=== PATIENT | female | born 1935 | race African-American/Black ===

== ENCOUNTER → 2016-03-31 | Outpatient (CLI) | payer MEDICARE, MEDICAID ==
[2016-03-31 11:46] LABS: HEMATOCRIT 36.6 % (36.0-47.0); HEMOGLOBIN 11.8 g/dL (12.0-15.5); HGB HCT DIFFERENCE -1.2; MEAN CORPUSCULAR HEMOGLOBIN 25.6 pg (27.0-33.4); MEAN CORPUSCULAR HGB CONC 32.3 g/dL (32.0-36.0); MEAN CORPUSCULAR VOLUME 79 fl (80-97); RED BLOOD COUNT 4.61 10^6/uL (3.72-5.28); RED CELL DISTRIBUTION WIDTH 16.3 % (11.5-14.0); WHITE BLOOD COUNT 8.1 10^3/uL (4.0-10.5)
[2016-03-31 12:15] LABS: ALANINE AMINOTRANSFERASE 59 U/L (9-52); ALBUMIN 3.2 g/dL (3.5-5.0); ALKALINE PHOSPHATASE 120 U/L (38-126); ANION GAP 11 (5-19); ASPARTATE AMINO TRANSFERASE 65 U/L (14-36); BILIRUBIN,TOTAL 0.5 mg/dL (0.2-1.3); BLOOD UREA NITROGEN 30 mg/dL (7-20); CALCIUM 9.7 mg/dL (8.4-10.2); CARBON DIOXIDE 23 mmol/L (22-30); CHLORIDE 112 mmol/L (98-107); CREATINE KINASE 47 U/L (30-135); CREATININE RESULT 1.46 mg/dL (0.52-1.25); GLUCOSE 108 mg/dL (75-110); POTASSIUM 4.9 mmol/L (3.6-5.0); SODIUM 145.9 mmol/L (137-145); TOTAL PROTEIN 7.9 g/dL (6.3-8.2)
== END ==
LOC: OD 10:50
PROVIDERS: ATTEND Obstetrics & Gynecology
DX: E11.9 Type 2 diabetes mellitus without complications (principal); I10 Essential (primary) hypertension; N28.9 Disorder of kidney and ureter, unspecified; Z51.81 Encounter for therapeutic drug level monitoring; I73.9 Peripheral vascular disease, unspecified
CPT/HCPCS: 36415; 80053; 82550; 85027

== ENCOUNTER → 2016-08-08 | Outpatient (CLI) | payer MEDICARE, MEDICAID ==
[2016-08-08 13:50] LABS: HEMATOCRIT 38.7 % (36.0-47.0); HEMOGLOBIN 12.5 g/dL (12.0-15.5); HGB HCT DIFFERENCE -1.2; MEAN CORPUSCULAR HGB CONC 32.4 g/dL (32.0-36.0); MEAN CORPUSCULAR VOLUME 80 fl (80-97); RED BLOOD COUNT 4.82 10^6/uL (3.72-5.28); RED CELL DISTRIBUTION WIDTH 15.4 % (11.5-14.0); WHITE BLOOD COUNT 6.6 10^3/uL (4.0-10.5)
[2016-08-08 14:14] LABS: ALANINE AMINOTRANSFERASE 81 U/L (9-52); ALBUMIN 3.5 g/dL (3.5-5.0); ALKALINE PHOSPHATASE 110 U/L (38-126); ANION GAP 10 (5-19); ASPARTATE AMINO TRANSFERASE 75 U/L (14-36); BILIRUBIN,DIRECT 0.3 mg/dL (0.0-0.4); BILIRUBIN,TOTAL 0.5 mg/dL (0.2-1.3); BLOOD UREA NITROGEN 34 mg/dL (7-20); CALCIUM 9.7 mg/dL (8.4-10.2); CARBON DIOXIDE 24 mmol/L (22-30); CHLORIDE 114 mmol/L (98-107); CREATINE KINASE 69 U/L (30-135); CREATININE RESULT 1.53 mg/dL (0.52-1.25); GLUCOSE 103 mg/dL (75-110); POTASSIUM 5.2 mmol/L (3.6-5.0); SODIUM 147.6 mmol/L (137-145); TOTAL PROTEIN 8.2 g/dL (6.3-8.2)
== END ==
LOC: OD 12:38
PROVIDERS: ATTEND Obstetrics & Gynecology
DX: E11.9 Type 2 diabetes mellitus without complications (principal); E78.5 Hyperlipidemia, unspecified; I10 Essential (primary) hypertension; Z79.899 Other long term (current) drug therapy
CPT/HCPCS: 36415; 80053; 82550; 83036; 85027

== ENCOUNTER → 2016-11-03 | Outpatient (CLI) | payer MEDICARE, MEDICAID ==
[2016-11-03 10:57] LABS: HEMATOCRIT 37.2 % (36.0-47.0); HEMOGLOBIN 12.2 g/dL (12.0-15.5); HGB HCT DIFFERENCE -0.6; MEAN CORPUSCULAR HEMOGLOBIN 26.7 pg (27.0-33.4); MEAN CORPUSCULAR HGB CONC 32.8 g/dL (32.0-36.0); MEAN CORPUSCULAR VOLUME 81 fl (80-97); RED BLOOD COUNT 4.57 10^6/uL (3.72-5.28); RED CELL DISTRIBUTION WIDTH 15.4 % (11.5-14.0); WHITE BLOOD COUNT 5.9 10^3/uL (4.0-10.5)
[2016-11-03 11:19] LABS: ALANINE AMINOTRANSFERASE 72 U/L (9-52); ALBUMIN 3.5 g/dL (3.5-5.0); ALKALINE PHOSPHATASE 107 U/L (38-126); ANION GAP 10 (5-19); ASPARTATE AMINO TRANSFERASE 67 U/L (14-36); BILIRUBIN,DIRECT 0.4 mg/dL (0.0-0.4); BILIRUBIN,TOTAL 0.7 mg/dL (0.2-1.3); BLOOD UREA NITROGEN 40 mg/dL (7-20); CALCIUM 9.8 mg/dL (8.4-10.2); CARBON DIOXIDE 22 mmol/L (22-30); CHLORIDE 113 mmol/L (98-107); CHOLESTEROL 183.67 mg/dL (0-200); CREATINE KINASE 81 U/L (30-135); CREATININE RESULT 1.82 mg/dL (0.52-1.25); Direct HDL 44 mg/dL (>40); GLUCOSE 98 mg/dL (75-110); SODIUM 144.5 mmol/L (137-145); TOTAL PROTEIN 8.4 g/dL (6.3-8.2); TRIGLYCERIDES 111 mg/dL (<150)
[2016-11-03 11:30] LABS: DIRECT LDL 89 mg/dL (<100)
== END ==
LOC: OD 09:49
PROVIDERS: ATTEND Obstetrics & Gynecology
DX: E11.22 Type 2 diabetes mellitus with diabetic chronic kidney disease (principal); I13.0 Hypertensive heart and chronic kidney disease with heart failure and stage 1 through stage 4 chronic kidney disease, or unspecified chronic kidney disease; N18.3 Chronic kidney disease, stage 3 (moderate); I50.9 Heart failure, unspecified; Z79.4 Long term (current) use of insulin; Z79.899 Other long term (current) drug therapy; E78.5 Hyperlipidemia, unspecified; I73.9 Peripheral vascular disease, unspecified; Z89.512 Acquired absence of left leg below knee
CPT/HCPCS: 36415; 80053; 80061; 82550; 83036; 85027

== ENCOUNTER 2017-05-23 18:08 | Emergency (ER) | payer MEDICARE, MEDICAID ==
[2017-05-23 18:31] VITALS: BP 160/68
--- NOTE | 2017-05-23 18:53 | ER Document Report ---
ED General - General Chief Complaint: Cough Stated Complaint: COUGH Time Seen by Provider: 05/23/17 18:36 Notes: 82-year-old female sent here by her PCP for left lower lobe pneumonia that was seen on an x-ray performed outpatient earlier today. Patient states that she has had some dry cough body aches headaches and fevers for the past 1 week. She has some minimal shortness of breath with exertion but does not have any at rest. No chest pain. She has not recently taken any antibiotics. She has not recently been admitted to the hospital. She does not wear oxygen at home. She has baseline leg swelling but no more than usual. She is unsure why she was sent here. TRAVEL OUTSIDE OF THE [place] IN LAST 30 DAYS: No - Related Data Allergies/Adverse Reactions: Penicillins Allergy (Verified 05/23/17 18:50) Past Medical History - Social History Smoking Status: Never Smoker Family History: Reviewed & Not Pertinent Patient has suicidal ideation: No Patient has homicidal ideation: No Renal/ Medical History: Denies: Hx Peritoneal Dialysis Review of Systems - Review of Systems Notes: See history of present illness for pertinent positive review of systems; otherwise all review of systems have been reviewed and are negative Physical Exam - Vital signs Vitals: Temp Pulse Resp BP Pulse Ox 99.7 F 80 18 160/68 H 95 05/23/17 18:29 05/23/17 18:29 05/23/17 18:29 05/23/17 18:29 05/23/17 18:29 - Notes Notes: PHYSICAL EXAMINATION: GENERAL: Well-appearing and in no acute distress. HEAD: Atraumatic, normocephalic. EYES: Pupils equal round and reactive to light, extraocular movements intact, sclera anicteric, conjunctiva are normal. ENT: nares patent, oropharynx clear without exudates. Moist mucous membranes. NECK: Normal range of motion, supple without lymphadenopathy LUNGS: CTAB and equal. No wheezes rales or rhonchi. HEART: Regular rate and rhythm without murmurs ABDOMEN: Soft, no tenderness. No guarding, no rebound EXTREMITIES: Normal range of motion, minimal 1+ pitting edema BLEs to the level of ankles. No cyanosis. NEUROLOGICAL: Cranial nerves grossly intact. Normal sensory/motor exams. PSYCH: Normal mood, normal affect. SKIN: Warm, Dry, normal turgor, no rashes or lesions noted Course - Re-evaluation Re-evalutation: 05/23/17 18:54 MEDICAL DECISION MAKING: Concern for pneumonia versus CHF Unlikely CHF given no change in her leg swelling and no shortness of breath at rest Her vital signs do not show any hypoxia hypotension tachycardia or fever Have discussed at length outpatient treatment with antibiotics and they are agreeable Will prescribe doxycycline as it should not interfere with her current medications Patient understands and agrees to the plan of care - Vital Signs Vital signs: Temp Pulse Resp BP Pulse Ox 99.7 F 80 18 160/68 H 95 05/23/17 18:29 05/23/17 18:29 05/23/17 18:29 05/23/17 18:29 05/23/17 18:29 Discharge - Discharge Clinical Impression: Left lower lobe pneumonia Qualifiers: Pneumonia type: due to unspecified organism Qualified Code(s): J18.1 - Lobar pneumonia, unspecified organism Condition: Good Disposition: HOME, SELF-CARE Additional Instructions: Finish the antibiotics. Do not skip any doses. You were seen in the emergency department at [facility]. If you were given any sedating medications, be sure not to operate heavy machinery (example - driving) and be sure you are not too sedated to walk appropriately. Please followup with your primary physician in the next few days for further management/evaluation. Please return to the emergency department for worsening of symptoms or any symptom that you deem to be concerning or life-threatening. Thank you for allowing us to be part of your care. Prescriptions: Doxycycline Hyclate 100 mg PO BID #20 capsule
== END 2017-05-23 18:50 | disposition home or self-care (01) ==
LOC: ER 18:08
DX: J18.1 Lobar pneumonia, unspecified organism (principal); Z88.0 Allergy status to penicillin
CPT/HCPCS: 99283

== ENCOUNTER → 2017-05-23 | Outpatient (CLI) | payer MEDICARE, MEDICAID ==
--- NOTE | 2017-05-23 11:31 | RADIOLOGY REPORT (SQ) ---
EXAM DESCRIPTION: CHEST PA/LATERAL COMPLETED DATE/TIME: 05/23/2017 11:11 am REASON FOR STUDY: ACUTE BRONCHITIS, UNSPECIFIED COMPARISON: None. EXAM PARAMETERS: NUMBER OF VIEWS: two views TECHNIQUE: Digital Frontal and Lateral radiographic views of the chest acquired. RADIATION DOSE: NA LIMITATIONS: none FINDINGS: LUNGS AND PLEURA: Diffuse interstitial pattern. Small left pleural effusion. MEDIASTINUM AND HILAR STRUCTURES: No masses or contour abnormalities. HEART AND VASCULAR STRUCTURES: Cardiomegaly. Vascular congestion. BONES: No acute findings. HARDWARE: Bilateral axillary clips. CABG. OTHER: No other significant finding. IMPRESSION: CHF exacerbation versus chronic CHF with superimposed left lower lobe pneumonia. Clinic al correlation is needed. TECHNICAL DOCUMENTATION: JOB ID: [id number] [employer]- All Rights Reserved Reading location - IP/workstation name: [email or web address]
[2017-05-23 13:03] LABS: ABSOLUTE BASOPHILS # (AUTO) 0.1 10^3/uL (0.0-0.2); ABSOLUTE EOSINOPHILS # (AUTO) 0.5 10^3/uL (0.0-0.6); ABSOLUTE MONOCYTES (AUTO) 0.9 10^3/uL (0.1-1.4); ABSOLUTE NEUT (AUTO) 7.2 10^3/uL (1.7-8.2); BASOPHILS % (AUTO) 0.6 % (0-2); EOSINOPHILS % (AUTO) 4.5 % (0-6); HEMATOCRIT 37.8 % (36.0-47.0); HEMOGLOBIN 12.3 g/dL (12.0-15.5); LYMPHOCYTES % (AUTO) 18.6 % (13-45); MEAN CORPUSCULAR HEMOGLOBIN 25.5 pg (27.0-33.4); MEAN CORPUSCULAR HGB CONC 32.5 g/dL (32.0-36.0); MEAN CORPUSCULAR VOLUME 79 fl (80-97); MONOCYTES % (AUTO) 8.7 % (3-13); SEGMENTED NEUTROPHILS % (AUTO) 67.6 % (42-78); TOTAL CELLS COUNTED % (AUTO) 100 %; WHITE BLOOD COUNT 10.6 10^3/uL (4.0-10.5)
[2017-05-23 13:11] LABS: ALANINE AMINOTRANSFERASE 71 U/L (9-52); ALBUMIN 3.6 g/dL (3.5-5.0); ALKALINE PHOSPHATASE 107 U/L (38-126); ANION GAP 9 (5-19); ASPARTATE AMINO TRANSFERASE 70 U/L (14-36); BILIRUBIN,DIRECT 0.5 mg/dL (0.0-0.4); BILIRUBIN,TOTAL 0.7 mg/dL (0.2-1.3); BLOOD UREA NITROGEN 34 mg/dL (7-20); CALCIUM 9.5 mg/dL (8.4-10.2); CARBON DIOXIDE 23 mmol/L (22-30); CHLORIDE 115 mmol/L (98-107); CHOLESTEROL 141.22 mg/dL (0-200); CREATINE KINASE 109 U/L (30-135); GLUCOSE 120 mg/dL (75-110); POTASSIUM 5.2 mmol/L (3.6-5.0); SODIUM 146.8 mmol/L (137-145); TOTAL PROTEIN 8.1 g/dL (6.3-8.2); TRIGLYCERIDES 89 mg/dL (<150)
[2017-05-23 13:22] LABS: DIRECT LDL 65 mg/dL (<100)
[2017-05-23 14:00] LABS: PLATELET COUNT 170 10^3/uL (150-450)
== END ==
LOC: OD 10:48
PROVIDERS: ATTEND Obstetrics & Gynecology
DX: J18.9 Pneumonia, unspecified organism (principal); E11.9 Type 2 diabetes mellitus without complications; Z79.4 Long term (current) use of insulin; E78.5 Hyperlipidemia, unspecified; I10 Essential (primary) hypertension; Z89.512 Acquired absence of left leg below knee
CPT/HCPCS: 36415; 71046; 80053; 80061; 82550; 84443; 85025

== ENCOUNTER → 2017-07-24 | Outpatient (CLI) | payer MEDICARE, MEDICAID ==
[2017-07-24 14:47] LABS: HEMOGLOBIN 12.1 g/dL (12.0-15.5); MEAN CORPUSCULAR HGB CONC 32.8 g/dL (32.0-36.0); MEAN CORPUSCULAR VOLUME 79 fl (80-97); PLATELET COUNT 154 10^3/uL (150-450); RED BLOOD COUNT 4.67 10^6/uL (3.72-5.28); RED CELL DISTRIBUTION WIDTH 15.7 % (11.5-14.0); WHITE BLOOD COUNT 7.7 10^3/uL (4.0-10.5)
[2017-07-24 15:12] LABS: ALBUMIN 3.3 g/dL (3.5-5.0); ASPARTATE AMINO TRANSFERASE 38 U/L (14-36); BILIRUBIN,DIRECT 0.4 mg/dL (0.0-0.4); BILIRUBIN,TOTAL 0.4 mg/dL (0.2-1.3); BLOOD UREA NITROGEN 42 mg/dL (7-20); CALCIUM 9.3 mg/dL (8.4-10.2); CARBON DIOXIDE 21 mmol/L (22-30); CHLORIDE 116 mmol/L (98-107); GLUCOSE 81 mg/dL (75-110); POTASSIUM 4.8 mmol/L (3.6-5.0); TOTAL PROTEIN 7.6 g/dL (6.3-8.2)
[2017-07-24 15:14] LABS: ALANINE AMINOTRANSFERASE 43 U/L (9-52); ALKALINE PHOSPHATASE 96 U/L (38-126); ANION GAP 12 (5-19); SODIUM 148.9 mmol/L (137-145)
== END ==
LOC: OD 14:00
PROVIDERS: ATTEND Obstetrics & Gynecology
DX: E11.9 Type 2 diabetes mellitus without complications (principal); I73.9 Peripheral vascular disease, unspecified; Z89.519 Acquired absence of unspecified leg below knee
CPT/HCPCS: 36415; 80053; 85027

== ENCOUNTER → 2017-08-03 | Outpatient (CLI) | payer MEDICARE, MEDICAID ==
[2017-08-03 11:00] LABS: ALANINE AMINOTRANSFERASE 45 U/L (9-52); ALBUMIN 3.4 g/dL (3.5-5.0); ALKALINE PHOSPHATASE 97 U/L (38-126); ANION GAP 10 (5-19); ASPARTATE AMINO TRANSFERASE 40 U/L (14-36); BILIRUBIN,DIRECT 0.3 mg/dL (0.0-0.4); BILIRUBIN,TOTAL 0.4 mg/dL (0.2-1.3); BLOOD UREA NITROGEN 42 mg/dL (7-20); CALCIUM 9.7 mg/dL (8.4-10.2); CARBON DIOXIDE 23 mmol/L (22-30); CHLORIDE 115 mmol/L (98-107); GLUCOSE 133 mg/dL (75-110); POTASSIUM 4.8 mmol/L (3.6-5.0); SODIUM 148.1 mmol/L (137-145); TOTAL PROTEIN 7.6 g/dL (6.3-8.2)
== END ==
LOC: OD 09:20
PROVIDERS: ATTEND Obstetrics & Gynecology
DX: I12.9 Hypertensive chronic kidney disease with stage 1 through stage 4 chronic kidney disease, or unspecified chronic kidney disease (principal); N18.3 Chronic kidney disease, stage 3 (moderate); E11.9 Type 2 diabetes mellitus without complications; Z79.4 Long term (current) use of insulin; R60.9 Edema, unspecified; Z89.512 Acquired absence of left leg below knee
CPT/HCPCS: 36415; 80053

== ENCOUNTER → 2018-01-02 | Outpatient (CLI) | payer MEDICARE, MEDICAID ==
[2018-01-02 13:27] LABS: ABSOLUTE EOSINOPHILS # (AUTO) 0.2 10^3/uL (0.0-0.6); ABSOLUTE LYMPHOCYTES (AUTO) 1.8 10^3/uL (0.5-4.7); ABSOLUTE MONOCYTES (AUTO) 0.5 10^3/uL (0.1-1.4); BASOPHILS % (AUTO) 0.4 % (0-2); EOSINOPHILS % (AUTO) 3.4 % (0-6); HEMATOCRIT 35.4 % (36.0-47.0); HEMOGLOBIN 11.7 g/dL (12.0-15.5); LYMPHOCYTES % (AUTO) 27.1 % (13-45); MEAN CORPUSCULAR HEMOGLOBIN 26.2 pg (27.0-33.4); MEAN CORPUSCULAR VOLUME 79 fl (80-97); MONOCYTES % (AUTO) 7.8 % (3-13); PLATELET COUNT 153 10^3/uL (150-450); RED BLOOD COUNT 4.46 10^6/uL (3.72-5.28); RED CELL DISTRIBUTION WIDTH 15.5 % (11.5-14.0); SEGMENTED NEUTROPHILS % (AUTO) 61.3 % (42-78); TOTAL CELLS COUNTED % (AUTO) 100 %; WHITE BLOOD COUNT 6.5 10^3/uL (4.0-10.5)
[2018-01-02 13:46] LABS: ALANINE AMINOTRANSFERASE 53 U/L (9-52); ALBUMIN 3.4 g/dL (3.5-5.0); ALKALINE PHOSPHATASE 86 U/L (38-126); ASPARTATE AMINO TRANSFERASE 44 U/L (14-36); BILIRUBIN,DIRECT 0.2 mg/dL (0.0-0.4); BILIRUBIN,TOTAL 0.5 mg/dL (0.2-1.3); BLOOD UREA NITROGEN 49 mg/dL (7-20); CALCIUM 9.6 mg/dL (8.4-10.2); CHOLESTEROL 142.27 mg/dL (0-200); CREATINE KINASE 72 U/L (30-135); GLUCOSE 116 mg/dL (75-110); POTASSIUM 5.7 mmol/L (3.6-5.0); TOTAL PROTEIN 7.7 g/dL (6.3-8.2); TRIGLYCERIDES 93 mg/dL (<150)
[2018-01-02 13:52] LABS: ANION GAP 6 (5-19); CARBON DIOXIDE 23 mmol/L (22-30); CHLORIDE 116 mmol/L (98-107); SODIUM 145.1 mmol/L (137-145)
[2018-01-02 13:59] LABS: DIRECT LDL 67 mg/dL (<100)
== END ==
LOC: OD 12:30
PROVIDERS: ATTEND Obstetrics & Gynecology
DX: E78.5 Hyperlipidemia, unspecified (principal); E11.22 Type 2 diabetes mellitus with diabetic chronic kidney disease; Z79.4 Long term (current) use of insulin; N18.3 Chronic kidney disease, stage 3 (moderate)
CPT/HCPCS: 36415; 80053; 80061; 82550; 84443; 85025

== ENCOUNTER → 2018-04-18 | Outpatient (CLI) | payer MEDICARE, MEDICAID ==
[2018-04-18 10:25] LABS: ABSOLUTE EOSINOPHILS # (AUTO) 0.2 10^3/uL (0.0-0.6); ABSOLUTE LYMPHOCYTES (AUTO) 1.7 10^3/uL (0.5-4.7); ABSOLUTE MONOCYTES (AUTO) 0.6 10^3/uL (0.1-1.4); ABSOLUTE NEUT (AUTO) 5.5 10^3/uL (1.7-8.2); BASOPHILS % (AUTO) 0.3 % (0-2); HEMATOCRIT 33.4 % (36.0-47.0); HEMOGLOBIN 10.9 g/dL (12.0-15.5); LYMPHOCYTES % (AUTO) 20.8 % (13-45); MEAN CORPUSCULAR HEMOGLOBIN 25.8 pg (27.0-33.4); MEAN CORPUSCULAR HGB CONC 32.5 g/dL (32.0-36.0); MEAN CORPUSCULAR VOLUME 79 fl (80-97); MONOCYTES % (AUTO) 7.4 % (3-13); PLATELET COUNT 169 10^3/uL (150-450); RED BLOOD COUNT 4.22 10^6/uL (3.72-5.28); RED CELL DISTRIBUTION WIDTH 15.6 % (11.5-14.0); SEGMENTED NEUTROPHILS % (AUTO) 68.5 % (42-78); TOTAL CELLS COUNTED % (AUTO) 100 %
[2018-04-18 10:51] LABS: ALBUMIN 3.7 g/dL (3.5-5.0); ANION GAP 7 (5-19); BLOOD UREA NITROGEN 53 mg/dL (7-20); CALCIUM 9.3 mg/dL (8.4-10.2); CARBON DIOXIDE 20 mmol/L (22-30); CHLORIDE 119 mmol/L (98-107); GLUCOSE 130 mg/dL (75-110); PHOSPHORUS 4.5 mg/dL (2.5-4.5); POTASSIUM 5.1 mmol/L (3.6-5.0); SODIUM 146.3 mmol/L (137-145)
[2018-04-18 14:00] LABS: APPEARANCE,URINE SLIGHTLY-CLOUDY; BILIRUBIN,URINE NEGATIVE (NEGATIVE); COLOR,URINE YELLOW; GLUCOSE, URINE NEGATIVE (NEGATIVE); KETONES,URINE NEGATIVE (NEGATIVE); LEUKOCYTE ESTERASE,URINE MODERATE (NEGATIVE); NITRITE,URINE NEGATIVE (NEGATIVE); PROTEIN,URINE 100 mg/dL (NEGATIVE); URINE SPECIFIC GRAVITY 1.011; UROBILINOGEN,URINE NEGATIVE mg/dL (<2.0)
[2018-04-19 12:38] LABS: CREATININE URINE 53.8 mg/dL (Not Estab.)
[2018-04-19 14:30] LABS: MICROALBUMIN URINE 692.5 ug/mL (Not Estab.)
== END ==
LOC: OD 09:21
PROVIDERS: ATTEND Internal Medicine Nephrology
DX: I12.9 Hypertensive chronic kidney disease with stage 1 through stage 4 chronic kidney disease, or unspecified chronic kidney disease (principal); N18.4 Chronic kidney disease, stage 4 (severe); E11.22 Type 2 diabetes mellitus with diabetic chronic kidney disease
CPT/HCPCS: 36415; 80069; 81001; 82043; 82306; 82570; 83970; 85025

== ENCOUNTER → 2018-10-11 | Outpatient (CLI) | payer MEDICARE, MEDICAID ==
[2018-10-11 09:49] LABS: ABSOLUTE EOSINOPHILS # (AUTO) 0.3 10^3/uL (0.0-0.6); ABSOLUTE LYMPHOCYTES (AUTO) 1.7 10^3/uL (0.5-4.7); ABSOLUTE MONOCYTES (AUTO) 0.6 10^3/uL (0.1-1.4); ABSOLUTE NEUT (AUTO) 4.5 10^3/uL (1.7-8.2); BASOPHILS % (AUTO) 0.6 % (0-2); EOSINOPHILS % (AUTO) 3.7 % (0-6); HEMATOCRIT 35.5 % (36.0-47.0); HEMOGLOBIN 11.4 g/dL (12.0-15.5); LYMPHOCYTES % (AUTO) 23.9 % (13-45); MEAN CORPUSCULAR HEMOGLOBIN 25.2 pg (27.0-33.4); MEAN CORPUSCULAR HGB CONC 32.2 g/dL (32.0-36.0); MEAN CORPUSCULAR VOLUME 78 fl (80-97); MONOCYTES % (AUTO) 8.4 % (3-13); PLATELET COUNT 169 10^3/uL (150-450); RED BLOOD COUNT 4.54 10^6/uL (3.72-5.28); RED CELL DISTRIBUTION WIDTH 16.6 % (11.5-14.0); SEGMENTED NEUTROPHILS % (AUTO) 63.4 % (42-78); TOTAL CELLS COUNTED % (AUTO) 100 %
[2018-10-11 10:07] LABS: ALBUMIN 3.4 g/dL (3.5-5.0); ANION GAP 6 (5-19); BLOOD UREA NITROGEN 51 mg/dL (7-20); CALCIUM 9.7 mg/dL (8.4-10.2); CARBON DIOXIDE 27 mmol/L (22-30); CHLORIDE 109 mmol/L (98-107); GLUCOSE 107 mg/dL (75-110); IRON(TIBC) 73.4 ug/dL (37-170); POTASSIUM 4.9 mmol/L (3.6-5.0)
== END ==
LOC: OD 09:08
PROVIDERS: ATTEND Internal Medicine Nephrology
DX: E11.22 Type 2 diabetes mellitus with diabetic chronic kidney disease (principal); I12.9 Hypertensive chronic kidney disease with stage 1 through stage 4 chronic kidney disease, or unspecified chronic kidney disease; N18.4 Chronic kidney disease, stage 4 (severe); R80.9 Proteinuria, unspecified; E87.2 Acidosis; E55.9 Vitamin D deficiency, unspecified; D50.9 Iron deficiency anemia, unspecified
CPT/HCPCS: 36415; 80069; 82306; 82728; 83540; 83550; 83970; 85025

== ENCOUNTER → 2019-01-07 | Outpatient (CLI) | payer MEDICARE, MEDICAID ==
[2019-01-07 09:41] LABS: ABSOLUTE EOSINOPHILS # (AUTO) 0.3 10^3/uL (0.0-0.6); ABSOLUTE LYMPHOCYTES (AUTO) 1.9 10^3/uL (0.5-4.7); ABSOLUTE MONOCYTES (AUTO) 0.6 10^3/uL (0.1-1.4); ABSOLUTE NEUT (AUTO) 4.7 10^3/uL (1.7-8.2); BASOPHILS % (AUTO) 0.6 % (0-2); EOSINOPHILS % (AUTO) 3.9 % (0-6); HEMATOCRIT 34.8 % (36.0-47.0); HEMOGLOBIN 11.3 g/dL (12.0-15.5); LYMPHOCYTES % (AUTO) 25.4 % (13-45); MEAN CORPUSCULAR HEMOGLOBIN 25.6 pg (27.0-33.4); MEAN CORPUSCULAR HGB CONC 32.3 g/dL (32.0-36.0); MEAN CORPUSCULAR VOLUME 79 fl (80-97); MONOCYTES % (AUTO) 7.6 % (3-13); PLATELET COUNT 168 10^3/uL (150-450); RED BLOOD COUNT 4.41 10^6/uL (3.72-5.28); RED CELL DISTRIBUTION WIDTH 15.3 % (11.5-14.0); SEGMENTED NEUTROPHILS % (AUTO) 62.5 % (42-78); TOTAL CELLS COUNTED % (AUTO) 100 %; WHITE BLOOD COUNT 7.5 10^3/uL (4.0-10.5)
[2019-01-07 09:55] LABS: APPEARANCE,URINE CLOUDY; BILIRUBIN,URINE NEGATIVE (NEGATIVE); COLOR,URINE YELLOW; GLUCOSE, URINE NEGATIVE (NEGATIVE); KETONES,URINE NEGATIVE (NEGATIVE); LEUKOCYTE ESTERASE,URINE LARGE (NEGATIVE); NITRITE,URINE NEGATIVE (NEGATIVE); PROTEIN,URINE 30 mg/dL (NEGATIVE); UROBILINOGEN,URINE NEGATIVE mg/dL (<2.0)
[2019-01-07 10:06] LABS: ALBUMIN 3.6 g/dL (3.5-5.0); ANION GAP 9 (5-19); BLOOD UREA NITROGEN 68 mg/dL (7-20); CARBON DIOXIDE 28 mmol/L (22-30); CHLORIDE 105 mmol/L (98-107); GLUCOSE 94 mg/dL (75-110); IRON(TIBC) 73.3 ug/dL (37-170); PHOSPHORUS 4.7 mg/dL (2.5-4.5); POTASSIUM 4.5 mmol/L (3.6-5.0)
[2019-01-08 11:37] LABS: CREATININE URINE 55.6 mg/dL (Not Estab.); MICROALBUMIN URINE 152.8 ug/mL (Not Estab.)
== END ==
LOC: OD 09:11
PROVIDERS: ATTEND Internal Medicine Nephrology
DX: E11.22 Type 2 diabetes mellitus with diabetic chronic kidney disease (principal); I12.9 Hypertensive chronic kidney disease with stage 1 through stage 4 chronic kidney disease, or unspecified chronic kidney disease; N18.4 Chronic kidney disease, stage 4 (severe); D63.1 Anemia in chronic kidney disease; R80.9 Proteinuria, unspecified; N25.81 Secondary hyperparathyroidism of renal origin
CPT/HCPCS: 36415; 80069; 81001; 82043; 82306; 82570; 82728; 83540; 83550; 83970; 85025

== ENCOUNTER → 2019-01-15 | Outpatient (CLI) | payer MEDICARE, MEDICAID | LOC: OD 11:17 | PROVIDERS: ATTEND Internal Medicine Nephrology | DX: N17.9 Acute kidney failure, unspecified (principal); N18.4 Chronic kidney disease, stage 4 (severe); N39.0 Urinary tract infection, site not specified | CPT/HCPCS: 87086; 87088 ==

== ENCOUNTER → 2019-01-29 | Outpatient (CLI) | payer MEDICARE, MEDICAID ==
[2019-01-29 10:24] LABS: ANION GAP 10 (5-19); BLOOD UREA NITROGEN 55 mg/dL (7-20); CALCIUM 9.9 mg/dL (8.4-10.2); CARBON DIOXIDE 25 mmol/L (22-30); CHLORIDE 106 mmol/L (98-107); GLUCOSE 124 mg/dL (75-110); POTASSIUM 5.5 mmol/L (3.6-5.0)
== END ==
LOC: OD 09:34
PROVIDERS: ATTEND Internal Medicine Nephrology
DX: N17.9 Acute kidney failure, unspecified (principal); I12.9 Hypertensive chronic kidney disease with stage 1 through stage 4 chronic kidney disease, or unspecified chronic kidney disease; N18.4 Chronic kidney disease, stage 4 (severe); E11.22 Type 2 diabetes mellitus with diabetic chronic kidney disease; D63.1 Anemia in chronic kidney disease; N39.0 Urinary tract infection, site not specified; E87.5 Hyperkalemia
CPT/HCPCS: 36415; 80048; 84132

== ENCOUNTER → 2019-04-09 | Outpatient (CLI) | payer MEDICARE, MEDICAID ==
[2019-04-09 10:50] LABS: ABSOLUTE BASOPHILS # (AUTO) 0.1 10^3/uL (0.0-0.2); ABSOLUTE EOSINOPHILS # (AUTO) 0.3 10^3/uL (0.0-0.6); ABSOLUTE MONOCYTES (AUTO) 0.6 10^3/uL (0.1-1.4); ABSOLUTE NEUT (AUTO) 5.5 10^3/uL (1.7-8.2); BASOPHILS % (AUTO) 0.9 % (0-2); EOSINOPHILS % (AUTO) 3.3 % (0-6); HEMATOCRIT 34.8 % (36.0-47.0); HEMOGLOBIN 11.5 g/dL (12.0-15.5); LYMPHOCYTES % (AUTO) 23.5 % (13-45); MEAN CORPUSCULAR HEMOGLOBIN 25.9 pg (27.0-33.4); MEAN CORPUSCULAR VOLUME 78 fl (80-97); MONOCYTES % (AUTO) 6.9 % (3-13); RED BLOOD COUNT 4.44 10^6/uL (3.72-5.28); RED CELL DISTRIBUTION WIDTH 16.3 % (11.5-14.0); SEGMENTED NEUTROPHILS % (AUTO) 65.4 % (42-78); TOTAL CELLS COUNTED % (AUTO) 100 %; WHITE BLOOD COUNT 8.4 10^3/uL (4.0-10.5)
[2019-04-09 11:58] LABS: PLATELET COUNT 173 10^3/uL (150-450)
[2019-04-10 10:19] LABS: APPEARANCE,URINE SLIGHTLY-CLOUDY; BILIRUBIN,URINE NEGATIVE (NEGATIVE); COLOR,URINE YELLOW; GLUCOSE, URINE NEGATIVE (NEGATIVE); KETONES,URINE NEGATIVE (NEGATIVE); PROTEIN,URINE NEGATIVE (NEGATIVE); URINE SPECIFIC GRAVITY 1.009; UROBILINOGEN,URINE NEGATIVE mg/dL (<2.0)
[2019-04-10 10:37] LABS: ALBUMIN 3.6 g/dL (3.5-5.0); ANION GAP 10 (5-19); BLOOD UREA NITROGEN 52 mg/dL (7-20); CALCIUM 10.2 mg/dL (8.4-10.2); CARBON DIOXIDE 25 mmol/L (22-30); CHLORIDE 110 mmol/L (98-107); GLUCOSE 99 mg/dL (75-110); PHOSPHORUS 4.7 mg/dL (2.5-4.5); POTASSIUM 4.2 mmol/L (3.6-5.0)
[2019-04-11 13:37] LABS: CREATININE URINE 46.6 mg/dL (Not Estab.)
== END ==
LOC: OD 09:33
PROVIDERS: ATTEND Internal Medicine Nephrology
DX: N17.9 Acute kidney failure, unspecified (principal); I12.9 Hypertensive chronic kidney disease with stage 1 through stage 4 chronic kidney disease, or unspecified chronic kidney disease; N18.4 Chronic kidney disease, stage 4 (severe); E11.22 Type 2 diabetes mellitus with diabetic chronic kidney disease; D63.1 Anemia in chronic kidney disease; N39.0 Urinary tract infection, site not specified
CPT/HCPCS: 36415; 80069; 81001; 82043; 82570; 85025; 87086; 87088; 87186

== ENCOUNTER 2020-02-28 09:25 | Inpatient (IN) | payer MEDICARE, MEDICAID ==
[2020-02-28 09:53] LABS: ABSOLUTE BASOPHILS # (AUTO) 0.1 10^3/uL (0.0-0.2); ABSOLUTE EOSINOPHILS # (AUTO) 0.3 10^3/uL (0.0-0.6); ABSOLUTE LYMPHOCYTES (AUTO) 2.2 10^3/uL (0.5-4.7); ABSOLUTE MONOCYTES (AUTO) 0.7 10^3/uL (0.1-1.4); ABSOLUTE NEUT (AUTO) 9.2 10^3/uL (1.7-8.2); BASOPHILS % (AUTO) 0.5 % (0-2); EOSINOPHILS % (AUTO) 2.8 % (0-6); HEMATOCRIT 31.4 % (36.0-47.0); HEMOGLOBIN 9.9 g/dL (12.0-15.5); LYMPHOCYTES % (AUTO) 17.7 % (13-45); MEAN CORPUSCULAR HEMOGLOBIN 24.8 pg (27.0-33.4); MEAN CORPUSCULAR HGB CONC 31.7 g/dL (32.0-36.0); MEAN CORPUSCULAR VOLUME 78 fl (80-97); MONOCYTES % (AUTO) 5.4 % (3-13); PLATELET COUNT 235 10^3/uL (150-450); RED CELL DISTRIBUTION WIDTH 17.5 % (11.5-14.0); SEGMENTED NEUTROPHILS % (AUTO) 73.6 % (42-78); TOTAL CELLS COUNTED % (AUTO) 100 %; WHITE BLOOD COUNT 12.5 10^3/uL (4.0-10.5)
[2020-02-28 10:01] LABS: ARTERIAL BLOOD BASE EXCESS -4.9 mmol/L; ARTERIAL BLOOD FIO2 60%; ARTERIAL BLOOD H2CO3 1.23 mmol/L (1.05-1.35); ARTERIAL BLOOD HCO3 20.8 mmol/L (20-24); ARTERIAL BLOOD O2 SATURATION 96.1 % (94-98); ARTERIAL BLOOD PCO2 40.8 mmHg (35-45); ARTERIAL BLOOD PH 7.33 (7.35-7.45); ARTERIAL BLOOD PO2 88.2 mmHg (80-100)
--- NOTE | 2020-02-28 10:09 | ER Document Report ---
ED Respiratory Problem - General Chief Complaint: Difficulty Swallowing Stated Complaint: DIFFICULTY BREATHING Time Seen by Provider: 02/28/20 09:53 Mode of Arrival: Medic Information source: Patient, [facility] Records Notes: This 84-year-old female patient comes emergency room for difficulty breathing. She states her breathing started getting bad last night. She was brought in by EMS on CPAP and immediately changed to BiPAP. She is currently on BiPAP 60% FiO2 with a pulse oximetry reading of 99 to 100%. She states that her breathing is much better after being placed on the BiPAP. She states she has never had this kind of problem breathing before, no prior history congestive heart failure. She is a type II diabetic on insulin, hypertension, hyperlipidemia, she does take Lasix 40 mg once daily. There is no fever, nausea, vomiting, or diarrhea. She has not been coughing much. TRAVEL OUTSIDE OF THE [place] IN LAST 30 DAYS: No - Related Data Allergies/Adverse Reactions: Penicillins Allergy (Verified 02/28/20 09:49) Past Medical History - General Information source: Patient, Emergency Med Personnel, [facility] Records - Social History Smoking Status: Never Smoker Cigarette use (# per day): No Chew tobacco use (# tins/day): No Smoking Education Provided: No Frequency of alcohol use: None Drug Abuse: None Lives with: Family Family History: Reviewed & Not Pertinent Patient has homicidal ideation: No - Past Medical History Cardiac Medical History: Reports: Hx Hypercholesterolemia, Hx Hypertension Endocrine Medical History: Reports: Hx Diabetes Mellitus Type 2 Renal/ Medical History: Reports: Hx Renal Insufficiency Past Surgical History: Reports: Hx Cardiac Surgery - CABG X4 in 1999, Hx Orthop edic Surgery - 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 Review of Systems - Review of Systems Constitutional: No symptoms reported EENT: No symptoms reported Cardiovascular: No symptoms reported Respiratory: See HPI. denies: Cough Gastrointestinal: No symptoms reported Genitourinary: No symptoms reported Female Genitourinary: Post menopausal Musculoskeletal: No symptoms reported Skin: No symptoms reported Hematologic/Lymphatic: No symptoms reported Neurological/Psychological: No symptoms reported Physical Exam - Vital signs Vitals: Resp Pulse Ox 15 97 02/28/20 09:41 02/28/20 09:41 - HEENT Head: Normocephalic, Atraumatic Eyes: Normal Pupils: PERRL - Respiratory Respiratory status: Labored, Tachypnea Breath sounds: Rales - Cardiovascular Rhythm: Regular Heart sounds: Normal auscultation Murmur: No - Abdominal Inspection: Morbidly Obese Bowel sounds: Normal Tenderness: Nontender - Back Back: Other - Fairly severe kyphosis of the cervical and thoracic spine - Extremities General upper extremity: Normal inspection General lower extremity: Edema - Trace edema in the right lower extremity. Left BKA. - Neurological Neuro grossly intact: Yes - Psychological Associated symptoms: Normal affect, Normal mood - Skin Skin Temperature: Warm Skin Moisture: Dry Skin Color: Normal Course - Re-evaluation Re-evalutation: 02/28/20 11:16 The patient was evaluated during the global COVID-19 pandemic and that diagnosis was suspected/considered upon their initial presentation. Their evaluation, treatment and testing was consistent with current guidelines for patients who present with complaints or symptoms that may be related to COVID-19. Patient's lab work shows a elevated D-dimer at 3.85, ABG shows pH 7.33, PCO2 4 0.8, PO2 of 88. 02/28/20 13:39 - Vital Signs Vital signs: Temp Pulse Resp BP Pulse Ox 97.3 F 67 19 116/44 L 99 02/29/20 15:50 02/29/20 20:01 02/29/20 20:01 02/29/20 15:50 02/29/20 20:01 - Laboratory Results Result Diagrams: 02/29/20 07:01 02/29/20 08:39 Laboratory Results Interpreted: 02/28/20 02/28/20 02/28/20 09:42 09:42 09:42 WBC 12.5 H Hgb 9.9 L Hct 31.4 L MCV 78 L MCH 24.8 L MCHC 31.7 L RDW 17.5 H Absolute Neuts (auto) 9.2 H D-Dimer ABG pH 7.33 L Chloride 112 H Carbon Dioxide 19 L BUN 51 H Creatinine 2.10 H Est GFR ( Amer) 27 L Est GFR (MDRD) Non-Af 22 L Glucose 234 H Lactic Acid Ferritin AST 44 H NT-Pro-B Natriuret Pep 02/28/20 02/28/20 02/28/20 09:42 09:42 09:42 WBC Hgb Hct MCV MCH MCHC RDW Absolute Neuts (auto) D-Dimer 3.85 H ABG pH Chloride Carbon Dioxide BUN Creatinine Est GFR ( Amer) Est GFR (MDRD) Non-Af Glucose Lactic Acid 3.1 H Ferritin 524.00 H AST NT-Pro-B Natriuret Pep 02/28/20 09:42 WBC Hgb Hct MCV MCH MCHC RDW Absolute Neuts (auto) D-Dimer ABG pH Chloride Carbon Dioxide BUN Creatinine Est GFR ( Amer) Est GFR (MDRD) Non-Af Glucose Lactic Acid Ferritin AST NT-Pro-B Natriuret Pep 3980 H Critical Laboratory Results Reviewed: Yes Attending or Supervising Physician who Reviewed Labs: MARIANA SHAHID - hypoxia - Radiology Results Radiology Results Interpreted: 02/28/20 11:17 Portable chest x-ray shows cardiomegaly with bilateral basilar predominant pleural and parenchymal opacities Critical Radiology Results Reviewed: Yes Attending or Supervising Physician who Reviewed Radiology: MARIANA SHAHID - CHF - EKG Interpretation by [place] EKG shows normal: [place], Intervals, QRS Complexes, ST-T Waves Rate: Normal - 92 Rhythm: A.Flutter [place]/QRS: LBBB When compared to previous EKG there are: Previous EKG unavailable Critical Care Note - Critical Care Note Total time excluding time spent on procedures (mins): 35 Comments: At least 35 minutes spent evaluating patient, collecting prior to arrival history from EMS, frequent reevaluations to see how well she was doing with BiPAP. Time spent evaluating lab work, chest x-ray, EKG. Time spent speaking with the hospitalist service to get the patient admitted. Discharge - Discharge Clinical Impression: Hypoxemia, Elevated d-dimer Bilateral pneumonia Qualifiers: Pneumonia type: due to unspecified organism Lung location: lower lobe of lung Qualified Code(s): J18.9 - Pneumonia, unspecified organism Atrial flutter Qualifiers: Atrial flutter type: unspecified Qualified Code(s): I48.92 - Unspecified atrial flutter Chronic renal insufficiency, stage III (moderate) Qualifiers: Chronic kidney disease stage 3 subtype: stage 3b (GFR 30-44) Qualified Code(s): N18.32 - Chronic kidney disease, stage 3b Condition: Fair Disposition: ADMITTED INPATIENT Admitting Provider: Jamari (Hospitalist) Unit Admitted: [facility]
[2020-02-28 10:21] LABS: ALBUMIN 3.6 g/dL (3.5-5.0); ALKALINE PHOSPHATASE 118 U/L (38-126); ANION GAP 11 (5-19); ASPARTATE AMINO TRANSFERASE 44 U/L (14-36); BILIRUBIN,DIRECT 0.3 mg/dL (0.0-0.4); BILIRUBIN,TOTAL 0.8 mg/dL (0.2-1.3); BLOOD UREA NITROGEN 51 mg/dL (7-20); CALCIUM 9.6 mg/dL (8.4-10.2); CARBON DIOXIDE 19 mmol/L (22-30); CHLORIDE 112 mmol/L (98-107); GLUCOSE 234 mg/dL (75-110); POTASSIUM 4.8 mmol/L (3.6-5.0); TOTAL PROTEIN 8.2 g/dL (6.3-8.2)
[2020-02-28 10:26] LABS: CREATINE KINASE 57 U/L (30-135)
--- NOTE | 2020-02-28 10:31 | RADIOLOGY REPORT (SQ) ---
EXAM DESCRIPTION: CHEST SINGLE VIEW IMAGES COMPLETED DATE/TIME: 02/28/2020 10:14 am REASON FOR STUDY: sob COMPARISON: AP and lateral views of the chest from 05/23/2017. EXAM PARAMETERS: NUMBER OF VIEWS: One view. TECHNIQUE: An AP view of the chest was obtained. RADIATION DOSE: NA LIMITATIONS: None. FINDINGS: LUNGS AND PLEURA: Bilateral basilar predominant pleural and parenchymal opacities that obs cure the contours of the hemidiaphragms and blunt the costophrenic sulci. There is no pneumothorax. MEDIASTINUM AND HILAR STRUCTURES: No mediastinal or hilar contour abnormality. HEART AND VASCULAR STRUCTURES: The cardiac silhouette is enlarged. BONES: No acute findings. HARDWARE: Sternotomy wires and surgical clips that project within the axillae. OTHER: No other finding. IMPRESSION: Cardiomegaly and bilateral basilar predominant pleural and parenchymal opacities. Clini vicenta correlation for signs and symptoms of CHF is recommended. TECHNICAL DOCUMENTATION: JOB ID: [id number] 2010 [employer]- All Rights Reserved Reading location - IP/workstation name: [email or web address]
[2020-02-28 11:11] LABS: C-REACTIVE PROTEIN < 5.0 mg/L (<10.0)
[2020-02-28 11:23] LABS: TROPONIN I 0.07 ng/mL
--- NOTE | 2020-02-28 13:30 | EKG REPORT ---
SEVERITY:- ABNORMAL ECG - A FIB LEFT BUNDLE BRANCH BLOCK : Confirmed by: Brigido Stratton 28-Feb-2020 13:29:41
[2020-02-28] MEDS ORDERED: ACETAMINOPHEN 325 MG TABLET PO PRN (14:03)
[2020-02-28] MEDS ORDERED: ONDANSETRON HCL INJ/PF 4 MG/2 ML SDV IV PRN (14:03)
[2020-02-28] MEDS ORDERED: DEXTROSE 50%-WATER 25 GM/50 ML DISP.SYRIN IV PRN ×2 (14:15)
[2020-02-28] MEDS ORDERED: GLUCAGON,HUMAN RECOMB 1 MG INJ IM PRN (14:15)
[2020-02-28] MEDS ORDERED: DEXTROSE 40% GEL 15 GM TUBE PO PRN ×2 (14:15)
[2020-02-28] MEDS ORDERED: ZINC SULFATE 220 MG CAPSULE PO ONE (15:00)
[2020-02-28] MEDS ORDERED: FUROSEMIDE INJ/PF 40 MG/4 ML SDV IV ONE (15:00)
[2020-02-28] MEDS ORDERED: AZITHROMYCIN INJ 500 MG VIAL IV SCH (16:00)
[2020-02-28] MEDS: INSULIN LISPRO 100 UNIT/ML 3 ML VIAL SUBCUT SCH ×3 (16:11→22:11)
[2020-02-28] MEDS: CEFTRIAXONE 2 GM/D5W RTU 2 GM/50 ML RTUPB IV SCH (16:12)
[2020-02-28] MEDS: NIFEDIPINE 30 MG TAB.ER.24 PO SCH (17:54)
[2020-02-28] MEDS ORDERED: INSULIN LISPRO 100 UNIT/ML SQ SCH (18:00)
[2020-02-28] MEDS ORDERED: ASCORBIC ACID 500 MG TABLET PO SCH (18:00)
[2020-02-28] MEDS ORDERED: INSULN SQ SCH (18:00)
[2020-02-28] MEDS ORDERED: SODIUM BICARBONATE 650 MG TABLET PO SCH (18:00)
[2020-02-28] MEDS ORDERED: (PENDING PHARMACY ID) (Carvedilol [Carvedilol] 25 MG Tablet) PO SCH (18:00)
[2020-02-28] MEDS ORDERED: ASPIRIN 81 MG TABLET, CHEWABLE PO ONE (18:45)
--- NOTE | 2020-02-28 19:20 | RADIOLOGY REPORT (SQ) ---
EXAM DESCRIPTION: VENOUS UNILATERAL LOWER IMAGES COMPLETED DATE/TIME: 02/28/2020 7:12 pm REASON FOR STUDY: lower leg swelling COMPARISON: None. TECHNIQUE: Dynamic and static farmer scale and color images acquired of the right leg venous system. S elected spectral images acquired with additional compression and augmentation maneuvers. The contrala teral common femoral vein and saphenofemoral junction were also imaged. Images stored on PACS. LIMITATIONS: Peroneal veins not seen because of body habitus and swelling. FINDINGS: COMMON FEMORAL: Normal phasicity, compression and augmentation. No visualized echogenic ma terial on farmer scale. No defects on color images. FEMORAL: Normal compression and augmentation. No visualized echogenic material on farmer scale. No defe cts on color images. POPLITEAL: Normal compression, augmentation. No visualized echogenic material on farmer scale. No defec ts on color images. CALF VESSELS: Normal compression, augmentation. No visualized echogenic material on farmer scale. No de fects on color images. GSV and SSV: Normal compression, augmentation. No visualized echogenic material on farmer scale. No def ects on color images. ANY DEEP VENOUS INSUFFICIENCY: Not evaluated. ANY EVIDENCE OF POPLITEAL CYST: No. OTHER: No other significant finding. CONTRALATERAL COMMON FEMORAL VEIN AND SAPHENOFEMORAL JUNCTION: Normal phasicity, compression and augmentation. No visualized echogenic material on farmer scale. No de fects on color images. IMPRESSION: NO EVIDENCE DVT OR SVT IN THE RIGHT LEG. TECHNICAL DOCUMENTATION: JOB ID: [id number] 2010 [employer]- All Rights Reserved Reading location - IP/workstation name: [email or web address]
--- NOTE | 2020-02-28 19:33 | PDOC H&P ---
History of Present Illness Admission Date/PCP: 02/28/20 14:39 MIQUEL DESOUZA MD Patient complains of: shortness of breath History of Present Illness: CELSO KENNEDY is a 84 year old female, PMH of Type 2 DM, HTN, HLD, Quadruple bypass who came in the ED due to shortness of breath. The patient was apparently feeling well yesterday morning then last night she noted SOB, which persisted until this morning. She denied any fever, cough, or chest pain, no palpitations. EMS was called and it was noted that her O2 sat was 60% , she was started on CPAP by EMS. In the ED her sats were noted to be low 80s on CPAP hence she was put on BIpap 100% FIO2 and her marily improved to 99%. BP in the ED was 145/59, HR 108, RR 25. CBC showed WBC 12.5, Hgb 9.9, plt 235. CMP showed normal sodium and potassium. crea 2.1 which is close to her baseline. CXR showed cardiomegaly and bibasilar opacities. BNP 3980. Rapid COVID negative. Hospitalist service called for further management. 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 Social History Lives with: Family Smoking Status: Never Smoker - Advance Directive Resuscitation Status: Full Code Surrogate healthcare decision maker:: CODE status discussed with patient and she wants to be full code. She named her daughter Tania as her HCPOA. Family History Family History: Reviewed & Not Pertinent Parental Family History Reviewed: Yes Children Family History Reviewed: Yes Sibling(s) Family History Reviewed.: Yes Medication/Allergy Home Medications: Atorvastatin Calcium [Lipitor 40 mg Tablet] 40 mg PO QHS 02/28/20 Carvedilol 25 mg PO BID 02/28/20 Clonidine HCl [Catapres 0.2 mg Tablet] 0.2 mg PO Q8 02/28/20 Clopidogrel Bisulfate [Plavix 75 mg Tablet] 75 mg PO DAILY 02/28/20 Insulin Glargine,Hum.rec.anlog [Lantus Insulin 100 Unit/mL Insulin Pen] 44 units SQ DAILY 02/28/20 Insulin Lispro [Humalog Kwikpen] 15 unit SQ BID 02/28/20 Lisinopril [Zestril] 40 mg PO DAILY 02/28/20 Nifedipine [Nifedipine ER] 30 mg PO BID 02/28/20 Paricalcitol [Zemplar 1 Mcg Capsule] 1 mcg PO DAILY 02/28/20 Sodium Bicarbonate [Sodium Bicarbonate 650 mg Tablet] 650 mg PO BID 02/28/20 Allergies/Adverse Reactions: Penicillins Allergy (Verified 02/28/20 09:49) Review of Systems Constitutional: PRESENT: as per HPI. ABSENT: chills, fatigue, fever(s), weakness Eyes: PRESENT: visual disturbances Ears: PRESENT: hearing changes Cardiovascular: PRESENT: dyspnea on exertion. ABSENT: chest pain, palpitations Genitourinary: PRESENT: as per HPI Neurological: ABSENT: focal weakness Physical Exam Vital Signs: Temp Pulse Resp BP Pulse Ox 98.4 F 108 H 25 H 167/75 H 100 02/28/20 16:01 02/28/20 09:49 02/28/20 16:01 02/28/20 16:01 02/28/20 16:01 Intake & Output 02/27/20 02/28/20 02/29/20 06:59 06:59 06:59 Intake Total 50 Balance 50 Weight 138 kg General appearance: PRESENT: mild distress, obese Eye exam: PRESENT: EOMI, PERRLA Mouth exam: PRESENT: moist Neck exam: PRESENT: full ROM Respiratory exam: PRESENT: clear to auscultation klaudia, symmetrical Cardiovascular exam: PRESENT: RRR, +S1, +S2 Pulses: PRESENT: +2 pedal pulses bilateral GI/Abdominal exam: PRESENT: normal bowel sounds, soft. ABSENT: rebound, tenderness Extremities exam: PRESENT: full ROM Musculoskeletal exam: PRESENT: other - surgically absent left lower extremity Neurological exam: PRESENT: alert, awake, oriented to person, oriented to place, oriented to time, oriented to situation Psychiatric exam: PRESENT: normal mood Skin exam: PRESENT: normal color Results Laboratory Results: 02/28/20 09:42 02/28/20 09:42 02/28/20 02/28/20 02/28/20 09:42 09:42 09:42 WBC 12.5 H RBC 4.00 Hgb 9.9 L Hct 31.4 L MCV 78 L MCH 24.8 L MCHC 31.7 L RDW 17.5 H Plt Count 235 Seg Neutrophils % 73.6 Carbonic Acid 1.23 HCO3/H2CO3 Ratio 16:1 ABG pH 7.33 L ABG pCO2 40.8 ABG pO2 88.2 ABG HCO3 20.8 ABG O2 Saturation 96.1 ABG Base Excess -4.9 FiO2 60% Sodium 142.2 Potassium 4.8 Chloride 112 H Carbon Dioxide 19 L Anion Gap 11 BUN 51 H Creatinine 2.10 H Est GFR ( Amer) 27 L Glucose 234 H Lactic Acid Calcium 9.6 Ferritin Total Bilirubin 0.8 AST 44 H Alkaline Phosphatase 118 C-Reactive Protein Total Protein 8.2 Albumin 3.6 02/28/20 12 09:42 09:42 WBC RBC Hgb Hct MCV MCH MCHC RDW Plt Count Seg Neutrophils % Carbonic Acid HCO3/H2CO3 Ratio ABG pH ABG pCO2 ABG pO2 ABG HCO3 ABG O2 Saturation ABG Base Excess FiO2 Sodium Potassium Chloride Carbon Dioxide Anion Gap BUN Creatinine Est GFR ( Amer) Glucose Lactic Acid 3.1 H Calcium Ferritin 524.00 H Total Bilirubin AST Alkaline Phosphatase C-Reactive Protein < 5.0 Total Protein Albumin 02/28/20 02/28/20 09:42 09:42 Creatine Kinase 57 Troponin I 0.070 NT-Pro-B Natriuret Pep 3980 H Impressions: Chest X-Ray 02/28/20 09:46 IMPRESSION: Cardiomegaly and bilateral basilar predominant pleural and parenchymal opacities. Clinical correlation for signs and symptoms of CHF is recommended. Assessment and Plan - Diagnosis (1) Acute hypoxemic respiratory failure Is this a current diagnosis for this admission?: Yes Plan: - came in due to SOB and desaturation at home 60% per EMS report - improved with BIPAP, she is currently on bipap - hx of CABG quadruple - CXR cardiomegaly and bilateral basilar predominant pleural and parenchymal opacities. -BNP elevated to 3980 -Covid negative -This is likely secondary to pulmonary congestion from CHF -We will start her on Lasix 40 IV twice daily -Continue O2 support with BiPAP (2) NSTEMI (non-ST elevated myocardial infarction) Is this a current diagnosis for this admission?: Yes Plan: - hx of CAD with CABG quadruple 10 years ago - came in due to SOB - EKG new onset LBBB, atrial flutter - troponin 0.07 - Given aspirin 325 - continue lisinopril, carvedilol, statin - echo tomorrow morning - cardio following (3) New onset of congestive heart failure Is this a current diagnosis for this admission?: Yes Plan: - no prior hx of CHF but she has lasix on her med list - Hx of CABG quadruple, HTN, HLD - CXR showed cardiomegaly and bilateral basilar predominant pleural and parenchymal opacities. -BNP 3190 -Troponin 0.07 - EKG a.fib/flutter, LBBB - will trend troponin - started on lasix 40 IV BID - continue lisinopril, carvedilol, statin - echo in the morning - fluid restriction 1.5L - daily weights - strict IO (4) Atrial flutter Qualifiers: Atrial flutter type: unspecified Qualified Code(s): I48.92 - Unspecified atrial flutter Is this a current diagnosis for this admission?: Yes Plan: - new onset - No previous echo to compare - not in RVR HR 88 - Chadsvasc score 6 points - started on lovenox therapeutic - maybe due to CHF exacerbation - TSH ordered - echo pending - cardio following (5) Elevated d-dimer Is this a current diagnosis for this admission?: Yes Plan: - D dimer 3.8 in the setting of SOB - No DVT on doppler - Crea 2.1 precludes CTA and CXR is showing changes consistent with pulm congestion - patient is on therapeutic lovenox (6) Coronary artery disease Qualifiers: Coronary Disease-Associated Artery/Lesion type: kashia artery Is this a current diagnosis for this admission?: Yes Plan: - no chest pain - continue plavix, lisinopril, statin (7) HTN (hypertension) Qualifiers: Hypertension type: essential hypertension Qualified Code(s): I10 - Essential (primary) hypertension Is this a current diagnosis for this admission?: Yes Plan: - continue clonidine and lisinopril (8) HLD (hyperlipidemia) Qualifiers: Hyperlipidemia type: unspecified Qualified Code(s): E78.5 - Hyperlipidemia, unspecified Is this a current diagnosis for this admission?: Yes Plan: - continue lipitor (9) New onset left bundle branch block (LBBB) Is this a current diagnosis for this admission?: Yes Plan: - will trend troponin - continue plavix, lisinopril, carvedilol (10) Type 2 diabetes mellitus 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: 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: with chcf use Diabetes khadrasin keisharonen complication status: with kidney complications Diabetes mellitus comp lication detail: with chronic kidney disease Chronic kidney disease stage: stage 3 (moderate) Is this a current diagnosis for this admission?: Yes Plan: - On lantus 44 u sq daily and lispro 15 u BID - willl check A1C - resumed home dose of insulin - Accucheck ACHS, SSI, hypoglycemia protocol (11) Suspected COVID-19 virus infection Is this a current diagnosis for this admission?: Yes Plan: - COVID negative (12) Chronic renal insufficiency, stage III (moderate) Qualifiers: Chronic kidney disease stage 3 subtype: stage 3b (GFR 30-44) Qualified Code(s): N18.32 - Chronic kidney disease, stage 3b Is this a current diagnosis for this admission?: Yes Plan: - Crea 2.1 which is at baseline will CTM (13) S/P CABG x 4 Is this a current diagnosis for this admission?: Yes Plan: 10 years ago - Time Time Spent with patient: 25-34 minutes Medications reviewed and adjusted accordingly: Yes Anticipated Discharge Disposition: Home with Home Health Anticipated Discharge Timeframe: TBD
[2020-02-28] MEDS: IPRATROPIUM/ALBUTEROL 0.5-2.5 MG/3 ML AMPUL NEB SCH (20:30)
[2020-02-28] MEDS: CARVEDILOL 12.5 MG TABLET PO SCH (22:10)
[2020-02-28] MEDS: CLONIDINE HCL 0.2 MG TABLET PO SCH (22:10)
[2020-02-28] MEDS: ENOXAPARIN SODIUM INJ 150 MG/1 ML DISP.SYRIN SUBCUT SCH (22:10)
[2020-02-28] MEDS: FUROSEMIDE INJ/PF 40 MG/4 ML SDV IV SCH (22:10)
[2020-02-28] MEDS: INSULIN GLARGINE,HUM.REC.ANLOG 1,000 UNIT/10 ML VIAL SUBCUT SCH (22:11)
[2020-02-28] MEDS: ATORVASTATIN CALCIUM 40 MG TABLET PO SCH (22:11)
[2020-02-28] MEDS: AZITHROMYCIN 500 MG in DEXTROSE 5%-WATER 250 ML IV SCH (22:12)
--- NOTE | 2020-02-28 22:36 | XCELERA REPORT ---
[address] [address] Transthoracic Echocardiogram Report Name: CELSO KENNEDY Age: 84 yrs Gender: Female : 1935 Patient Status: Inpatient Patient Location: [address] [place], [place] [address] Study Date: 02/28/2020 08:09 PM Height: 64 in Weight: 304 lb BSA: 2.3 m2 Reason For Study: elevated BNP Ordering Physician: ALEX THOMSON Performed By: Tamika Khan Interpretation Summary IMPRESSION: 1 Moderate to severely depressed with estimated LVEF at approximately 30% 2. Mild LVH noted. 3. Grade II Diastolic Dysfunction noted. 4. Mild mitral, trace aortic regurgitation noted. Aortic valve is calcified with probable mild aortic stenosis/sclerosis. 5. LA is severely dilated. LV mildly dilated. 6. Echocardiogram was technically difficult therefore clinical correlation is requested. FINDINGS: technically difficult. LEFT VENTRICLE: LV Systolic function: LVEF is felt to be moderate to severely depressed estimated at approximately 35% LV Diastolic Function: Grade II diastolic dysfunction noted. Wall motion: not all wall segment were well visualised. Regional wall motion cannot be accurately commented upon However into ventricular septum appears to be mildly dyskinetic, may be related to bundle branch block. Left ventricular chamber size: LV mildly dilated . Left ventricular wall thickness: is increased indicative of Mild LVH. RIGHT VENTRICLE: RV systolic function: is felt to be within normal limit. Right Ventricle Size: is within normal limits. LEFT ATRIUM size: LA is severely dilated. RIGHT ATRIUM size: is within normal limit. INTER ATRIAL SEPTUM: No definite atrial septal defect noted however a small PFO could be missed. AORTIC ROOT: seems to be within normal limits. ASCENDING AORTA: is not well visualized. INFERIOR VENA CAVA: was not well visualized. VALVES: MITRAL VALVE: Leaflets are mildly thickened with mild leaflet and annular calcifications. Mobility seems to be within normal limits. Mitral Regurgitation mild mitral regurgitation is noted. Mitral Stenosis: No mitral stenosis noted. Mitral valve prolapse: none noted. AORTIC VALVE: all leaflets not well visualised but with mild thickening an mildly reduced excursion. Mild calcification noted. Aortic stenosis: No aortic stenosis noted. Aortic regurgitation trace aortic incompetence noted. TRICUSPID VALVE: mobility and structures within normal limit. Tricuspid stenosis: no tricuspid stenosis noted. Tricuspid regurgitation: Trace tricuspid regurgitation noted. Estimated RVS : cannot be accurately commented upon but possibly at upper limit of normal. PULMONARY VALVE: was not well visualized but no significant abnormalities suspected. Pulmonary stenosis: no pulmonary stenosis noted. Pulmonary regurgitation: no significant pulmonary regurgitation noted. MASSES AND THROMBUS: No definite intracardiac thrombus or masses are noted. PERICARDIUM: No pericardial effusion was noted. MMode/2D Measurements & Calculations RVDd: 3.9 cm LVIDd: 6.1 cm FS: 7.3 % Ao root diam: 3.0 cm IVSd: 1.4 cm LVIDs: 5.7 cm EDV(Teich): 188.2 ml LVPWd: 1.4 cm ESV(Teich): 158.1 ml Ao root area: 7.1 cm2 LA dimension: 6.0 cm EF(Teich): 16.0 % Doppler Measurements & Calculations MV E max silvia: MV P1/2t max silvia: Ao V2 max: LV V1 max P.2 cm/sec 69.5 cm/sec 166.8 cm/sec 3.9 mmHg MV A max silvia: MV P1/2t: 47.2 msec Ao max PG: LV V1 max: 105.2 cm/sec MVA(P1/2t): 4.7 cm2 11.1 mmHg 99.3 cm/sec MV E/A: 0.82 MV dec slope: 431.4 cm/sec2 MV dec time: 0.31 sec PA V2 max: PI end-d silvia: MV P1/2t-pr_phl: 165.4 cm/sec 172.4 cm/sec 47.2 msec PA max P.9 mmHg : ALEX THOMSON Shyamal
[2020-02-29] MEDS: CLONIDINE HCL 0.2 MG TABLET PO SCH ×4 (06:50→21:39)
[2020-02-29] MEDS: NIFEDIPINE 30 MG TAB.ER.24 PO SCH (06:50)
[2020-02-29 07:22] LABS: ABSOLUTE LYMPHOCYTES (AUTO) 1.5 10^3/uL (0.5-4.7); ABSOLUTE MONOCYTES (AUTO) 0.9 10^3/uL (0.1-1.4); ABSOLUTE NEUT (AUTO) 8.2 10^3/uL (1.7-8.2); BASOPHILS % (AUTO) 0.2 % (0-2); HEMATOCRIT 33.5 % (36.0-47.0); HEMOGLOBIN 10.8 g/dL (12.0-15.5); LYMPHOCYTES % (AUTO) 13.8 % (13-45); MEAN CORPUSCULAR HEMOGLOBIN 25.4 pg (27.0-33.4); MEAN CORPUSCULAR HGB CONC 32.1 g/dL (32.0-36.0); MEAN CORPUSCULAR VOLUME 79 fl (80-97); MONOCYTES % (AUTO) 8.6 % (3-13); PLATELET COUNT 173 10^3/uL (150-450); RED BLOOD COUNT 4.24 10^6/uL (3.72-5.28); RED CELL DISTRIBUTION WIDTH 17.7 % (11.5-14.0); SEGMENTED NEUTROPHILS % (AUTO) 77.4 % (42-78); TOTAL CELLS COUNTED % (AUTO) 100 %; WHITE BLOOD COUNT 10.5 10^3/uL (4.0-10.5)
--- NOTE | 2020-02-29 08:11 | PDOC CONSULTATION ---
Consultation Consult Date: 02/29/20 Attending physician:: ALEX THOMSON Provider Consulted: MICHELLE OCHOA Consult reason:: CHF History of Present Illness Admission Date/PCP: 02/28/20 14:39 MIQUEL DESOUZA MD History of Present Illness: CELSO KENNEDY is a 84 year old female with history of chronic renal insufficiency, coronary artery disease status post four-vessel CABG in 2004 with JACOBO to the LAD, sequential SVG to the ramus and OM 2 and SVG to the PDA, ca rdiomyopathy, peripheral vascular disease status post left lower leg amputation, carotid artery disease, malignant hypertension and heart failure who is consulted to our service for evaluation of heart failure. The patient was apparently in her usual state of health until 02/27/2020 when she began with shortness of breath. Her symptoms progressed to the point EMS was called. The patient was found to be lethargic with a pulse oximetry of 52% at which point CPAP was initiated with oxygen saturation responded to 90% and eventually was changed to BiPAP in our emergency room with significant improvement in her symptoms, it was noted that she was in atrial fibrillation. She had an uneventful night. She feels slightly better and denies ischemic symptoms. Her telemetry shows atrial fibrillation with a controlled ventricular rate. Physical exam on 02/29/2020: GENERAL: Sitting up in bed, on BiPAP. Pleasant and conversational. Oriented x3 with normal mood. Not in acute distress. Disheveled. Obese. HEENT: Normocephalic, atraumatic. Pupils equal. Sclerae anicteric. Oropharynx moist. NECK: Difficult to evaluate for JVD given her body habitus. LUNGS: Coarse breath sounds bilaterally. On BiPAP. CARDIOVASCULAR: Irregularly irregular rate and rhythm, no murmurs, rubs, or gallops. PMI not displaced. ABDOMEN: No masses or tenderness to palpation. No bruit. No splenomegaly or hepatomegaly. No abdominal aorta bruit noted. EXTREMITIES: Trace pitting edema on the right, left lower extremity is amputated. SKIN: No lesions or rashes. MUSCULOSKELETAL: No chest tenderness to palpation. NEUROLOGIC: Nonfocal. No gross sensory or motor deficits bilateral upper or lower extremities. Cardiac studies: Echocardiogram on 02/28/2020 at [facility]: -Severely depressed LV systolic function. -EF 35%. -Grade 2 diastolic dysfunction. -Cannot evaluate regional wall motion normalities. -Mild LV dilatation. -Mild concentric LVH. -Mild MR, trace AI, trace TR. Echocardiogram on 07/29/2014 at [facility]: -EF 50 to 55%. -Grade 1 diastolic dysfunction. -Mild concentric LVH. -Septal motion consistent with conduction abnormality. -Unable to assess for regional wall motion abnormalities. -Mild LAE. -Trace MR, trace TR, trace AI, trace PI. -Mild pulmonary hypertension. 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 Social History Lives with: Family Smoking Status: Never Smoker - Advance Directive Resuscitation Status: Full Code Family History Family History: Reviewed & Not Pertinent Parental Family History Reviewed: Yes Children Family History Reviewed: Yes Sibling(s) Family History Reviewed.: Yes Medication/Allergy Home Medications: Atorvastatin Calcium [Lipitor 40 mg Tablet] 40 mg PO QHS 02/28/20 Carvedilol 25 mg PO BID 02/28/20 Clonidine HCl [Catapres 0.2 mg Tablet] 0.2 mg PO Q8 02/28/20 Clopidogrel Bisulfate [Plavix 75 mg Tablet] 75 mg PO DAILY 02/28/20 Insulin Glargine,Hum.rec.anlog [Lantus Insulin 100 Unit/mL Insulin Pen] 44 units SQ DAILY 02/28/20 Insulin Lispro [Humalog Kwikpen] 15 unit SQ BID 02/28/20 Lisinopril [Zestril] 40 mg PO DAILY 02/28/20 Nifedipine [Nifedipine ER] 30 mg PO BID 02/28/20 Paricalcitol [Zemplar 1 Mcg Capsule] 1 mcg PO DAILY 02/28/20 Sodium Bicarbonate [Sodium Bicarbonate 650 mg Tablet] 650 mg PO BID 02/28/20 Allergies/Adverse Reactions: Penicillins Allergy (Verified 02/28/20 09:49) Physical Exam Vital Signs: Temp Pulse Resp BP Pulse Ox 98.4 F 69 14 134/51 H 100 02/29/20 03:32 02/29/20 03:32 02/29/20 04:39 02/29/20 03:32 02/29/20 04:39 Intake & Output 02/27/20 02/28/20 02/29/20 06:59 06:59 06:59 Intake Total 550 Balance 550 Weight 138 kg Results Laboratory Results: 02/28/20 09:42 02/28/20 09:42 02/28/20 02/28/20 02/28/20 09:42 09:42 09:42 WBC 12.5 H RBC 4.00 Hgb 9.9 L Hct 31.4 L MCV 78 L MCH 24.8 L MCHC 31.7 L RDW 17.5 H Plt Count 235 Seg Neutrophils % 73.6 Carbonic Acid 1.23 HCO3/H2CO3 Ratio 16:1 ABG pH 7.33 L ABG pCO2 40.8 ABG pO2 88.2 ABG HCO3 20.8 ABG O2 Saturation 96.1 ABG Base Excess -4.9 FiO2 60% Sodium 142.2 Potassium 4.8 Chloride 112 H Carbon Dioxide 19 L Anion Gap 11 BUN 51 H Creatinine 2.10 H Est GFR ( Amer) 27 L Glucose 234 H Lactic Acid Calcium 9.6 Ferritin Total Bilirubin 0.8 AST 44 H Alkaline Phosphatase 118 C-Reactive Protein Total Protein 8.2 Albumin 3.6 TSH 02/28/20 02/28/20 02/28/20 09:42 09:42 18:24 WBC RBC Hgb Hct MCV MCH MCHC RDW Plt Count Seg Neutrophils % Carbonic Acid HCO3/H2CO3 Ratio ABG pH ABG pCO2 ABG pO2 ABG HCO3 ABG O2 Saturation ABG Base Excess FiO2 Sodium Potassium Chloride Carbon Dioxide Anion Gap BUN Creatinine Est GFR ( Amer) Glucose Lactic Acid 3.1 H Calcium Ferritin 524.00 H Total Bilirubin AST Alkaline Phosphatase C-Reactive Protein < 5.0 Total Protein Albumin TSH 0.41 L 02/28/20 02/28/20 02/28/20 09:42 09:42 18:24 Creatine Kinase 57 Troponin I 0.070 1.860 NT-Pro-B Natriuret Pep 3980 H 02/29/20 00:50 Creatine Kinase Troponin I 2.100 NT-Pro-B Natriuret Pep Impressions: Venous Doppler Study 02/28/20 00:00 IMPRESSION: NO EVIDENCE DVT OR SVT IN THE RIGHT LEG. Chest X-Ray 02/28/20 09:46 IMPRESSION: Cardiomegaly and bilateral basilar predominant pleural and parenchymal opacities. Clinical correlation for signs and symptoms of CHF is recommended. 02/28/20 09:42 02/28/20 09:42 MCV 78 fl (80-97) L 12 09:42 MCH 24.8 pg (27.0-33.4) L 02/28/20 09:42 MCHC 31.7 g/dL (32.0-36.0) L 02/28/20 09:42 RDW 17.5 % (11.5-14.0) H 02/28/20 09:42 Seg Neutrophils % 73.6 % (42-78) 02/28/20 09:42 Carbonic Acid 1.23 mmol/L (1.05-1.35) 12 09:42 HCO3/H2CO3 Ratio 16:1 02/28/20 09:42 ABG pH 7.33 (7.35-7.45) L 02/28/20 09:42 ABG pCO2 40.8 mmHg (35-45) 02/28/20 09:42 ABG pO2 88.2 mmHg (80-100) 02/28/20 09:42 ABG HCO3 20.8 mmol/L (20-24) 02/28/20 09:42 ABG O2 Saturation 96.1 % (94-98) 12 09:42 ABG Base Excess -4.9 mmol/L 02/28/20 09:42 FiO2 60% 02/28/20 09:42 Chloride 112 mmol/L (98-107) H 02/28/20 09:42 Carbon Dioxide 19 mmol/L (22-30) L 02/28/20 09:42 Anion Gap 11 (5-19) 02/28/20 09:42 Est GFR ( Amer) 27 (>60) L 02/28/20 09:42 Glucose 234 mg/dL (75-110) H 02/28/20 09:42 Lactic Acid 3.1 mmol/L (0.7-2.1) H 02/28/20 09:42 Calcium 9.6 mg/dL (8.4-10.2) 02/28/20 09:42 Ferritin 524.00 ng/mL (11.1-264.0) H 02/28/20 09:42 Total Bilirubin 0.8 mg/dL (0.2-1.3) 02/28/20 09:42 AST 44 U/L (14-36) H 02/28/20 09:42 Alkaline Phosphatase 118 U/L (38-126) 02/28/20 09:42 C-Reactive Protein < 5.0 mg/L (<10.0) 02/28/20 09:42 Total Protein 8.2 g/dL (6.3-8.2) 02/28/20 09:42 Albumin 3.6 g/dL (3.5-5.0) 02/28/20 09:42 TSH 0.41 uIU/mL (0.47-4.68) L 02/28/20 18:24 02/28/20 02/28/20 02/28/20 09:42 09:42 18:24 Creatine Kinase 57 Troponin I 0.070 1.860 NT-Pro-B Natriuret Pep 3980 H 02/29/20 00:50 Creatine Kinase Troponin I 2.100 NT-Pro-B Natriuret Pep Current Medication List Generic Name Dose Route Start Last Admin Trade Name Freq PRN Reason Stop Dose Admin Acetaminophen 650 mg 02/28/20 14:03 Acetaminophen 325 Mg Tablet PO 03/29/20 14:02 Q4HP PRN FEVER >101 Albuterol/Ipratropium 3 ml 02/28/20 20:00 02/28/20 20:30 Ipratropium/Albuterol 0.5-2.5 Mg/3 Ml Ampul NEB 03/29/20 19:59 3 ml [id number] MARILY Administration Atorvastatin Calcium 40 mg 02/28/20 22:00 02/28/20 22:11 Atorvastatin Calcium 40 Mg Tablet PO 03/29/20 21:59 40 mg QHS MARILY Administration Carvedilol 25 mg 02/28/20 22:00 02/28/20 22:10 Carvedilol 12.5 Mg Tablet PO 03/29/20 21:59 25 mg Q12 MARILY Administration Clonidine 0.2 mg 02/28/20 22:00 02/28/20 22:10 Clonidine Hcl 0.2 Mg Tablet PO 03/29/20 21:59 0.2 mg Q8 MARILY Administration Clopidogrel Bisulfate 75 mg 02/29/20 10:00 Clopidogrel Bisulfate 75 Mg Tablet PO 03/30/20 09:59 DAILY MARILY Dextrose 12.5 gm 02/28/20 14:15 Dextrose 50%-Water 25 Gm/50 Ml Disp.Syrin IV 03/29/20 14:14 PRN PRN FOR BG 50-69 IN ALERT PATIENT Protocol Dextrose 25 gm 02/28/20 14:15 Dextrose 50%-Water 25 Gm/50 Ml Disp.Syrin IV 03/29/20 14:14 PRN PRN PER PROTOCOL Protocol Enoxaparin Sodium 140 mg 02/28/20 22:00 02/28/20 22:10 Enoxaparin Sodium Inj 150 Mg/1 Ml Disp.Syrin SUBCUT 03/29/20 21:59 140 mg Q12 MARILY Administration Furosemide 40 mg 02/28/20 22:00 02/28/20 22:10 Furosemide Inj/Pf 40 Mg/4 Ml Sdv IV 03/29/20 21:59 40 mg Q12 MARILY Administration Glucagon 1 mg 02/28/20 14:15 Glucagon,Human Recomb 1 Mg Inj IM 03/29/20 14:14 PRN PRN Evaluate for BG < 70 Protocol Glucose 15 gm 02/28/20 14:15 Dextrose 40% Gel 15 Gm Tube PO 03/29/20 14:14 PRN PRN FOR BG 50-69 IN ALERT PATIENT Protocol Glucose 30 gm 02/28/20 14:15 Dextrose 40% Gel 15 Gm Tube PO 03/29/20 14:14 PRN PRN FOR BG < 50 IN ALERT PATIENT Protocol Ceftriaxone Sodium/Dextrose 2 gm in 50 mls @ 100 mls/hr 02/28/20 16:30 02/28/20 16:42 Rocephin Rtu 2 Gm/D5w 50 Ml Premix Bag IV 03/06/20 16:29 Infused QPM MARILY Infusion Azithromycin 500 mg/ Dextrose 250 mls @ 250 mls/hr 02/28/20 22:00 02/28/20 23:12 IV 03/06/20 21:59 Infused QHS MARILY Infusion Insulin Glargine 44 unit 02/28/20 22:00 02/28/20 22:11 Insulin Glargine,Hum.Rec.Anlog 1,000 Unit/10 Ml Vial SUBCUT 03/29/20 21:59 44 unit QHS MARILY Administration Insulin Human Lispro 0 - 12 unit 02/28/20 16:00 02/28/20 22:11 Insulin Lispro 100 Unit/Ml 3 Ml Vial SUBCUT 03/29/20 15:59 4 unit ACHS MARILY Administration Protocol Insulin Human Lispro 15 unit 02/28/20 17:00 02/28/20 17:54 Insulin Lispro 100 Unit/Ml 3 Ml Vial SUBCUT 03/29/20 16:59 15 unit BIDACBS MARILY Administration Lisinopril 40 mg 02/29/20 10:00 Lisinopril 10 Mg Tablet PO 03/30/20 09:59 DAILY MARILY Nifedipine 30 mg 02/28/20 18:00 02/28/20 17:54 Nifedipine 30 Mg Tab.Er.24 PO 03/29/20 17:59 30 mg Q12A MARILY Administration Ondansetron HCl 4 mg 02/28/20 14:03 Ondansetron Hcl Inj/Pf 4 Mg/2 Ml Sdv IV 03/29/20 14:02 Q6HP PRN FOR NAUSEA/VOMITING Patient Own Medication 1 mcg 02/29/20 10:00 Paricalcitol [Zemplar 1 Mcg Capsule] PO 03/30/20 09:59 .DAILY MARILY Sodium Bicarbonate 650 mg 02/28/20 18:00 02/28/20 17:54 Sodium Bicarbonate 650 Mg Tablet PO 03/29/20 17:59 650 mg BID MARILY Administration Discontinued Medications Generic Name Dose Route Start Last Admin Trade Name Freq PRN Reason Stop Dose Admin Ascorbic Acid 500 mg 02/28/20 18:00 02/28/20 17:54 Ascorbic Acid 500 Mg Tablet PO 03/29/20 17:59 500 mg BID MARILY Administration Aspirin 324 mg 02/28/20 18:45 02/28/20 19:24 Aspirin 81 Mg Tablet, Chewable PO 02/28/20 18:46 324 mg NOW ONE Administration Azithromycin 500 mg 02/28/20 16:00 Azithromycin Inj 500 Mg Vial IV 03/06/20 15:59 DAILY [facility] Dexamethasone Sodium Phosphate 6 mg 02/29/20 10:00 Dexamethasone Sod Phos Inj 10 Mg/1 Ml Vial IV 03/30/20 09:59 DAILY [facility] Enoxaparin Sodium 30 mg 02/29/20 10:00 Enoxaparin Sodium Inj 30 Mg/0.3 Ml Disp.Syrin SUBCUT 03/30/20 09:59 DAILY MARILY Furosemide 40 mg 02/28/20 15:00 02/28/20 15:21 Furosemide Inj/Pf 40 Mg/4 Ml Sdv IV 02/28/20 15:01 40 mg NOW ONE Administration Zinc Sulfate 220 mg 02/28/20 15:00 02/28/20 15:23 Zinc Sulfate 220 Mg Capsule PO 02/28/20 15:01 220 mg NOW ONE Administration Assessment & Plan - Diagnosis (1) NSTEMI (non-ST elevated myocardial infarction) Is this a current diagnosis for this admission?: Yes Plan: The patient presented to our emergency room in heart failure and atrial fibrillation with a troponin that continues to rise and is currently at around 2. Unfortunately her echocardiogram yesterday was technically difficult therefore no regional wall motion assessment could be made however her ejection fraction is depressed at 35%. She is currently free of ischemic symptoms and is essentially on GDMT except for a baby aspirin. I discussed with her this mor gallo invasive assessment with left heart catheterization versus medical management, the patient opted for medical management at this point. The case was discussed with Dr. Thomson, hospitalist, this morning. Recommendations: -Add baby aspirin. -Continue with full anticoagulation with Lovenox. -Medical management as chosen by the patient. -Continue to trend troponins. -We will continue to follow with you. (2) Heart failure with reduced ejection fraction Is this a current diagnosis for this admission?: Yes Plan: The patient is currently mildly fluid overloaded. She is already on GDMT. Unfortunately her urinary output has not been recorded. Recommendations: -Continue diuresis with Lasix 40 mg IV twice daily. -Start baby aspirin. -Discontinue sodium bicarbonate given the sodium load of the medication and the patient's heart failure. -Restrict fluid intake to 1500 cc daily. -Low sodium diet, less than 1500 mg daily. -Strict intake and output. -Daily weights. -Daily BMP/magnesium and replace electrolytes as needed. (3) HTN (hypertension) Qualifiers: Hypertension type: essential hypertension Qualified Code(s): I10 - Essential (primary) hypertension Is this a current diagnosis for this admission?: Yes Plan: The patient has a history of malignant hypertension. She is on a very complic ated regimen including Procardia twice daily, clonidine every 8 hours, Coreg and lisinopril. I believe her sodium bicarbonate tablets which she takes twice a day may also be contributing to her hypertension given the sodium load of the tablet. Her blood pressure this morning is very close to her goal. My plan is to simplify her antihypertensive regimen and, given her systolic dysfunction and acute heart failure, Procardia will be discontinued first. Recommendations: -Discontinue Procardia. -Discontinue sodium bicarbonate tablets. -Low-sodium diet. -Fluid restriction as above. (4) Coronary artery disease Qualifiers: Coronary Disease-Associated Artery/Lesion type: bypass graft Is this a current diagnosis for this admission?: Yes Plan: Please see #1 above for recommendations. (5) Atrial fibrillation Qualifiers: Atrial fibrillation type: unspecified Qualified Code(s): I48.91 - Unspecified atrial fibrillation Plan: This is apparently her first episode of her atrial fibrillation. She is fully anticoagulated at this point. Her heart rate is well controlled. Recommendations: -Continue with current management.
[2020-02-29] MEDS: IPRATROPIUM/ALBUTEROL 0.5-2.5 MG/3 ML AMPUL NEB SCH ×3 (08:13→20:01)
[2020-02-29 09:06] LABS: ALBUMIN 3.2 g/dL (3.5-5.0); ALKALINE PHOSPHATASE 80 U/L (38-126); ANION GAP 10 (5-19); ASPARTATE AMINO TRANSFERASE 36 U/L (14-36); BILIRUBIN,DIRECT 0.2 mg/dL (0.0-0.4); BILIRUBIN,TOTAL 0.7 mg/dL (0.2-1.3); BLOOD UREA NITROGEN 63 mg/dL (7-20); CALCIUM 9.7 mg/dL (8.4-10.2); CARBON DIOXIDE 21 mmol/L (22-30); CHLORIDE 110 mmol/L (98-107); CHOLESTEROL 126.76 mg/dL (0-200); GLUCOSE 222 mg/dL (75-110); TOTAL PROTEIN 7.6 g/dL (6.3-8.2); TRIGLYCERIDES 109 mg/dL (<150)
[2020-02-29 09:17] LABS: DIRECT LDL 49 mg/dL (<100)
[2020-02-29] MEDS: LISINOPRIL 10 MG TABLET PO SCH (09:28)
[2020-02-29] MEDS: CLOPIDOGREL BISULFATE 75 MG TABLET PO SCH (09:28)
[2020-02-29] MEDS: CARVEDILOL 12.5 MG TABLET PO SCH ×2 (09:29→21:37)
[2020-02-29] MEDS: FUROSEMIDE INJ/PF 40 MG/4 ML SDV IV SCH (09:29)
[2020-02-29] MEDS: INSULIN LISPRO 100 UNIT/ML 3 ML VIAL SUBCUT SCH ×6 (09:29→21:37)
[2020-02-29] MEDS: ENOXAPARIN SODIUM INJ 150 MG/1 ML DISP.SYRIN SUBCUT SCH ×2 (09:35→21:50)
[2020-02-29] MEDS ORDERED: FUROSEMIDE INJ/PF 40 MG/4 ML SDV IV SCH (10:00)
[2020-02-29] MEDS ORDERED: ENOXAPARIN SODIUM INJ 40 MG/0.4 ML DISP.SYRIN SUBCUT SCH (10:00)
[2020-02-29] MEDS ORDERED: (PENDING PHARMACY ID) (Lisinopril [Zestril] 40 MG Tablet) PO SCH (10:00)
[2020-02-29] MEDS ORDERED: ENOXAPARIN SODIUM INJ 30 MG/0.3 ML DISP.SYRIN SUBCUT SCH (10:00)
[2020-02-29] MEDS ORDERED: PARICALCITOL 1 MCG PO SCH (10:00)
[2020-02-29] MEDS ORDERED: DEXAMETHASONE SOD PHOS INJ 10 MG/1 ML VIAL IV SCH (10:00)
[2020-02-29] MEDS ORDERED: FUROSEMIDE INJ/PF 40 MG/4 ML SDV IV ONE (10:00)
--- NOTE | 2020-02-29 12:42 | PDOC PROGRESS REPORT ---
Subjective Date:: 02/29/20 Subjective:: CELSO KENNEDY is a 84 year old female, PMH of Type 2 DM, HTN, HLD, Quadruple b ypass who came in the ED due to shortness of breath. The patient was apparently feeling well yesterday morning then last night she noted SOB, which persisted until this morning. She denied any fever, cough, or chest pain, no palpitations. EMS was called and it was noted that her O2 sat was 60% , she was started on CPAP by EMS. In the ED her sats were noted to be low 80s on CPAP hence she was put on BIpap 100% FIO2 and her marily improved to 99%. BP in the ED was 145/59, HR 108, RR 25. CBC showed WBC 12.5, Hgb 9.9, plt 235. CMP showed normal sodium and potassium. crea 2.1 which is close to her baseline. CXR showed cardiomegaly and bibasilar opacities. BNP 3980. Rapid COVID negative. Hospitalist service called for further management. D2 Hospital stay. Patient was seen and examined at bedside. She was taken off bipap this morning but she was struggling to breath so she was put back on bipap. Troponin peaked at 2.1 and eventually trended down to 1.4. She did not complain of any chest pain. I was able to speak to Dr. rAcos who recommended to stop Sodium bicarb for now because of the high solute load from sodium and also to discontinue nifedipine due to acute HF. Her echo showed an EF of 30%, still in a.fib. She will likely need a cath in the near future and she would ahve to be transferred for this but for now the patient wants to do medical management. Her daughter Cydney was in the room during this discussion and all their questions were answered to the best of my abilities. Reason For Visit: BILATERIAL PNEUMONIA, HYPOXEMIA, ATRIAL FLUTTER, Physical Exam Vital Signs: Temp Pulse Resp BP Pulse Ox 98.2 F 73 27 H 139/51 H 90 L 02/29/20 11:35 02/29/20 11:35 02/29/20 12:01 02/29/20 11:35 02/29/20 12:01 Intake & Output 02/28/20 02/29/20 03/01/20 06:59 06:59 06:59 Intake Total 850 Output Total 175 Balance 675 Weight 137.9 kg General appearance: PRESENT: cooperative, mild distress, obese Head exam: PRESENT: atraumatic, normocephalic Eye exam: PRESENT: EOMI, PERRLA Mouth exam: PRESENT: moist Neck exam: PRESENT: full ROM Respiratory exam: PRESENT: crackles, rales, symmetrical, tachypnea Cardiovascular exam: PRESENT: RRR, +S1, +S2 Pulses: PRESENT: +2 pedal pulses bilateral Vascular exam: PRESENT: normal capillary refill GI/Abdominal exam: PRESENT: normal bowel sounds, soft. ABSENT: rebound, tenderness Extremities exam: PRESENT: full ROM Musculoskeletal exam: PRESENT: full ROM Neurological exam: PRESENT: alert, awake, oriented to person, oriented to place, oriented to time, oriented to situation Psychiatric exam: PRESENT: normal mood Skin exam: PRESENT: normal color Results Laboratory Results: 02/29/20 07:01 02/29/20 08:39 02/28/20 02/29/20 02/29/20 18:24 07:01 07:01 WBC 10.5 RBC 4.24 Hgb 10.8 L Hct 33.5 L MCV 79 L MCH 25.4 L MCHC 32.1 RDW 17.7 H Plt Count 173 Seg Neutrophils % 77.4 Sodium Cancelled Potassium Cancelled Chloride Cancelled Carbon Dioxide Cancelled Anion Gap Cancelled BUN Cancelled Creatinine Cancelled Est GFR ( Amer) Cancelled Est GFR (Non-Af Amer) Cancelled Glucose Cancelled Calcium Cancelled Total Bilirubin Cancelled AST Cancelled Alkaline Phosphatase Cancelled Total Protein Cancelled Albumin Cancelled Triglycerides Cancelled Cholesterol Cancelled LDL Cholesterol Direct Cancelled VLDL Cholesterol Cancelled HDL Cholesterol Cancelled TSH 0.41 L 02/29/20 08:39 WBC RBC Hgb Hct MCV MCH MCHC RDW Plt Count Seg Neutrophils % Sodium 140.9 Potassium 5.0 Chloride 110 H Carbon Dioxide 21 L Anion Gap 10 BUN 63 H Creatinine 2.36 H Est GFR ( Amer) 24 L Est GFR (Non-Af Amer) Glucose 222 H Calcium 9.7 Total Bilirubin 0.7 AST 36 Alkaline Phosphatase 80 Total Protein 7.6 Albumin 3.2 L Triglycerides 109 Cholesterol 126.76 LDL Cholesterol Direct 49 VLDL Cholesterol 22.0 HDL Cholesterol 42 TSH 02/28/20 09:42 Blood Blood Culture (PCR) - Final Staphylococcus Species 02/28/20 10:49 Blood Blood Culture (PCR) - Final Staphylococcus Species 02/28/20 02/28/20 02/28/20 09:42 09:42 18:24 Creatine Kinase 57 Troponin I 0.070 1.860 NT-Pro-B Natriuret Pep 3980 H 02/29/20 02/29/20 02/29/20 00:50 07:01 08:39 Creatine Kinase Troponin I 2.100 Cancelled 1.470 NT-Pro-B Natriuret Pep Impressions: Venous Doppler Study 02/28/20 00:00 IMPRESSION: NO EVIDENCE DVT OR SVT IN THE RIGHT LEG. Chest X-Ray 02/28/20 09:46 IMPRESSION: Cardiomegaly and bilateral basilar predominant pleural and parenchymal opacities. Clinical correlation for signs and symptoms of CHF is recommended. Assessment and Plan - Diagnosis (1) Acute hypoxemic respiratory failure Is this a current diagnosis for this admission?: Yes Plan: - came in due to SOB and desaturation at home 60% per EMS report - improved with BIPAP, she is currently on bipap - hx of CABG quadruple - CXR cardiomegaly and bilateral basilar predominant pleural and parenchymal opacities. -BNP elevated to 3980 -Covid negative -This is likely secondary to pulmonary congestion from CHF -lasix increased to 80 BID -Continue O2 support with BiPAP (2) NSTEMI (non-ST elevated myocardial infarction) Is this a current diagnosis for this admission?: Yes Plan: - hx of CAD with CABG quadruple 10 years ago - came in due to SOB - EKG new onset LBBB, atrial flutter - troponin 0.07>1.8>2.1>1.47 - Given aspirin 325 - continue lisinopril, carvedilol, statin - echo showed moderate to severely depressed systolic function with LVEF approximately 30%. Grade 2 diastolic dysfunction. LA is severely dilated. - will most likely need ischemic work up in the near future. For now the patient wants medical management - cardio following. recommended to stop Sodium bicarb due to high sodium content, discontinue nifedipine due to acute HF. Meds discontinued (3) New onset of congestive heart failure Is this a current diagnosis for this admission?: Yes Plan: - no prior hx of CHF but she has lasix on her med list - Hx of CABG quadruple, HTN, HLD - CXR showed cardiomegaly and bilateral basilar predominant pleural and parenchymal opacities. -BNP 3190 -Troponin 0.07>1.8>2.1>1.47 - EKG a.fib/flutter, LBBB - increased lasix 80 IV BID - continue lisinopril, carvedilol, statin - echo showed EF 50%, moderate to severely depressed systolic function Grade 2 diastolic dysfunction. LA is severely dilated. - per cardio recs recommend to stop Sodium bicarb and Nifedipine - will discuss with cardio possible life vest needs with depressed EF. - fluid restriction 1.5L - daily weights - strict IO (4) Atrial flutter Qualifiers: Atrial flutter type: unspecified Qualified Code(s): I48.92 - Unspecified atrial flutter Is this a current diagnosis for this admission?: Yes Plan: - new onset - No previous EKG to compare - not in RVR HR 88 - Chadsvasc score 6 points - started on lovenox therapeutic - maybe due to CHF exacerbation - TSH 0.4 midlly decREASED. Will order FT4 and T3 - echo as described above - cardio following (5) Elevated d-dimer Is this a current diagnosis for this admission?: Yes Plan: - D dimer 3.8 in the setting of SOB - No DVT on doppler - Crea 2.1 precludes CTA and CXR is showing changes consistent with pulm congestion - patient is on therapeutic lovenox (6) Coronary artery disease Qualifiers: Coronary Disease-Associated Artery/Lesion type: bypass graft Is this a current diagnosis for this admission?: Yes Plan: - no chest pain - continue plavix, lisinopril, statin (7) HTN (hypertension) Qualifiers: Hypertension type: essential hypertension Qualified Code(s): I10 - Essential (primary) hypertension Is this a current diagnosis for this admission?: Yes Plan: - continue clonidine and lisinopril - nifedipine stopped (8) HLD (hyperlipidemia) Qualifiers: Hyperlipidemia type: unspecified Qualified Code(s): E78.5 - Hyperlipidemia, unspecified Is this a current diagnosis for this admission?: Yes Plan: - continue lipitor (9) New onset left bundle branch block (LBBB) Is this a current diagnosis for this admission?: Yes Plan: - continue plavix, lisinopril, carvedilol (10) Type 2 diabetes mellitus Qualifiers: Diabetes mellitus 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 Diabetes mellitus complication status: with kidney complications Diabetes mellitus complication detail: with chronic kidney disease Chronic kidney disease stage: stage 3 (moderate) Is this a current diagnosis for this admission?: Yes Plan: - On lantus 44 u sq daily and lispro 15 u BID - willl check A1C - resumed home dose of insulin - Accucheck ACHS, SSI, hypoglycemia protocol (11) Suspected COVID-19 virus infection Is this a current diagnosis for this admission?: Yes Plan: - COVID negative (12) Chronic renal insufficiency, stage III (moderate) Qualifiers: Chronic kidney disease stage 3 subtype: stage 3b (GFR 30-44) Qualified Code(s): N18.32 - Chronic kidney disease, stage 3b Is this a current diagnosis for this admission?: Yes Plan: - Crea 2.1>2.36 which is at baseline will continue to monitor as we are diuresing her - Sodium bicarb stopped due to high solute load from sodium which may aggravate HF (13) S/P CABG x 4 Is this a current diagnosis for this admission?: Yes Plan: 10 years ago - Time Time Spent with patient: 25-34 minutes Medications reviewed and adjusted accordingly: Yes Anticipated Discharge Disposition: Home with Home Health Anticipated Discharge Timeframe: tbd
[2020-02-29 13:52] LABS: FREE T3 2.16 pg/mL (2.77-5.27); FREE T4 (FREE THYROXINE) 1.35 ng/dL (0.78-2.19)
--- NOTE | 2020-02-29 15:00 | EKG REPORT ---
SEVERITY:- ABNORMAL ECG - SINUS RHYTHM FIRST DEGREE AV BLOCK LEFT BUNDLE BRANCH BLOCK : Confirmed by: Brigido Stratton 29-Feb-2020 14:58:58
[2020-02-29] MEDS: CEFTRIAXONE 2 GM/D5W RTU 2 GM/50 ML RTUPB IV SCH (17:27)
[2020-02-29] MEDS: ATORVASTATIN CALCIUM 40 MG TABLET PO SCH (21:36)
[2020-02-29] MEDS: MELATONIN 5 MG TABLET PO SCH (21:36)
[2020-02-29] MEDS: INSULIN GLARGINE,HUM.REC.ANLOG 1,000 UNIT/10 ML VIAL SUBCUT SCH (21:38)
[2020-02-29] MEDS: AZITHROMYCIN 500 MG in DEXTROSE 5%-WATER 250 ML IV SCH (21:41)
[2020-02-29] MEDS ORDERED: FUROSEMIDE INJ/PF 100 MG/10 ML SDV IV SCH (22:00)
[2020-03-01 04:59] LABS: APPEARANCE,URINE SLIGHTLY-CLOUDY; BILIRUBIN,URINE NEGATIVE (NEGATIVE); COLOR,URINE YELLOW; GLUCOSE, URINE NEGATIVE (NEGATIVE); KETONES,URINE NEGATIVE (NEGATIVE); LEUKOCYTE ESTERASE,URINE LARGE (NEGATIVE); NITRITE,URINE NEGATIVE (NEGATIVE); PROTEIN,URINE NEGATIVE (NEGATIVE); URINE SPECIFIC GRAVITY 1.013; UROBILINOGEN,URINE NEGATIVE mg/dL (<2.0)
[2020-03-01] MEDS: CLONIDINE HCL 0.2 MG TABLET PO SCH ×3 (05:16→22:17)
[2020-03-01 05:45] LABS: ABSOLUTE LYMPHOCYTES (AUTO) 1.6 10^3/uL (0.5-4.7); ABSOLUTE MONOCYTES (AUTO) 0.6 10^3/uL (0.1-1.4); ABSOLUTE NEUT (AUTO) 7.9 10^3/uL (1.7-8.2); BASOPHILS % (AUTO) 0.4 % (0-2); EOSINOPHILS % (AUTO) 0.2 % (0-6); HEMATOCRIT 26.5 % (36.0-47.0); LYMPHOCYTES % (AUTO) 15.9 % (13-45); MEAN CORPUSCULAR HEMOGLOBIN 25.4 pg (27.0-33.4); MEAN CORPUSCULAR HGB CONC 32.8 g/dL (32.0-36.0); MEAN CORPUSCULAR VOLUME 77 fl (80-97); MONOCYTES % (AUTO) 6.3 % (3-13); PLATELET COUNT 166 10^3/uL (150-450); RED BLOOD COUNT 3.42 10^6/uL (3.72-5.28); RED CELL DISTRIBUTION WIDTH 17.7 % (11.5-14.0); SEGMENTED NEUTROPHILS % (AUTO) 77.2 % (42-78); TOTAL CELLS COUNTED % (AUTO) 100 %; WHITE BLOOD COUNT 10.3 10^3/uL (4.0-10.5)
[2020-03-01 05:54] LABS: HEMOGLOBIN 8.7 g/dL (12.0-15.5)
[2020-03-01 06:18] LABS: ALBUMIN 2.8 g/dL (3.5-5.0); ALKALINE PHOSPHATASE 59 U/L (38-126); ANION GAP 9 (5-19); ASPARTATE AMINO TRANSFERASE 34 U/L (14-36); BILIRUBIN,DIRECT 0.3 mg/dL (0.0-0.4); BILIRUBIN,TOTAL 0.7 mg/dL (0.2-1.3); BLOOD UREA NITROGEN 70 mg/dL (7-20); CALCIUM 9.3 mg/dL (8.4-10.2); CARBON DIOXIDE 21 mmol/L (22-30); CHLORIDE 111 mmol/L (98-107); GLUCOSE 108 mg/dL (75-110); POTASSIUM 4.7 mmol/L (3.6-5.0); TOTAL PROTEIN 6.6 g/dL (6.3-8.2)
[2020-03-01] MEDS: IPRATROPIUM/ALBUTEROL 0.5-2.5 MG/3 ML AMPUL NEB SCH ×3 (08:23→20:49)
--- NOTE | 2020-03-01 08:53 | PDOC PROGRESS REPORT ---
Subjective Date:: 03/01/20 Subjective:: CELSO KENNEDY is a 84 year old female with history of chronic renal insufficiency, coronary artery disease status post four-vessel CABG in 2004 with JACOBO to the LAD, sequential SVG to the ramus and OM 2 and SVG to the PDA, cardiomyopathy, peripheral vascular disease status post left lower leg amputation, carotid artery disease, malignant hypertension and heart failure who is consulted to our service for evaluation of heart failure. The patient was apparently in her usual state of health until 02/27/2020 when she began with shortness of breath. Her symptoms progressed to the point EMS was called. The patient was found to be lethargic with a pulse oximetry of 52% at which point CPAP was initiated with oxygen saturation responded to 90% and eventually was changed to BiPAP in our emergency room with significant improvement in her symptoms, it was noted that she was in atrial fibrillation. She had an uneventful night. She feels slightly better and denies ischemic symptoms. Her telemetry shows atrial fibrillation with a controlled ventricular rate. 03/01/20 Overnight the patient did relatively well from a cardiovascular standpoint however when her BiPAP was discontinued and was placed on nasal cannula she experienced an episode of desaturation therefore BiPAP was restarted. Unfortunately her fluid balance continues to be positive although she diuresed better after increasing her Lasix to 80 mg IV twice daily. Unfortunately her renal dysfunction continues to worsen which is concerning for the possibility of cardiorenal syndrome. She actually looks clinically much better this morning, she is fully awake and able to speak in full sentences. She denies cardiac complaints. Her telemetry shows atrial fibrillation with a controlled rate and no VT. Physical exam on 03/01/2020: GENERAL: Sitting up in bed, on BiPAP. Pleasant and conversational. Oriented x3 with normal mood. Not in acute distress. Disheveled. Obese. HEENT: Normocephalic, atraumatic. Pupils equal. Sclerae anicteric. Oropharynx moist. NECK: Difficult to evaluate for JVD given her body habitus. LUNGS: Coarse breath sounds bilaterally although improved from yesterday. On BiPAP. CARDIOVASCULAR: Irregularly irregular rate and rhythm, no murmurs, rubs, or gallops. PMI not displaced. ABDOMEN: No masses or tenderness to palpation. No bruit. No splenomegaly or hepatomegaly. No abdominal aorta bruit noted. EXTREMITIES: No pitting edema on the right, left lower extremity is amputated. SKIN: No lesions or rashes. MUSCULOSKELETAL: No chest tenderness to palpation. NEUROLOGIC: Nonfocal. No gross sensory or motor deficits bilateral upper or lower extremities. Cardiac studies: Echocardiogram on 02/28/2020 at [facility]: -Severely depressed LV systolic function. -EF 35%. -Grade 2 diastolic dysfunction. -Cannot evaluate regional wall motion normalities. -Mild LV dilatation. -Mild concentric LVH. -Mild MR, trace AI, trace TR. Echocardiogram on 07/29/2014 at [facility]: -EF 50 to 55%. -Grade 1 diastolic dysfunction. -Mild concentric LVH. -Septal motion consistent with conduction abnormality. -Unable to assess for regional wall motion abnormalities. -Mild LAE. -Trace MR, trace TR, trace AI, trace PI. -Mild pulmonary hypertension. Reason For Visit: BILATERIAL PNEUMONIA, HYPOXEMIA, ATRIAL FLUTTER, Physical Exam Vital Signs: Temp Pulse Resp BP Pulse Ox 98.0 F 65 17 118/58 L 100 03/01/20 03:23 03/01/20 03:23 03/01/20 04:52 03/01/20 03:23 03/01/20 04:52 Intake & Output 02/28/20 02/29/20 03/01/20 06:59 06:59 06:59 Intake Total 850 1487 Output Total 175 1050 Balance 675 437 Weight 137.9 kg Results Laboratory Results: 03/01/20 05:07 03/01/20 05:07 02/29/20 02/29/20 02/29/20 07:01 07:01 08:39 WBC 10.5 RBC 4.24 Hgb 10.8 L Hct 33.5 L MCV 79 L MCH 25.4 L MCHC 32.1 RDW 17.7 H Plt Count 173 Seg Neutrophils % 77.4 Sodium Cancelled 140.9 Potassium Cancelled 5.0 Chloride Cancelled 110 H Carbon Dioxide Cancelled 21 L Anion Gap Cancelled 10 BUN Cancelled 63 H Creatinine Cancelled 2.36 H Est GFR ( Amer) Cancelled 24 L Est GFR (Non-Af Amer) Cancelled Glucose Cancelled 222 H Calcium Cancelled 9.7 Total Bilirubin Cancelled 0.7 AST Cancelled 36 Alkaline Phosphatase Cancelled 80 Total Protein Cancelled 7.6 Albumin Cancelled 3.2 L Triglycerides Cancelled 109 Cholesterol Cancelled 126.76 LDL Cholesterol Direct Cancelled 49 VLDL Cholesterol Cancelled 22.0 HDL Cholesterol Cancelled 42 Free T4 Free T3 pg/mL Urine Color Urine Appearance Urine pH Ur Specific [place] Urine Protein Urine Glucose (UA) Urine Ketones Urine Blood Urine Nitrite Ur Leukocyte Esterase Urine WBC (Auto) Urine RBC (Auto) 02/29/20 03/01/20 03/01/20 08:39 04:40 05:07 WBC 10.3 RBC 3.42 L Hgb 8.7 L D Hct 26.5 L MCV 77 L MCH 25.4 L MCHC 32.8 RDW 17.7 H Plt Count 166 Seg Neutrophils % 77.2 Sodium Potassium Chloride Carbon Dioxide Anion Gap BUN Creatinine Est GFR ( Amer) Est GFR (Non-Af Amer) Glucose Calcium Total Bilirubin AST Alkaline Phosphatase Total Protein Albumin Triglycerides Cholesterol LDL Cholesterol Direct VLDL Cholesterol HDL Cholesterol Free T4 1.35 Free T3 pg/mL 2.16 L Urine Color YELLOW Urine Appearance SLIGHTLY-CLOUDY Urine pH 5.0 Ur Specific [place] 1.013 Urine Protein NEGATIVE Urine Glucose (UA) NEGATIVE Urine Ketones NEGATIVE Urine Blood NEGATIVE Urine Nitrite NEGATIVE Ur Leukocyte Esterase LARGE H Urine WBC (Auto) 11 Urine RBC (Auto) 5 03/01/20 05:07 WBC RBC Hgb Hct MCV MCH MCHC RDW Plt Count Seg Neutrophils % Sodium 140.9 Potassium 4.7 Chloride 111 H Carbon Dioxide 21 L Anion Gap 9 BUN 70 H Creatinine 2.50 H Est GFR ( Amer) 22 L Est GFR (Non-Af Amer) Glucose 108 Calcium 9.3 Total Bilirubin 0.7 AST 34 Alkaline Phosphatase 59 Total Protein 6.6 Albumin 2.8 L Triglycerides Cholesterol LDL Cholesterol Direct VLDL Cholesterol HDL Cholesterol Free T4 Free T3 pg/mL Urine Color Urine Appearance Urine pH Ur Specific [place] Urine Protein Urine Glucose (UA) Urine Ketones Urine Blood Urine Nitrite Ur Leukocyte Esterase Urine WBC (Auto) Urine RBC (Auto) 02/28/20 10:49 Blood Blood Culture (PCR) - Final Staphylococcus Species 02/28/20 09:42 Blood Blood Culture (PCR) - Final Staphylococcus Species 02/28/20 02/28/20 02/28/20 09:42 09:42 18:24 Creatine Kinase 57 Troponin I 0.070 1.860 NT-Pro-B Natriuret Pep 3980 H 02/29/20 02/29/20 02/29/20 00:50 07:01 08:39 Creatine Kinase Troponin I 2.100 Cancelled 1.470 NT-Pro-B Natriuret Pep Impressions: Venous Doppler Study 02/28/20 00:00 IMPRESSION: NO EVIDENCE DVT OR SVT IN THE RIGHT LEG. Chest X-Ray 02/28/20 09:46 IMPRESSION: Cardiomegaly and bilateral basilar predominant pleural and paren chymal opacities. Clinical correlation for signs and symptoms of CHF is recommended. 03/01/20 05:07 03/01/20 05:07 MCV 77 fl (80-97) L 03/01/20 05:07 MCH 25.4 pg (27.0-33.4) L 03/01/20 05:07 MCHC 32.8 g/dL (32.0-36.0) 03/01/20 05:07 RDW 17.7 % (11.5-14.0) H 03/01/20 05:07 Seg Neutrophils % 77.2 % (42-78) 03/01/20 05:07 Carbonic Acid 1.23 mmol/L (1.05-1.35) 02/28/20 09:42 HCO3/H2CO3 Ratio 16:1 02/28/20 09:42 ABG pH 7.33 (7.35-7.45) L 02/28/20 09:42 ABG pCO2 40.8 mmHg (35-45) 02/28/20 09:42 ABG pO2 88.2 mmHg (80-100) 02/28/20 09:42 ABG HCO3 20.8 mmol/L (20-24) 02/28/20 09:42 ABG O2 Saturation 96.1 % (94-98) 02/28/20 09:42 ABG Base Excess -4.9 mmol/L 02/28/20 09:42 FiO2 60% 02/28/20 09:42 Chloride 111 mmol/L (98-107) H 03/01/20 05:07 Carbon Dioxide 21 mmol/L (22-30) L 03/01/20 05:07 Anion Gap 9 (5-19) 03/01/20 05:07 Est GFR ( Amer) 22 (>60) L 03/01/20 05:07 Est GFR (Non-Af Amer) Cancelled 02/29/20 07:01 Glucose 108 mg/dL (75-110) 03/01/20 05:07 Lactic Acid 3.1 mmol/L (0.7-2.1) H 02/28/20 09:42 Calcium 9.3 mg/dL (8.4-10.2) 03/01/20 05:07 Ferritin 524.00 ng/mL (11.1-264.0) H 02/28/20 09:42 Total Bilirubin 0.7 mg/dL (0.2-1.3) 03/01/20 05:07 AST 34 U/L (14-36) 03/01/20 05:07 Alkaline Phosphatase 59 U/L (38-126) 03/01/20 05:07 C-Reactive Protein < 5.0 mg/L (<10.0) 02/28/20 09:42 Total Protein 6.6 g/dL (6.3-8.2) 03/01/20 05:07 Albumin 2.8 g/dL (3.5-5.0) L 03/01/20 05:07 Triglycerides 109 mg/dL (<150) 02/29/20 08:39 Cholesterol 126.76 mg/dL (0-200) 02/29/20 08:39 LDL Cholesterol Direct 49 mg/dL (<100) 02/29/20 08:39 VLDL Cholesterol 22.0 mg/dL (10-31) 02/29/20 08:39 HDL Cholesterol 42 mg/dL (>40) 02/29/20 08:39 TSH 0.41 uIU/mL (0.47-4.68) L 02/28/20 18:24 Free T4 1.35 ng/dL (0.78-2.19) 02/29/20 08:39 Free T3 pg/mL 2.16 pg/mL (2.77-5.27) L 02/29/20 08:39 Urine Color YELLOW 03/01/20 04:40 Urine Appearance SLIGHTLY-CLOUDY 03/01/20 04:40 Urine pH 5.0 (5.0-9.0) 03/01/20 04:40 Ur Specific [place] 1.013 03/01/20 04:40 Urine Protein NEGATIVE mg/dL (NEGATIVE) 03/01/20 04:40 Urine Glucose (UA) NEGATIVE mg/dL (NEGATIVE) 03/01/20 04:40 Urine Ketones NEGATIVE mg/dL (NEGATIVE) 03/01/20 04:40 Urine Blood NEGATIVE (NEGATIVE) 03/01/20 04:40 Urine Nitrite NEGATIVE (NEGATIVE) 03/01/20 04:40 Ur Leukocyte Esterase LARGE (NEGATIVE) H 03/01/20 04:40 Urine WBC (Auto) 11 /HPF 03/01/20 04:40 Urine RBC (Auto) 5 /HPF 03/01/20 04:40 02/28/20 10:49 Blood Blood Culture (PCR) - Final Staphylococcus Species 02/28/20 09:42 Blood Blood Culture (PCR) - Final Staphylococcus Species 02/28/20 02/28/20 02/28/20 09:42 09:42 18:24 Creatine Kinase 57 Troponin I 0.070 1.860 NT-Pro-B Natriuret Pep 3980 H 02/29/20 02/29/20 02/29/20 00:50 07:01 08:39 Creatine Kinase Troponin I 2.100 Cancelled 1.470 NT-Pro-B Natriuret Pep Current Medication List Generic Name Dose Route Start Last Admin Trade Name Freq PRN Reason Stop Dose Admin Acetaminophen 650 mg 02/28/20 14:03 Acetaminophen 325 Mg Tablet PO 03/29/20 14:02 Q4HP PRN FEVER >101 Albuterol/Ipratropium 3 ml 02/28/20 20:00 03/01/20 08:23 Ipratropium/Albuterol 0.5-2.5 Mg/3 Ml Ampul NEB 03/29/20 19:59 3 ml [id number] MARILY Administration Atorvastatin Calcium 40 mg 02/28/20 22:00 02/29/20 21:36 Atorvastatin Calcium 40 Mg Tablet PO 03/29/20 21:59 40 mg QHS MARILY Administration Carvedilol 25 mg 02/28/20 22:00 02/29/20 21:37 Carvedilol 12.5 Mg Tablet PO 03/29/20 21:59 25 mg Q12 MARILY Administration Clonidine 0.1 mg 03/01/20 10:00 Clonidine Hcl 0.2 Mg Tablet PO 03/31/20 09:59 Q12 MARILY Clopidogrel Bisulfate 75 mg 02/29/20 10:00 02/29/20 09:28 Clopidogrel Bisulfate 75 Mg Tablet PO 03/30/20 09:59 75 mg DAILY MARILY Administration Dextrose 12.5 gm 02/28/20 14:15 Dextrose 50%-Water 25 Gm/50 Ml Disp.Syrin IV 03/29/20 14:14 PRN PRN FOR BG 50-69 IN ALERT PATIENT Protocol Dextrose 25 gm 02/28/20 14:15 Dextrose 50%-Water 25 Gm/50 Ml Disp.Syrin IV 03/29/20 14:14 PRN PRN PER PROTOCOL Protocol Enoxaparin Sodium 140 mg 02/28/20 22:00 02/29/20 21:50 Enoxaparin Sodium Inj 150 Mg/1 Ml Disp.Syrin SUBCUT 03/29/20 21:59 140 mg Q12 MARILY Administration Furosemide 80 mg 03/01/20 22:00 Furosemide Inj/Pf 100 Mg/10 Ml Sdv IV 03/31/20 21:59 Q12 MARILY Glucagon 1 mg 02/28/20 14:15 Glucagon,Human Recomb 1 Mg Inj IM 03/29/20 14:14 PRN PRN Evaluate for BG < 70 Protocol Glucose 15 gm 02/28/20 14:15 Dextrose 40% Gel 15 Gm Tube PO 03/29/20 14:14 PRN PRN FOR BG 50-69 IN ALERT PATIENT Protocol Glucose 30 gm 02/28/20 14:15 Dextrose 40% Gel 15 Gm Tube PO 03/29/20 14:14 PRN PRN FOR BG < 50 IN ALERT PATIENT Protocol Ceftriaxone Sodium/Dextrose 2 gm in 50 mls @ 100 mls/hr 02/28/20 16:30 02/29/20 18:23 Rocephin Rtu 2 Gm/D5w 50 Ml Premix Bag IV 03/06/20 16:29 Infused QPM MARILY Infusion Azithromycin 500 mg/ Dextrose 250 mls @ 250 mls/hr 02/28/20 22:00 02/29/20 22:41 IV 03/06/20 21:59 Infused QHS MARILY Infusion Insulin Glargine 44 unit 02/28/20 22:00 02/29/20 21:38 Insulin Glargine,Hum.Rec.Anlog 1,000 Unit/10 Ml Vial SUBCUT 03/29/20 21:59 Not Given QHS MARILY Insulin Human Lispro 0 - 12 unit 02/28/20 16:00 02/29/20 21:37 Insulin Lispro 100 Unit/Ml 3 Ml Vial SUBCUT 03/29/20 15:59 Not Given ACHS [facility] Protocol Insulin Human Lispro 15 unit 02/28/20 17:00 02/29/20 17:27 Insulin Lispro 100 Unit/Ml 3 Ml Vial SUBCUT 03/29/20 16:59 15 unit BIDACBS MARILY Administration Lisinopril 40 mg 02/29/20 10:00 02/29/20 09:28 Lisinopril 10 Mg Tablet PO 03/30/20 09:59 40 mg DAILY MARILY Administration Melatonin 10 mg 02/29/20 22:00 02/29/20 21:36 Melatonin 5 Mg Tablet PO 03/30/20 21:59 10 mg QHS MARILY Administration Ondansetron HCl 4 mg 02/28/20 14:03 Ondansetron Hcl Inj/Pf 4 Mg/2 Ml Sdv IV 03/29/20 14:02 Q6HP PRN FOR NAUSEA/VOMITING Patient Own Medication 1 mcg 02/29/20 10:00 Paricalcitol [Zemplar 1 Mcg Capsule] PO 03/30/20 09:59 .DAILY MARILY Discontinued Medications Generic Name Dose Route Start Last Admin Trade Name Freq PRN Reason Stop Dose Admin Ascorbic Acid 500 mg 02/28/20 18:00 02/28/20 17:54 Ascorbic Acid 500 Mg Tablet PO 03/29/20 17:59 500 mg BID MARILY Administration Aspirin 324 mg 02/28/20 18:45 02/28/20 19:24 Aspirin 81 Mg Tablet, Chewable PO 02/28/20 18:46 324 mg NOW ONE Administration Azithromycin 500 mg 02/28/20 16:00 Azithromycin Inj 500 Mg Vial IV 03/06/20 15:59 DAILY [facility] Clonidine 0.2 mg 02/28/20 22:00 03/01/20 05:16 Clonidine Hcl 0.2 Mg Tablet PO 03/29/20 21:59 Not Given Q8 [facility] Dexamethasone Sodium Phosphate 6 mg 02/29/20 10:00 Dexamethasone Sod Phos Inj 10 Mg/1 Ml Vial IV 03/30/20 09:59 DAILY [facility] Enoxaparin Sodium 30 mg 02/29/20 10:00 Enoxaparin Sodium Inj 30 Mg/0.3 Ml Disp.Syrin SUBCUT 03/30/20 09:59 DAILY [facility] Furosemide 40 mg 02/28/20 15:00 02/28/20 15:21 Furosemide Inj/Pf 40 Mg/4 Ml Sdv IV 02/28/20 15:01 40 mg NOW ONE Administration Furosemide 40 mg 02/28/20 22:00 02/29/20 09:29 Furosemide Inj/Pf 40 Mg/4 Ml Sdv IV 03/29/20 21:59 40 mg Q12 MARILY Administration Furosemide 40 mg 02/29/20 10:00 02/29/20 12:21 Furosemide Inj/Pf 40 Mg/4 Ml Sdv IV 02/29/20 10:01 40 mg NOW ONE Administration Furosemide 80 mg 02/29/20 22:00 Furosemide Inj/Pf 100 Mg/10 Ml Sdv IV 03/30/20 21:59 Q12 MARILY Nifedipine 30 mg 02/28/20 18:00 02/29/20 06:50 Nifedipine 30 Mg Tab.Er.24 PO 03/29/20 17:59 30 mg Q12A MARILY Administration Sodium Bicarbonate 650 mg 02/28/20 18:00 02/28/20 17:54 Sodium Bicarbonate 650 Mg Tablet PO 03/29/20 17:59 650 mg BID MARILY Administration Zinc Sulfate 220 mg 02/28/20 15:00 02/28/20 15:23 Zinc Sulfate 220 Mg Capsule PO 02/28/20 15:01 220 mg NOW ONE Administration Assessment & Plan - Diagnosis (1) NSTEMI (non-ST elevated myocardial infarction) Is this a current diagnosis for this admission?: Yes Plan: The patient continues to be hemodynamically and electrically stable and free of ischemic symptoms since admission. Her troponin peaked at 2.1. Unfortunately her echocardiogram demonstrated an ejection fraction of 35%. She is currently free of ischemic symptoms and is on GDMT except for a baby aspirin. I discussed with her this morning, 1 more time, invasive assessment with left heart c atheterization versus medical management, the patient opted for medical management again. Recommendations: -Add baby aspirin. -Continue with full anticoagulation with Lovenox, renally adjusted. -Medical management as chosen by the patient. -We will continue to follow with you. (2) Heart failure with reduced ejection fraction Is this a current diagnosis for this admission?: Yes Plan: It is difficult to assess the patient's fluid status because of her body habitus and because her urinary output just started to be recorded yesterday. Her lungs, however, sound better than yesterday and her lower extremity edema is improved. The need for BiPAP may be multifactorial to include her heart disease as well as possible hypoventilation syndrome from her body habitus. Given the above and worsening of her renal dysfunction I believe we can try switching her from IV Lasix to p.o. Lasix with close attention to her clinical and fluid status. Once again, I am very concerned about the possibility of cardiorenal syndrome. Of note, she is now anemic. I will defer further management of her anemia to her primary team. Recommendations: -Change IV Lasix to p.o. Lasix. -Continue to restrict fluid intake to 1500 cc daily. -Low sodium diet, less than 1500 mg daily. -Strict intake and output. -Daily weights. -Daily BMP/magnesium and replace electrolytes as needed. (3) HTN (hypertension) Qualifiers: Hypertension type: essential hypertension Qualified Code(s): I10 - Essential (primary) hypertension Is this a current diagnosis for this admission?: Yes Plan: Her blood pressure is currently at goal. Recommendations: -Continue current medical management. (4) Coronary artery disease Qualifiers: Coronary Disease-Associated Artery/Lesion type: bypass graft Is this a current diagnosis for this admission?: Yes Plan: Please see #1 above for recommendations. (5) Atrial fibrillation Qualifiers: Atrial fibrillation type: unspecified Qualified Code(s): I48.91 - Unspecified atrial fibrillation Is this a current diagnosis for this admission?: Yes Plan: This is apparently her first episode of her atrial fibrillation. She is fully anticoagulated at this point. Her heart rate is well controlled. Recommendations: -Continue with current management. -Close follow-up of her renal dysfunction and adjust anticoagulation accordingly.
[2020-03-01] MEDS: INSULIN LISPRO 100 UNIT/ML 3 ML VIAL SUBCUT SCH ×6 (09:31→21:25)
[2020-03-01] MEDS: LISINOPRIL 10 MG TABLET PO SCH (09:43)
[2020-03-01] MEDS: CARVEDILOL 12.5 MG TABLET PO SCH ×2 (09:43→22:16)
[2020-03-01] MEDS: CLOPIDOGREL BISULFATE 75 MG TABLET PO SCH (09:43)
[2020-03-01] MEDS: ENOXAPARIN SODIUM INJ 150 MG/1 ML DISP.SYRIN SUBCUT SCH ×2 (09:44→22:17)
--- NOTE | 2020-03-01 12:35 | PDOC PROGRESS REPORT ---
Subjective Date:: 03/01/20 Subjective:: CELSO KENNEDY is a 84 year old female, PMH of Type 2 DM, HTN, HLD, Quadruple b ypass who came in the ED due to shortness of breath. The patient was apparently feeling well yesterday morning then last night she noted SOB, which persisted until this morning. She denied any fever, cough, or chest pain, no palpitations. EMS was called and it was noted that her O2 sat was 60% , she was started on CPAP by EMS. In the ED her sats were noted to be low 80s on CPAP hence she was put on BIpap 100% FIO2 and her marily improved to 99%. BP in the ED was 145/59, HR 108, RR 25. CBC showed WBC 12.5, Hgb 9.9, plt 235. CMP showed normal sodium and potassium. crea 2.1 which is close to her baseline. CXR showed cardiomegaly and bibasilar opacities. BNP 3980. Rapid COVID negative. Hospitalist service called for further management. D2 Hospital stay. Patient was seen and examined at bedside. She was taken off bipap this morning but she was struggling to breath so she was put back on bipap. Troponin peaked at 2.1 and eventually trended down to 1.4. She did not complain of any chest pain. I was able to speak to Dr. Arcos who recommended to stop Sodium bicarb for now because of the high solute load from sodium and also to discontinue nifedipine due to acute HF. Her echo showed an EF of 30%, still in a.fib. She will likely need a cath in the near future and she would have to be transferred for this but for now the patient wants to do medical management. Her daughter Cydney was in the room during this discussion and all their questions were answered to the best of my abilities. d3 hospital stay. Patient was seen and examined at bedside. Again she was trialed off the BiPAP but she started breathing hard and became diaphoretic although she denied any chest pain. She was again put back on BiPAP. Urine output 1.2 L. Her Lasix were increased to 80 mg IV twice daily for diuresis. She had a minor increase in her troponin 2.5. I think this is likely cardiorenal and she will benefit from more diuresis to improve her hemodynamics. We will continue current Lasix dose for now. We will consult nephrology tomorrow. Patient is already on Plavix. Reason For Visit: BILATERIAL PNEUMONIA, HYPOXEMIA, ATRIAL FLUTTER, Physical Exam Vital Signs: Temp Pulse Resp BP Pulse Ox 97.3 F 91 22 H 122/53 L 100 03/01/20 08:28 03/01/20 08:25 03/01/20 11:29 03/01/20 08:22 03/01/20 11:29 Intake & Output 02/29/20 03/01/20 03/02/20 06:59 06:59 06:59 Intake Total 850 1487 Output Total 175 1265 Balance 675 222 Weight 137.9 kg 138.6 kg General appearance: PRESENT: mild distress, morbidly obese Head exam: PRESENT: atraumatic, normocephalic Eye exam: PRESENT: EOMI, PERRLA Mouth exam: PRESENT: moist Neck exam: PRESENT: full ROM Respiratory exam: PRESENT: rales, symmetrical Cardiovascular exam: PRESENT: +S1, +S2, tachycardia Pulses: PRESENT: +2 pedal pulses bilateral GI/Abdominal exam: PRESENT: normal bowel sounds, soft. ABSENT: rebound, tenderness Extremities exam: PRESENT: full ROM Musculoskeletal exam: PRESENT: full ROM Neurological exam: PRESENT: alert, awake, oriented to person, oriented to place, oriented to time, oriented to situation Psychiatric exam: PRESENT: normal mood Skin exam: PRESENT: normal color Results Laboratory Results: 03/01/20 05:07 03/01/20 05:07 02/29/20 03/01/20 03/01/20 08:39 04:40 05:07 WBC 10.3 RBC 3.42 L Hgb 8.7 L D Hct 26.5 L MCV 77 L MCH 25.4 L MCHC 32.8 RDW 17.7 H Plt Count 166 Seg Neutrophils % 77.2 Sodium Potassium Chloride Carbon Dioxide Anion Gap BUN Creatinine Est GFR ( Amer) Glucose Calcium Total Bilirubin AST Alkaline Phosphatase Total Protein Albumin Free T4 1.35 Free T3 pg/mL 2.16 L Urine Color YELLOW Urine Appearance SLIGHTLY-CLOUDY Urine pH 5.0 Ur Specific [place] 1.013 Urine Protein NEGATIVE Urine Glucose (UA) NEGATIVE Urine Ketones NEGATIVE Urine Blood NEGATIVE Urine Nitrite NEGATIVE Ur Leukocyte Esterase LARGE H Urine WBC (Auto) 11 Urine RBC (Auto) 5 03/01/20 05:07 WBC RBC Hgb Hct MCV MCH MCHC RDW Plt Count Seg Neutrophils % Sodium 140.9 Potassium 4.7 Chloride 111 H Carbon Dioxide 21 L Anion Gap 9 BUN 70 H Creatinine 2.50 H Est GFR ( Amer) 22 L Glucose 108 Calcium 9.3 Total Bilirubin 0.7 AST 34 Alkaline Phosphatase 59 Total Protein 6.6 Albumin 2.8 L Free T4 Free T3 pg/mL Urine Color Urine Appearance Urine pH Ur Specific [place] Urine Protein Urine Glucose (UA) Urine Ketones Urine Blood Urine Nitrite Ur Leukocyte Esterase Urine WBC (Auto) Urine RBC (Auto) 02/28/20 09:42 Blood Blood Culture (PCR) - Final Staphylococcus Species 02/28/20 10:49 Blood Blood Culture (PCR) - Final Staphylococcus Species 02/28/20 02/28/20 02/28/20 09:42 09:42 18:24 Creatine Kinase 57 Troponin I 0.070 1.860 NT-Pro-B Natriuret Pep 3980 H 02/29/20 02/29/20 02/29/20 00:50 07:01 08:39 Creatine Kinase Troponin I 2.100 Cancelled 1.470 NT-Pro-B Natriuret Pep Impressions: Venous Doppler Study 02/28/20 00:00 IMPRESSION: NO EVIDENCE DVT OR SVT IN THE RIGHT LEG. Chest X-Ray 02/28/20 09:46 IMPRESSION: Cardiomegaly and bilateral basilar predominant pleural and pare nchymal opacities. Clinical correlation for signs and symptoms of CHF is recommended. Assessment and Plan - Diagnosis (1) Acute hypoxemic respiratory failure Is this a current diagnosis for this admission?: Yes Plan: - came in due to SOB and desaturation at home 60% per EMS report - improved with BIPAP, she is currently on bipap - hx of CABG quadruple - CXR cardiomegaly and bilateral basilar predominant pleural and parenchymal opacities. -BNP elevated to 3980 -Covid negative -This is likely secondary to pulmonary congestion from CHF -lasix increased to 80 BID -Continue O2 support with BiPAP (2) NSTEMI (non-ST elevated myocardial infarction) Is this a current diagnosis for this admission?: Yes Plan: - hx of CAD with CABG quadruple 10 years ago - came in due to SOB - EKG new onset LBBB, atrial flutter - troponin 0.07>1.8>2.1>1.47 - Given aspirin 325 - continue lisinopril, carvedilol, statin - echo showed moderate to severely depressed systolic function with LVEF approximately 30%. Grade 2 diastolic dysfunction. LA is severely dilated. - will most likely need ischemic work up in the near future. For now the patient wants medical management - cardio following. recommended to stop Sodium bicarb due to high sodium content, discontinue nifedipine due to acute HF. Meds discontinued - (3) New onset of congestive heart failure Is this a current diagnosis for this admission?: Yes Plan: - no prior hx of CHF but she has lasix on her med list - Hx of CABG quadruple, HTN, HLD - CXR showed cardiomegaly and bilateral basilar predominant pleural and parenchymal opacities. -BNP 3190 -Troponin 0.07>1.8>2.1>1.47 - EKG a.fib/flutter, LBBB - increased lasix 80 IV BID - continue lisinopril, carvedilol, statin - echo showed EF 50%, moderate to severely depressed systolic function Grade 2 diastolic dysfunction. LA is severely dilated. - per cardio recs recommend to stop Sodium bicarb and Nifedipine - will discuss with cardio possible life vest needs with depressed EF. - Urine output 1.2 L and she had a mild increase in her creatinine. I think she will benefit from more diuresis to improve her hemodynamics. We will continue current Lasix dose and monitor her creatinine. We will consult nephrology if needed. - fluid restriction 1.5L - daily weights - strict IO (4) Atrial flutter Qualifiers: Atrial flutter type: unspecified Qualified Code(s): I48.92 - Unspecified atrial flutter Is this a current diagnosis for this admission?: Yes Plan: - new onset - No previous EKG to compare - not in RVR HR 88 - Chadsvasc score 6 points - started on lovenox therapeutic - maybe due to CHF exacerbation - TSH 0.4 midlly decREASED. FT4 normal. Likely has subclinical hyperthyroidism - echo as described above - cardio following (5) Elevated d-dimer Is this a current diagnosis for this admission?: Yes Plan: - D dimer 3.8 in the setting of SOB - No DVT on doppler - Crea 2.1 precludes CTA and CXR is showing changes consistent with pulm conge stion - patient is on therapeutic lovenox - will switch to oral AC. Eliquis renally adjusted (6) Coronary artery disease Qualifiers: Coronary Disease-Associated Artery/Lesion type: bypass graft Is this a current diagnosis for this admission?: Yes Plan: - no chest pain - continue plavix, lisinopril, statin (7) HTN (hypertension) Qualifiers: Hypertension type: essential hypertension Qualified Code(s): I10 - Essential (primary) hypertension Is this a current diagnosis for this admission?: Yes Plan: - continue clonidine and lisinopril - nifedipine stopped (8) HLD (hyperlipidemia) Qualifiers: Hyperlipidemia type: unspecified Qualified Code(s): E78.5 - Hyperlipidemia, unspecified Is this a current diagnosis for this admission?: Yes Plan: - continue lipitor (9) New onset left bundle branch block (LBBB) Is this a current diagnosis for this admission?: Yes Plan: - continue plavix, lisinopril, carvedilol (10) Chronic renal insufficiency, stage III (moderate) Qualifiers: Chronic kidney disease stage 3 subtype: stage 3b (GFR 30-44) Qualified Code(s): N18.32 - Chronic kidney disease, stage 3b Is this a current diagnosis for this admission?: Yes Plan: - Crea 2.1>2.36>2.5 which is at baseline -Minimal increase in her creatinine. I still think she would benefit from more diuresis to improve her hemodynamics. We will keep her on the current dose of Lasix and will consider nephro consult will continue to monitor as we are diuresing her - Sodium bicarb stopped due to high solute load from sodium which may aggravate HF (11) Type 2 diabetes mellitus Qualifiers: Diabetes mellitus long term care pharmacist insulin use: with long term care pharmacist use Diabetes mellitus complication status: with kidney complications Diabetes mellitus complication detail: with chronic kidney disease Chronic kidney disease stage: stage 3 (moderate) Is this a current diagnosis for this admission?: Yes Plan: - On lantus 44 u sq daily and lispro 15 u BID - willl check A1C - resumed home dose of insulin - Accucheck ACHS, SSI, hypoglycemia protocol (12) Suspected COVID-19 virus infection Is this a current diagnosis for this admission?: Yes Plan: - COVID negative (13) S/P CABG x 4 Is this a current diagnosis for this admission?: Yes Plan: 10 years ago - Time Time Spent with patient: 25-34 minutes Medications reviewed and adjusted accordingly: Yes Anticipated Discharge Disposition: Home with Home Health Anticipated Discharge Timeframe: TBD
[2020-03-01] MEDS: CEFTRIAXONE 2 GM/D5W RTU 2 GM/50 ML RTUPB IV SCH (17:30)
[2020-03-01] MEDS: INSULIN GLARGINE,HUM.REC.ANLOG 1,000 UNIT/10 ML VIAL SUBCUT SCH (21:35)
[2020-03-01] MEDS: AZITHROMYCIN 500 MG in DEXTROSE 5%-WATER 250 ML IV SCH (22:16)
[2020-03-01] MEDS: ATORVASTATIN CALCIUM 40 MG TABLET PO SCH (22:17)
[2020-03-01] MEDS: MELATONIN 5 MG TABLET PO SCH (22:17)
[2020-03-01] MEDS: FUROSEMIDE INJ/PF 100 MG/10 ML SDV IV SCH (22:19)
--- NOTE | 2020-03-02 01:51 | CDI QUERY ---
CDI Query CDI Review: We are seeking further clarification of documentation to reflect the severity of illness of your patient. Per Progress Notes: New onset of congestive heart failure Is this a current diagnosis for this admission?: Yes Plan: - no prior hx of CHF but she has lasix on her med list - Hx of CABG quadruple, HTN, HLD - CXR showed cardiomegaly and bilateral basilar predominant pleural and parenchymal opacities. -BNP 3190 -Troponin 0.07>1.8>2.1>1.47 - EKG a.fib/flutter, LBBB - increased lasix 80 IV BID - continue lisinopril, carvedilol, statin - echo showed EF 50%, moderate to severely depressed systolic function Grade 2 diastolic dysfunction. LA is severely dilated. Based on your medical judgement, can you further clarify in the Progress Notes and carry through to the Discharge Summary: Type of heart failure: Systolic Diastolic Combined systolic/diastolic Other (please specify) None of the above / Not applicable - AND Severity of heart failure Acute, exacerbation, or decompensation Chronic Acute on chronic Other (please specify) None of the above / Not applicable Thank you for your consideration. SIMONE Kenny RN Clinical [employer] Worker Physician Advisor
[2020-03-02 06:52] LABS: ABSOLUTE EOSINOPHILS # (AUTO) 0.1 10^3/uL (0.0-0.6); ABSOLUTE LYMPHOCYTES (AUTO) 1.9 10^3/uL (0.5-4.7); ABSOLUTE MONOCYTES (AUTO) 0.8 10^3/uL (0.1-1.4); ABSOLUTE NEUT (AUTO) 7.6 10^3/uL (1.7-8.2); BASOPHILS % (AUTO) 0.3 % (0-2); EOSINOPHILS % (AUTO) 1.1 % (0-6); HEMATOCRIT 28.8 % (36.0-47.0); HEMOGLOBIN 9.1 g/dL (12.0-15.5); LYMPHOCYTES % (AUTO) 17.8 % (13-45); MEAN CORPUSCULAR HEMOGLOBIN 24.8 pg (27.0-33.4); MEAN CORPUSCULAR HGB CONC 31.7 g/dL (32.0-36.0); MEAN CORPUSCULAR VOLUME 78 fl (80-97); MONOCYTES % (AUTO) 7.9 % (3-13); PLATELET COUNT 161 10^3/uL (150-450); RED BLOOD COUNT 3.69 10^6/uL (3.72-5.28); RED CELL DISTRIBUTION WIDTH 17.6 % (11.5-14.0); SEGMENTED NEUTROPHILS % (AUTO) 72.9 % (42-78); TOTAL CELLS COUNTED % (AUTO) 100 %; WHITE BLOOD COUNT 10.5 10^3/uL (4.0-10.5)
[2020-03-02 07:12] LABS: ALBUMIN 2.9 g/dL (3.5-5.0); ALKALINE PHOSPHATASE 58 U/L (38-126); ANION GAP 7 (5-19); ASPARTATE AMINO TRANSFERASE 54 U/L (14-36); BILIRUBIN,DIRECT 0.3 mg/dL (0.0-0.4); BILIRUBIN,TOTAL 0.7 mg/dL (0.2-1.3); BLOOD UREA NITROGEN 72 mg/dL (7-20); CALCIUM 9.6 mg/dL (8.4-10.2); CARBON DIOXIDE 21 mmol/L (22-30); CHLORIDE 113 mmol/L (98-107); GLUCOSE 105 mg/dL (75-110); POTASSIUM 4.5 mmol/L (3.6-5.0); TOTAL PROTEIN 6.6 g/dL (6.3-8.2)
[2020-03-02] MEDS: IPRATROPIUM/ALBUTEROL 0.5-2.5 MG/3 ML AMPUL NEB SCH ×3 (08:22→20:26)
[2020-03-02] MEDS: INSULIN LISPRO 100 UNIT/ML 3 ML VIAL SUBCUT SCH ×6 (09:26→22:36)
[2020-03-02] MEDS: FUROSEMIDE INJ/PF 100 MG/10 ML SDV IV SCH ×2 (09:36→22:29)
[2020-03-02] MEDS: LISINOPRIL 10 MG TABLET PO SCH (09:36)
[2020-03-02] MEDS: CLOPIDOGREL BISULFATE 75 MG TABLET PO SCH (09:36)
[2020-03-02] MEDS: CLONIDINE HCL 0.2 MG TABLET PO SCH ×2 (09:36→22:27)
[2020-03-02] MEDS: CARVEDILOL 12.5 MG TABLET PO SCH ×2 (09:36→22:28)
--- NOTE | 2020-03-02 09:44 | PDOC PROGRESS REPORT ---
Subjective Date:: 03/02/20 Subjective:: Patient was seen and examined together with the nurse. She continues to endorse some dyspnea. She was placed back on noninvasive respiratory support. She does not endorse any chest pain. Reason For Visit: BILATERIAL PNEUMONIA, HYPOXEMIA, ATRIAL FLUTTER, Physical Exam Vital Signs: Temp Pulse Resp BP Pulse Ox 97.9 F 78 19 142/58 H 95 03/02/20 07:32 03/02/20 07:32 03/02/20 07:32 03/02/20 07:32 03/02/20 07:32 Intake & Output 03/01/20 03/02/20 03/03/20 06:59 06:59 06:59 Intake Total 1487 1110 Output Total 1265 2040 Balance 222 -930 Weight 138.6 kg 137 kg General appearance: PRESENT: cooperative, obese, well-developed, well-nourished Head exam: PRESENT: atraumatic, normocephalic Eye exam: PRESENT: conjunctiva pink, EOMI Mouth exam: PRESENT: moist Respiratory exam: PRESENT: crackles, decreased breath sounds, prolonged expiratory phas, symmetrical Cardiovascular exam: PRESENT: irregular rhythm, +S1, +S2 Pulses: PRESENT: normal radial pulses, other - Well-healed sternotomy incision GI/Abdominal exam: PRESENT: soft Rectal exam: PRESENT: deferred Musculoskeletal exam: PRESENT: deformity Psychiatric exam: PRESENT: appropriate affect Skin exam: PRESENT: dry, intact, normal color Results Laboratory Results: 03/02/20 06:11 03/02/20 06:11 03/02/20 03/02/20 06:11 06:11 WBC 10.5 RBC 3.69 L Hgb 9.1 L Hct 28.8 L MCV 78 L MCH 24.8 L MCHC 31.7 L RDW 17.6 H Plt Count 161 Seg Neutrophils % 72.9 Sodium 141.1 Potassium 4.5 Chloride 113 H Carbon Dioxide 21 L Anion Gap 7 BUN 72 H Creatinine 2.25 H Est GFR ( Amer) 25 L Glucose 105 Calcium 9.6 Total Bilirubin 0.7 AST 54 H Alkaline Phosphatase 58 Total Protein 6.6 Albumin 2.9 L 02/28/20 09:42 Blood Blood Culture (PCR) - Final Staphylococcus Species 02/28/20 10:49 Blood Blood Culture (PCR) - Final Staphylococcus Species 02/28/20 02/28/2020 09:42 09:42 18:24 Creatine Kinase 57 Troponin I 0.070 1.860 NT-Pro-B Natriuret Pep 3980 H 02/29/20 02/29/20 02/29/20 00:50 07:01 08:39 Creatine Kinase Troponin I 2.100 Cancelled 1.470 NT-Pro-B Natriuret Pep EKG Comments: Transthoracic echocardiogram 02/28/2020 Left ventricular ejection fraction 30% Mild mitral regurgitation, trace aortic regurgitation Twelve-lead EKG 02/28/2020. Independently viewed by me. Sinus rhythm, first-degree AV block, left bundle branch block Impressions: Venous Doppler Study 02/28/20 00:00 IMPRESSION: NO EVIDENCE DVT OR SVT IN THE RIGHT LEG. Chest X-Ray 02/28/20 09:46 IMPRESSION: Cardiomegaly and bilateral basilar predominant pleural and parenchymal opacities. Clinical correlation for signs and symptoms of CHF is recommended. Assessment & Plan - Diagnosis (1) Bilateral pneumonia Qualifiers: Pneumonia type: due to unspecified organism Lung location: lower lobe of lung Qualified Code(s): J18.9 - Pneumonia, unspecified organism Is this a current diagnosis for this admission?: Yes Plan: Pneumonia Patient is receiving intravenous antibiotics Noninvasive respiratory support Respiratory status still appears to be tenuous (2) Coronary artery disease Qualifiers: Coronary Disease-Associated Artery/Lesion type: bypass graft Is this a current diagnosis for this admission?: Yes Plan: Guideline directed medical therapy Continue atorvastatin Kyth-[id number] carvedilol (3) Atrial fibrillation Qualifiers: Atrial fibrillation type: unspecified Qualified Code(s): I48.91 - Unspecified atrial fibrillation Is this a current diagnosis for this admission?: Yes Plan: Rate control strategy Systemic anticoagulation-we will transition from enoxaparin in the next 24 hours. Continue beta-helio (4) NSTEMI (non-ST elevated myocardial infarction) Is this a current diagnosis for this admission?: Yes Plan: Non-ST segment elevation myocardial infarction This is occurred in the setting of respiratory distress and pneumonia with heart failure exacerbation No ongoing chest pain Left ventricular function is depressed and is estimated at about 30% However patient has multiple medical problems and with tenuous respiratory sta tus and with absent chest pain and based on patient discussion medical therapy is being opted for. Would recommend aspirin 81 mg daily Systemic anticoagulation with enoxaparin. Renally dosed. Continue carvedilol 25 mg twice daily Continue atorvastatin 40 mg daily (5) CHF (congestive heart failure), NYHA class II Qualifiers: Congestive heart failure type: systolic Congestive heart failure chronicity: chronic Qualified Code(s): I50.22 - Chronic systolic (congestive) heart failure Is this a current diagnosis for this admission?: Yes Plan: Acute decompensated congestive heart failure Continue with the plan to diurese. We will have to monitor renal function She probably has underlying CKD Legs are still somewhat edematous. Respiratory status is tenuous but is multifactorial on account of respiratory infection as well.
[2020-03-02 10:04] LABS: APPEARANCE,URINE CLOUDY; BILIRUBIN,URINE NEGATIVE (NEGATIVE); COLOR,URINE YELLOW; GLUCOSE, URINE NEGATIVE (NEGATIVE); KETONES,URINE NEGATIVE (NEGATIVE); LEUKOCYTE ESTERASE,URINE TRACE (NEGATIVE); NITRITE,URINE NEGATIVE (NEGATIVE); PROTEIN,URINE NEGATIVE (NEGATIVE); UROBILINOGEN,URINE NEGATIVE mg/dL (<2.0)
--- NOTE | 2020-03-02 15:01 | PDOC PROGRESS REPORT ---
Subjective Date:: 03/02/20 Subjective:: CELSO KENNEDY is a 84 year old female, PMH of Type 2 DM, HTN, HLD, Quadruple b ypass who came in the ED due to shortness of breath. The patient was apparently feeling well yesterday morning then last night she noted SOB, which persisted until this morning. She denied any fever, cough, or chest pain, no palpitations. EMS was called and it was noted that her O2 sat was 60% , she was started on CPAP by EMS. In the ED her sats were noted to be low 80s on CPAP hence she was put on BIpap 100% FIO2 and her marily improved to 99%. BP in the ED was 145/59, HR 108, RR 25. CBC showed WBC 12.5, Hgb 9.9, plt 235. CMP showed normal sodium and potassium. crea 2.1 which is close to her baseline. CXR showed cardiomegaly and bibasilar opacities. BNP 3980. Rapid COVID negative. Hospitalist service called for further management. D2 Hospital stay. Patient was seen and examined at bedside. She was taken off bipap this morning but she was struggling to breath so she was put back on bipap. Troponin peaked at 2.1 and eventually trended down to 1.4. She did not complain of any chest pain. I was able to speak to Dr. Arcos who recommended to stop Sodium bicarb for now because of the high solute load from sodium and also to discontinue nifedipine due to acute HF. Her echo showed an EF of 30%, still in a.fib. She will likely need a cath in the near future and she would have to be transferred for this but for now the patient wants to do medical management. Her daughter Cydney was in the room during this discussion and all their questions were answered to the best of my abilities. D3 hospital stay. Patient was seen and examined at bedside. Again she was trialed off the BiPAP but she started breathing hard and became diaphoretic although she denied any chest pain. She was again put back on BiPAP. Urine output 1.2 L. Her Lasix were increased to 80 mg IV twice daily for diuresis. She had a minor increase in her troponin 2.5. I think this is likely cardiorenal and she will benefit from more diuresis to improve her hemodynamics. We will continue current Lasix dose for now. We will consult nephrology tomorrow. Patient is already on Plavix. D4 Hospital stay. Patient was seen and examined at bedside. She was seen off bipap and she looks much more comfortable today off bipap than she has been the past 2 days. She also reports that her breathing is much better, she denied any chest pain, no palpitations. I spoke to Dr. Hunter Fountain and discussed with him about angiogram and life vest. Since she has CKD and is at risk for kidney injury from contrast dye, an angiogram is not a good option right now. She is currently on guideline directed medical treatment for heart failure. I have spoken to her daughter and NORMA Lamas and explained to her the situation and s he understood and agreed with the plan. Reason For Visit: BILATERIAL PNEUMONIA, HYPOXEMIA, ATRIAL FLUTTER, Physical Exam Vital Signs: Temp Pulse Resp BP Pulse Ox 97.9 F 85 20 142/58 H 96 03/02/20 10:00 03/02/20 14:25 03/02/20 14:25 03/02/20 07:32 03/02/20 14:25 Intake & Output 03/01/20 03/02/20 03/03/20 06:59 06:59 06:59 Intake Total 1487 1110 240 Output Total 1265 2040 1450 Balance 222 -930 -1210 Weight 138.6 kg 137 kg General appearance: PRESENT: cooperative, mild distress Head exam: PRESENT: atraumatic, normocephalic Eye exam: PRESENT: EOMI, PERRLA Mouth exam: PRESENT: moist Neck exam: PRESENT: full ROM Respiratory exam: PRESENT: rales, symmetrical, unlabored Cardiovascular exam: PRESENT: irregular rhythm, +S1, +S2 Pulses: PRESENT: +2 pedal pulses bilateral GI/Abdominal exam: PRESENT: normal bowel sounds, soft. ABSENT: rebound, tenderness Extremities exam: PRESENT: full ROM Musculoskeletal exam: PRESENT: other - Surgically absent left leg Neurological exam: PRESENT: alert, awake, oriented to person, oriented to place, oriented to time, oriented to situation Psychiatric exam: PRESENT: normal mood Skin exam: PRESENT: normal color Results Laboratory Results: 03/02/20 06:11 03/02/20 06:11 03/02/20 03/02/20 03/02/20 06:11 06:11 09:35 WBC 10.5 RBC 3.69 L Hgb 9.1 L Hct 28.8 L MCV 78 L MCH 24.8 L MCHC 31.7 L RDW 17.6 H Plt Count 161 Seg Neutrophils % 72.9 Sodium 141.1 Potassium 4.5 Chloride 113 H Carbon Dioxide 21 L Anion Gap 7 BUN 72 H Creatinine 2.25 H Est GFR ( Amer) 25 L Glucose 105 Calcium 9.6 Total Bilirubin 0.7 AST 54 H Alkaline Phosphatase 58 Total Protein 6.6 Albumin 2.9 L Urine Color YELLOW Urine Appearance CLOUDY Urine pH 5.0 Ur Specific [place] 1.010 Urine Protein NEGATIVE Urine Glucose (UA) NEGATIVE Urine Ketones NEGATIVE Urine Blood SMALL H Urine Nitrite NEGATIVE Ur Leukocyte Esterase TRACE H Urine WBC (Auto) 2 Urine RBC (Auto) 3 02/28/20 09:42 Blood Blood Culture (PCR) - Final Staphylococcus Species 02/28/20 10:49 Blood Blood Culture (PCR) - Final Staphylococcus Species 02/28/20 02/28/20 02/28/20 09:42 09:42 18:24 Creatine Kinase 57 Troponin I 0.070 1.860 NT-Pro-B Natriuret Pep 3980 H 02/29/20 02/29/20 02/29/20 00:50 07:01 08:39 Creatine Kinase Troponin I 2.100 Cancelled 1.470 NT-Pro-B Natriuret Pep Impressions: Venous Doppler Study 02/28/20 00:00 IMPRESSION: NO EVIDENCE DVT OR SVT IN THE RIGHT LEG. Chest X-Ray 02/28/20 09:46 IMPRESSION: Cardiomegaly and bilateral basilar predominant pleural and parenchymal opacities. Clinical correlation for signs and symptoms of CHF is recommended. Assessment and Plan - Diagnosis (1) Acute hypoxemic respiratory failure Is this a current diagnosis for this admission?: Yes Plan: - came in due to SOB and desaturation at home 60% per EMS report - improved with BIPAP, she is currently on bipap - hx of CABG quadruple - CXR cardiomegaly and bilateral basilar predominant pleural and parenchymal opacities. -BNP elevated to 3980 -Covid negative -This is likely secondary to pulmonary congestion from CHF -lasix increased to 80 BID -Continue O2 support with BiPAP (2) NSTEMI (non-ST elevated myocardial infarction) Is this a current diagnosis for this admission?: Yes Plan: - hx of CAD with CABG quadruple 10 years ago - came in due to SOB - EKG new onset LBBB, atrial flutter - troponin 0.07>1.8>2.1>1.47 - Given aspirin 325 - continue lisinopril, carvedilol, statin - echo showed moderate to severely depressed systolic function with LVEF approximately 30%. Grade 2 diastolic dysfunction. LA is severely dilated. - will most likely need ischemic work up in the near future but is less straight forward given her kidney function - cardio following. recommended to stop Sodium bicarb due to high sodium content, discontinue nifedipine due to acute HF. Meds discontinued - (3) New onset of congestive heart failure Is this a current diagnosis for this admission?: Yes Plan: - no prior hx of CHF but she has lasix on her med list - Hx of CABG quadruple, HTN, HLD - CXR showed cardiomegaly and bilateral basilar predominant pleural and parenchymal opacities. -BNP 3190 -Troponin 0.07>1.8>2.1>1.47 - EKG a.fib/flutter, LBBB - increased lasix 80 IV BID - continue lisinopril, carvedilol, statin -Patient is on Plavix instead of aspirin - echo showed EF 50%, moderate to severely depressed systolic function Grade 2 diastolic dysfunction. LA is severely dilated. - per cardio recs recommend to stop Sodium bicarb and Nifedipine -Per cardiology would defer LifeVest for now and continue with guideline directed medical therapy. She has not had any episodes of V. tach per telemetry review. - Urine output 1.2 L and she had a mild increase in her creatinine. I think she will benefit from more diuresis to improve her hemodynamics. We will continue current Lasix dose and monitor her creatinine. We will consult nephrology if ne eded. - fluid restriction 1.5L - daily weights - strict IO (4) Atrial flutter Qualifiers: Atrial flutter type: unspecified Qualified Code(s): I48.92 - Unspecified atrial flutter Is this a current diagnosis for this admission?: Yes Plan: - new onset - No previous EKG to compare - not in RVR HR 88 - Chadsvasc score 6 points - received 2 days of lovenox. Will switch to eliquis 2.5 mg BID adjusted for her age and Crea - maybe due to CHF exacerbation - TSH 0.4 midlly decREASED. FT4 normal. Likely has subclinical hyperthyroidism - echo as described above - cardio following (5) Elevated d-dimer Is this a current diagnosis for this admission?: Yes Plan: - D dimer 3.8 in the setting of SOB - No DVT on doppler - Crea 2.1 precludes CTA and CXR is showing changes consistent with pulm congestion - patient is on therapeutic lovenox - will switch to oral AC. Eliquis renally adjusted (6) Coronary artery disease Qualifiers: Coronary Disease-Associated Artery/Lesion type: bypass graft Is this a current diagnosis for this admission?: Yes Plan: - no chest pain - continue plavix, lisinopril, statin (7) HTN (hypertension) Qualifiers: Hypertension type: essential hypertension Qualified Code(s): I10 - Essential (primary) hypertension Is this a current diagnosis for this admission?: Yes Plan: - continue clonidine and lisinopril - nifedipine stopped (8) HLD (hyperlipidemia) Qualifiers: Hyperlipidemia type: unspecified Qualified Code(s): E78.5 - Hyperlipidemia, unspecified Is this a current diagnosis for this admission?: Yes Plan: - continue lipitor (9) New onset left bundle branch block (LBBB) Is this a current diagnosis for this admission?: Yes Plan: - continue plavix, lisinopril, carvedilol (10) Chronic renal insufficiency, stage III (moderate) Qualifiers: Chronic kidney disease stage 3 subtype: stage 3b (GFR 30-44) Qualified Code(s): N18.32 - Chronic kidney disease, stage 3b Is this a current diagnosis for this admission?: Yes Plan: - Crea 2.1>2.36>2.5>2.25 which is at baseline -crea is starting to stabilize, not uptrending. Will continue her on current lasix dose and monitor - Sodium bicarb stopped due to high solute load from sodium which may aggravate HF (11) Type 2 diabetes mellitus Qualifiers: Diabetes mellitus half-way insulin use: with long term care pharmacist use Diabetes mellitus complication status: with kidney complications Diabetes mellitus complication detail: with chronic kidney disease Chronic kidney disease stage: stage 3 (moderate) Is this a current diagnosis for this admission?: Yes Plan: - On lantus 44 u sq daily - lispro changed to 5 u with meals instead of 15 units - willl check A1C - resumed home dose of insulin - Accucheck ACHS, SSI, hypoglycemia protocol (12) Suspected COVID-19 virus infection Is this a current diagnosis for this admission?: Yes Plan: - COVID negative (13) S/P CABG x 4 Is this a current diagnosis for this admission?: Yes Plan: 10 years ago - Time Time Spent with patient: 25-34 minutes Medications reviewed and adjusted accordingly: Yes Anticipated Discharge Disposition: Home with Home Health Anticipated Discharge Timeframe: tbd
[2020-03-02] MEDS: CEFTRIAXONE 2 GM/D5W RTU 2 GM/50 ML RTUPB IV SCH (17:43)
[2020-03-02] MEDS ORDERED: ENOXAPARIN SODIUM INJ 150 MG/1 ML DISP.SYRIN SUBCUT SCH (22:00)
[2020-03-02] MEDS: ATORVASTATIN CALCIUM 40 MG TABLET PO SCH (22:27)
[2020-03-02] MEDS: MELATONIN 5 MG TABLET PO SCH (22:28)
[2020-03-02] MEDS: AZITHROMYCIN 500 MG in DEXTROSE 5%-WATER 250 ML IV SCH (22:35)
[2020-03-02] MEDS: INSULIN GLARGINE,HUM.REC.ANLOG 1,000 UNIT/10 ML VIAL SUBCUT SCH (22:36)
[2020-03-03] MEDS: IPRATROPIUM/ALBUTEROL 0.5-2.5 MG/3 ML AMPUL NEB SCH ×3 (08:07→20:28)
--- NOTE | 2020-03-03 09:21 | PDOC PROGRESS REPORT ---
Subjective Date:: 03/03/20 Subjective:: Seen and examined. Endorses dyspnea and fatigue. She is off BiPAP. Wants to s it up. No chest pain. Reason For Visit: BILATERIAL PNEUMONIA, HYPOXEMIA, ATRIAL FLUTTER, Physical Exam Vital Signs: Temp Pulse Resp BP Pulse Ox 98.4 F 73 17 130/51 H 87 L 03/03/20 08:19 03/03/20 08:07 03/03/20 08:07 03/03/20 08:00 03/03/20 08:18 Intake & Output 03/02/20 03/03/20 03/04/20 06:59 06:59 06:59 Intake Total 1110 1002 Output Total 2040 2150 Balance -930 -1148 Weight 137 kg 135.7 kg General appearance: PRESENT: no acute distress, cooperative, morbidly obese, well-developed, well-nourished Head exam: PRESENT: atraumatic, normocephalic Eye exam: PRESENT: conjunctiva pink, EOMI Mouth exam: PRESENT: moist Respiratory exam: PRESENT: crackles, decreased breath sounds, prolonged expiratory phas, symmetrical Cardiovascular exam: PRESENT: RRR, +S1, +S2, systolic murmur Pulses: PRESENT: normal radial pulses GI/Abdominal exam: PRESENT: soft Rectal exam: PRESENT: deferred Neurological exam: PRESENT: alert, awake, oriented to person, oriented to place Psychiatric exam: PRESENT: appropriate affect Skin exam: PRESENT: dry, intact, pallor Results Laboratory Results: 03/02/20 06:11 03/02/20 06:11 03/02/20 09:35 Urine Color YELLOW Urine Appearance CLOUDY Urine pH 5.0 Ur Specific [place] 1.010 Urine Protein NEGATIVE Urine Glucose (UA) NEGATIVE Urine Ketones NEGATIVE Urine Blood SMALL H Urine Nitrite NEGATIVE Ur Leukocyte Esterase TRACE H Urine WBC (Auto) 2 Urine RBC (Auto) 3 02/28/20 10:49 Blood Blood Culture (PCR) - Final Staphylococcus Species 02/28/20 09:42 Blood Blood Culture (PCR) - Final Staphylococcus Species 02/28/20 02/28/20 02/28/20 09:42 09:42 18:24 Creatine Kinase 57 Troponin I 0.070 1.860 NT-Pro-B Natriuret Pep 3980 H 12/12/20 12/12/20 12/12/20 00:50 07:01 08:39 Creatine Kinase Troponin I 2.100 Cancelled 1.470 NT-Pro-B Natriuret Pep Impressions: Venous Doppler Study 02/28/20 00:00 IMPRESSION: NO EVIDENCE DVT OR SVT IN THE RIGHT LEG. Chest X-Ray 02/28/20 09:46 IMPRESSION: Cardiomegaly and bilateral basilar predominant pleural and parenchy mal opacities. Clinical correlation for signs and symptoms of CHF is recommended. Assessment & Plan - Diagnosis (1) Bilateral pneumonia Qualifiers: Pneumonia type: due to unspecified organism Lung location: lower lobe of lung Qualified Code(s): J18.9 - Pneumonia, unspecified organism Is this a current diagnosis for this admission?: Yes Plan: Pneumonia Patient is receiving intravenous antibiotics Noninvasive respiratory support Respiratory status still appears to be tenuous (2) Coronary artery disease Qualifiers: Coronary Disease-Associated Artery/Lesion type: bypass graft Is this a current diagnosis for this admission?: Yes Plan: Guideline directed medical therapy Continue atorvastatin [id number] carvedilol With LV dysfunction ischemic evaluation is ideally necessary. However this can be pursued later as an outpatient. Preferably pursue noninvasive imaging as with CKD and contrast this could precipitate requirement for renal replacement (3) Atrial fibrillation Qualifiers: Atrial fibrillation type: unspecified Qualified Code(s): I48.91 - Unspecified atrial fibrillation Is this a current diagnosis for this admission?: Yes Plan: By telemetry it appears that she is maintaining sinus rhythm with a left bundle branch block Increased risk of stroke Systemic anticoagulation is necessary. (4) NSTEMI (non-ST elevated myocardial infarction) Is this a current diagnosis for this admission?: Yes Plan: Non-ST segment elevation myocardial infarction This is occurred in the setting of respiratory distress and pneumonia with heart failure exacerbation No ongoing chest pain Left ventricular function is depressed and is estimated at about 30% However patient has multiple medical problems and with tenuous respiratory status and with absent chest pain and based on patient discussion medical therapy is being opted for. Would recommend aspirin 81 mg daily Can discontinue enoxaparin Continue systemic anticoagulation orally as indicated for atrial fibrillation. Continue carvedilol 25 mg twice daily Continue atorvastatin 40 mg daily (5) CHF (congestive heart failure), NYHA class II Qualifiers: Congestive heart failure type: systolic Congestive heart failure chronicity: chronic Qualified Code(s): I50.22 - Chronic systolic (congestive) heart failure Is this a current diagnosis for this admission?: Yes Plan: Acute decompensated congestive heart failure Continue with the plan to diurese. We will have to monitor renal function She probably has underlying CKD Legs are improved in terms of edema. Respiratory status is tenuous but is multifactorial on account of respiratory infection as well.
[2020-03-03] MEDS: FUROSEMIDE INJ/PF 100 MG/10 ML SDV IV SCH ×2 (09:30→17:10)
[2020-03-03] MEDS: INSULIN LISPRO 100 UNIT/ML 3 ML VIAL SUBCUT SCH ×7 (09:31→21:35)
[2020-03-03] MEDS: CLONIDINE HCL 0.2 MG TABLET PO SCH ×2 (09:32→21:34)
[2020-03-03] MEDS: CARVEDILOL 12.5 MG TABLET PO SCH ×2 (09:32→21:35)
[2020-03-03] MEDS: APIXABAN 2.5 MG TABLET PO SCH ×2 (09:32→17:14)
[2020-03-03] MEDS: CLOPIDOGREL BISULFATE 75 MG TABLET PO SCH (09:32)
[2020-03-03] MEDS: LISINOPRIL 10 MG TABLET PO SCH (09:32)
[2020-03-03 11:09] LABS: ANION GAP 9 (5-19); BLOOD UREA NITROGEN 67 mg/dL (7-20); CALCIUM 9.5 mg/dL (8.4-10.2); CARBON DIOXIDE 21 mmol/L (22-30); CHLORIDE 110 mmol/L (98-107); GLUCOSE 181 mg/dL (75-110); POTASSIUM 4.8 mmol/L (3.6-5.0)
--- NOTE | 2020-03-03 14:59 | PDOC PROGRESS REPORT ---
Subjective Date:: 03/03/20 Subjective:: Patient feels that her breathing is improved. She denies any chest pain on enco unter today. Denies any nausea vomiting. Had discussion with patient's daughter and facility worker who is at bedside. 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 Reason For Visit: BILATERIAL PNEUMONIA, HYPOXEMIA, ATRIAL FLUTTER, Physical Exam Vital Signs: Temp Pulse Resp BP Pulse Ox 98.2 F 85 18 140/34 H 92 03/03/20 11:36 03/03/20 14:12 03/03/20 14:12 03/03/20 11:36 03/03/20 14:12 Intake & Output 03/02/20 03/03/20 03/04/20 06:59 06:59 06:59 Intake Total 1110 1002 Output Total 2040 2150 Balance -930 -1148 Weight 137 kg 135.7 kg General appearance: PRESENT: no acute distress, cooperative Neck exam: ABSENT: JVD Respiratory exam: PRESENT: crackles, symmetrical, unlabored. ABSENT: accessory muscle use, tachypnea, wheezes Cardiovascular exam: PRESENT: RRR, +S1, +S2. ABSENT: tachycardia GI/Abdominal exam: PRESENT: soft. ABSENT: rebound, rigid, tenderness Extremities exam: PRESENT: pedal edema Neurological exam: PRESENT: alert, awake, oriented to person, oriented to place, oriented to time, oriented to situation Psychiatric exam: ABSENT: agitated, anxious Focused psych exam: ABSENT: pressured speech Skin exam: ABSENT: jaundice Results Laboratory Results: 03/02/20 06:11 03/03/20 10:07 03/03/20 10:07 Sodium 139.8 Potassium 4.8 Chloride 110 H Carbon Dioxide 21 L Anion Gap 9 BUN 67 H Creatinine 1.99 H Est GFR ( Amer) 29 L Glucose 181 H Calcium 9.5 Magnesium 2.3 02/28/20 10:49 Blood Blood Culture (PCR) - Final Staphylococcus Species 02/28/20 10:49 Blood Blood Culture - Final Staphylococcus Capitis 02/28/20 09:42 Blood Blood Culture (PCR) - Final Staphylococcus Species 02/28/20 09:42 Blood Blood Culture - Final Staphylococcus Capitis 02/28/20 02/28/20 02/28/20 09:42 09:42 18:24 Creatine Kinase 57 Troponin I 0.070 1.860 NT-Pro-B Natriuret Pep 3980 H 02/29/20 02/29/20 02/29/20 00:50 07:01 08:39 Creatine Kinase Troponin I 2.100 Cancelled 1.470 NT-Pro-B Natriuret Pep Impressions: Venous Doppler Study 02/28/20 00:00 IMPRESSION: NO EVIDENCE DVT OR SVT IN THE RIGHT LEG. Chest X-Ray 02/28/20 09:46 IMPRESSION: Cardiomegaly and bilateral basilar predominant pleural and parenchymal opacities. Clinical correlation for signs and symptoms of CHF is recommended. Assessment and Plan - Diagnosis (1) Acute respiratory failure with hypoxia Is this a current diagnosis for this admission?: Yes Plan: Improved today. She was saturating 100% on 4 L. We have been able to wean down her nasal cannula to 1.5 L. We will see if we can wean her off gradually. (2) New onset of congestive heart failure Is this a current diagnosis for this admission?: Yes Plan: Acute combined systolic and diastolic heart failure. Echocardiogram showing EF of 35%, grade 2 diastolic dysfunction, severely dilated left atrium. Continue diuresis Lasix 80 IV twice a day. Monitor renal function and electrolytes. Continue Coreg and lisinopril. Cardiology following (3) NSTEMI (non-ST elevated myocardial infarction) Is this a current diagnosis for this admission?: Yes Plan: hx of CAD with CABG quadruple 10 years ago troponin 0.07>1.8>2.1>1.47 EKG showing left bundle branch block Associated with CHF. Cardiology following. Medical management only is being pursued due to patient's poor candidacy for [facility] given impaired renal function and age. Continue Plavix, atorvastatin and beta-helio. (4) Coag negative Staphylococcus bacteremia Is this a current diagnosis for this admission?: Yes Plan: Etiology unknown. All 4 blood culture bottles on admission were positive with Staphylococcus capitis. She has not had any invasive catheters. Repeat blood cultures are negative. Currently on ceftriaxone. Continue antibiotics for 2 more days. (5) Chronic renal insufficiency, stage III (moderate) Qualifiers: Chronic kidney disease stage 3 subtype: stage 3b (GFR 30-44) Qualified Code(s): N18.32 - Chronic kidney disease, stage 3b Is this a current diagnosis for this admission?: Yes Plan: Monitor renal function while on Lasix. (6) Atrial fibrillation Qualifiers: Atrial fibrillation type: unspecified Qualified Code(s): I48.91 - Unspecif ied atrial fibrillation Is this a current diagnosis for this admission?: Yes Plan: Undetermined if paroxysmal versus persistent. Continue beta-helio and renally dosed Eliquis. (7) Elevated d-dimer Is this a current diagnosis for this admission?: Yes (8) Type 2 diabetes mellitus Qualifiers: Diabetes mellitus lobsterman insulin use: with senior living use Diabetes mellitus complication status: with kidney complications Diabetes mellitus complication detail: with chronic kidney disease Chronic kidney disease stage: stage 3 (moderate) Is this a current diagnosis for this admission?: Yes Plan: On lantus 44 u sq daily lispro 5 u with meals instead of 15 units Accucheck ACHS, SSI, hypoglycemia protocol - Time Time Spent with patient: 15-24 minutes Anticipated Discharge Disposition: Home, Self Care Anticipated Discharge Timeframe: within 48 hours
[2020-03-03] MEDS: CEFTRIAXONE 2 GM/D5W RTU 2 GM/50 ML RTUPB IV SCH (17:11)
[2020-03-03] MEDS: MELATONIN 5 MG TABLET PO SCH (21:35)
[2020-03-03] MEDS: ATORVASTATIN CALCIUM 40 MG TABLET PO SCH (21:35)
[2020-03-03] MEDS: INSULIN GLARGINE,HUM.REC.ANLOG 1,000 UNIT/10 ML VIAL SUBCUT SCH (21:36)
[2020-03-04 02:12] LABS: APPEARANCE,URINE CLEAR; BILIRUBIN,URINE NEGATIVE (NEGATIVE); COLOR,URINE YELLOW; GLUCOSE, URINE NEGATIVE (NEGATIVE); KETONES,URINE NEGATIVE (NEGATIVE); LEUKOCYTE ESTERASE,URINE NEGATIVE (NEGATIVE); NITRITE,URINE NEGATIVE (NEGATIVE); PROTEIN,URINE NEGATIVE (NEGATIVE); UROBILINOGEN,URINE NEGATIVE mg/dL (<2.0)
[2020-03-04 07:39] LABS: HEMATOCRIT 28.8 % (36.0-47.0); HEMOGLOBIN 9.4 g/dL (12.0-15.5); MEAN CORPUSCULAR HEMOGLOBIN 25.3 pg (27.0-33.4); MEAN CORPUSCULAR HGB CONC 32.5 g/dL (32.0-36.0); MEAN CORPUSCULAR VOLUME 78 fl (80-97); PLATELET COUNT 160 10^3/uL (150-450); RED BLOOD COUNT 3.71 10^6/uL (3.72-5.28); RED CELL DISTRIBUTION WIDTH 18.1 % (11.5-14.0); WHITE BLOOD COUNT 11.8 10^3/uL (4.0-10.5)
[2020-03-04 08:13] LABS: ANION GAP 7 (5-19); BLOOD UREA NITROGEN 66 mg/dL (7-20); CALCIUM 9.5 mg/dL (8.4-10.2); CARBON DIOXIDE 26 mmol/L (22-30); CHLORIDE 110 mmol/L (98-107); GLUCOSE 148 mg/dL (75-110); POTASSIUM 4.5 mmol/L (3.6-5.0)
[2020-03-04] MEDS: INSULIN LISPRO 100 UNIT/ML 3 ML VIAL SUBCUT SCH ×6 (08:42→16:30)
[2020-03-04] MEDS: IPRATROPIUM/ALBUTEROL 0.5-2.5 MG/3 ML AMPUL NEB SCH ×2 (09:40→13:23)
[2020-03-04] MEDS: FUROSEMIDE INJ/PF 100 MG/10 ML SDV IV SCH (10:29)
[2020-03-04] MEDS: CLONIDINE HCL 0.2 MG TABLET PO SCH (10:30)
[2020-03-04] MEDS: LISINOPRIL 10 MG TABLET PO SCH (10:30)
[2020-03-04] MEDS: CARVEDILOL 12.5 MG TABLET PO SCH (10:30)
[2020-03-04] MEDS: APIXABAN 2.5 MG TABLET PO SCH (10:32)
[2020-03-04] MEDS: CLOPIDOGREL BISULFATE 75 MG TABLET PO SCH (10:32)
--- NOTE | 2020-03-04 11:14 | PDOC DISCHARGE SUMMARY ---
Impression - Admit/DC Date/PCP Admission Date/Primary Care Provider: 02/28/20 14:39 MIQUEL DESOUZA MD Discharge Date: 03/04/20 - Discharge Diagnosis (1) Acute respiratory failure with hypoxia Is this a current diagnosis for this admission?: Yes (2) New onset of congestive heart failure Is this a current diagnosis for this admission?: Yes (3) NSTEMI (non-ST elevated myocardial infarction) Is this a current diagnosis for this admission?: Yes (4) Coag negative Staphylococcus bacteremia Is this a current diagnosis for this admission?: Yes (5) Chronic renal insufficiency, stage III (moderate) Is this a current diagnosis for this admission?: Yes (6) Atrial fibrillation Is this a current diagnosis for this admission?: Yes (7) Elevated d-dimer Is this a current diagnosis for this admission?: Yes (8) Type 2 diabetes mellitus Is this a current diagnosis for this admission?: Yes - Additional Information Resuscitation Status: Full Code Discharge Diet: Cardiac, Diabetic Discharge Activity: Activity As Tolerated, Balance Activity w/Rest Referrals: MIQUEL DESOUZA MD [Primary Care Provider] - (*office stated that they will call patient with appointment*) KEENAN LOPEZ MD [ACTIVE STAFF] - 03/16/20 11:30 am GRAY PATEL MD [ACTIVE STAFF] - 03/10/20 8:30 am Prescriptions: Apixaban [Eliquis 2.5 mg Tablet] 2.5 mg PO BID #60 tablet Furosemide [Lasix 40 mg Tablet] 40 mg PO BID #60 tablet Home Medications: Atorvastatin Calcium [Lipitor 40 mg Tablet] 40 mg PO QHS 02/28/20 Carvedilol 25 mg PO BID 02/28/20 Clonidine HCl [Catapres 0.2 mg Tablet] 0.2 mg PO Q8 02/28/20 Clopidogrel Bisulfate [Plavix 75 mg Tablet] 75 mg PO DAILY 02/28/20 Insulin Glargine,Hum.rec.anlog [Lantus Insulin 100 Unit/mL Insulin Pen] 44 units SQ DAILY 02/28/20 Lisinopril [Zestril] 40 mg PO DAILY 02/28/20 Paricalcitol [Zemplar 1 Mcg Capsule] 1 mcg PO DAILY 02/28/20 Apixaban [Eliquis 2.5 mg Tablet] 2.5 mg PO BID #60 tablet 03/04/20 Furosemide [Lasix 40 mg Tablet] 40 mg PO BID #60 tablet 03/04/20 Insulin Lispro [Humalog Kwikpen U-100] 8 unit SQ BID #0 03/04/20 History of Present Illiness History of Present Illness: According to admitting provider: CELSO KENNEDY is a 84 year old female, PMH of Type 2 DM, HTN, HLD, Quadruple bypass who came in the ED due to shortness of breath. The patient was apparently feeling well yesterday morning then last night she noted SOB, which persisted until this morning. She denied any fever, cough, or chest pain, no palpitations. EMS was called and it was noted that her O2 sat was 60% , she was started on CPAP by EMS. In the ED her sats were noted to be low 80s on CPAP hence she was put on BIpap 100% FIO2 and her marily improved to 99%. BP in the ED was 145/59, HR 108, RR 25. CBC showed WBC 12.5, Hgb 9.9, plt 235. CMP showed normal sodium and potassium. crea 2.1 which is close to her baseline. CXR showed cardiomegaly and bibasilar opacities. BNP 3980. Rapid COVID negative. Hospitalist service called for further management. Hospital Course Hospital Course: (1) Acute respiratory failure with hypoxia Is this a current diagnosis for this admission?: Yes Plan: Initially presented hypoxic requiring oxygen supplementation due to congestive heart failure. However patient has been weaned off oxygen. Today she is on room air saturating at 96%. 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 (2) New onset of congestive heart failure Is this a current diagnosis for this admission?: Yes Plan: Acute combined systolic and diastolic heart failure. Echocardiogram showing EF of 35%, grade 2 diastolic dysfunction, severely dilated left atrium. Diuresed with Lasix 80 IV twice a day effectively while in the hospital. Have discussed with cardiology who recommends discharging patient on Lasix 40 mg twice daily p.o. Continue Coreg and lisinopril. Cardiology following Nifedipine and sodium bicarbonate discontinued due to systolic failure. (3) NSTEMI (non-ST elevated myocardial infarction) Is this a current diagnosis for this admission?: Yes Plan: hx of CAD with CABG quadruple 10 years ago troponin 0.07>1.8>2.1>1.47 EKG showing left bundle branch block Associated with CHF. Cardiology evaluated and recommended medical management only due to patient's poor candidacy for [facility] given impaired renal function and age. Continue Plavix, atorvastatin and beta-helio. (4) Coag negative Staphylococcus bacteremia Is this a current diagnosis for this admission?: Yes Plan: Etiology unknown. All 4 blood culture bottles on admission were positive with Staphylococcus capitis. She has not had any invasive catheters. Repeat blood cultures are negative at 72 hours. Patient has completed 6 days of ceftriaxone today. No need for further ABX at this time. (5) Chronic renal insufficiency, stage III (moderate) Qualifiers: Chronic kidney disease stage 3 subtype: stage 3b (GFR 30-44) Qualified Code(s): N18.32 - Chronic kidney disease, stage 3b Is this a current diagnosis for this admission?: Yes Plan: Renal function is at baseline. Patient to follow-up with market investigator Dr. Desouza. (6) Atrial fibrillation Qualifiers: Atrial fibrillation type: unspecified Qualified Code(s): I48.91 - Unspecified atrial fibrillation Is this a current diagnosis for this admission?: Yes Plan: Undetermined if paroxysmal versus persistent. Continue beta-helio and reduced dosed Eliquis given age and renal failure. (7) Elevated d-dimer Is this a current diagnosis for this admission?: Yes (8) Type 2 diabetes mellitus Qualifiers: Diabetes mellitus mcfp insulin use: with mcfp use Diabetes mellitus complication status: with kidney complications Diabetes mellitus comp lication detail: with chronic kidney disease Chronic kidney disease stage: stage 3 (moderate) Is this a current diagnosis for this admission?: Yes Plan: On lantus 44 u sq daily Advised patient and patient's daughter to cut down patient's Humalog dose to 8 units before breakfast and dinner. She reports she eats twice a day when at home. She should monitor for hypoglycemia or hyperglycemia. Patient has a medical condition that requires positioning of the body in ways not feasible with ordinary bed so as such, we will try to get her a hospital bed. Physical Exam Vital Signs: Temp Pulse Resp BP Pulse Ox 98.9 F 74 15 149/51 H 97 03/04/20 07:34 03/04/20 07:34 03/04/20 07:34 03/04/20 07:34 03/04/20 07:34 Intake & Output 03/03/20 03/04/20 03/05/20 06:59 06:59 06:59 Intake Total 1002 310 Output Total 2156 1850 Balance -1148 -1540 Weight 135.7 kg 131.6 kg General appearance: PRESENT: no acute distress, cooperative Neck exam: ABSENT: JVD Respiratory exam: PRESENT: clear to auscultation klaudia, unlabored. ABSENT: tachypnea, wheezes Cardiovascular exam: PRESENT: +S1, +S2. ABSENT: tachycardia GI/Abdominal exam: PRESENT: soft. ABSENT: tenderness Extremities exam: PRESENT: other - Unilateral amputee Neurological exam: PRESENT: alert, awake, oriented to person, oriented to place Results Laboratory Results: WBC 11.8 10^3/uL (4.0-10.5) H 03/04/20 06:13 RBC 3.71 10^6/uL (3.72-5.28) L 03/04/20 06:13 Hgb 9.4 g/dL (12.0-15.5) L 03/04/20 06:13 Hct 28.8 % (36.0-47.0) L 03/04/20 06:13 MCV 78 fl (80-97) L 03/04/20 06:13 MCH 25.3 pg (27.0-33.4) L 03/04/20 06:13 MCHC 32.5 g/dL (32.0-36.0) 03/04/20 06:13 RDW 18.1 % (11.5-14.0) H 03/04/20 06:13 Plt Count 160 10^3/uL (150-450) 03/04/20 06:13 Lymph % (Auto) 17.8 % (13-45) 03/02/20 06:11 [place] % (Auto) 7.9 % (3-13) 03/02/20 06:11 Eos % (Auto) 1.1 % (0-6) 03/02/20 06:11 Baso % (Auto) 0.3 % (0-2) 03/02/20 06:11 Absolute Neuts (auto) 7.6 10^3/uL (1.7-8.2) 03/02/20 06:11 Absolute Lymphs (auto) 1.9 10^3/uL (0.5-4.7) 03/02/20 06:11 Absolute Monos (auto) 0.8 10^3/uL (0.1-1.4) 03/02/20 06:11 Absolute Eos (auto) 0.1 10^3/uL (0.0-0.6) 03/02/20 06:11 Absolute Basos (auto) 0.0 10^3/uL (0.0-0.2) 03/02/20 06:11 Seg Neutrophils % 72.9 % (42-78) 03/02/20 06:11 D-Dimer 3.85 ug/mL (0.00-0.50) H 02/28/20 09:42 Carbonic Acid 1.23 mmol/L (1.05-1.35) 02/28/20 09:42 HCO3/H2CO3 Ratio 16:1 02/28/20 09:42 ABG pH 7.33 (7.35-7.45) L 02/28/20 09:42 ABG pCO2 40.8 mmHg (35-45) 02/28/20 09:42 ABG pO2 88.2 mmHg (80-100) 02/28/20 09:42 ABG HCO3 20.8 mmol/L (20-24) 02/28/20 09:42 ABG Total CO2 22.0 mmol/L (21-25) 02/28/20 09:42 ABG O2 Saturation 96.1 % (94-98) 02/28/20 09:42 ABG Base Excess -4.9 mmol/L 02/28/20 09:42 FiO2 60% 02/28/20 09:42 Sodium 143.2 mmol/L (137-145) 03/04/20 06:13 Potassium 4.5 mmol/L (3.6-5.0) 03/04/20 06:13 Chloride 110 mmol/L (98-107) H 03/04/20 06:13 Carbon Dioxide 26 mmol/L (22-30) 03/04/20 06:13 Anion Gap 7 (5-19) 03/04/20 06:13 BUN 66 mg/dL (7-20) H 03/04/20 06:13 Creatinine 2.08 mg/dL (0.52-1.25) H 03/04/20 06:13 Est GFR ( Amer) 27 (>60) L 03/04/20 06:13 Est GFR (Non-Af Amer) Cancelled 02/29/20 07:01 Est GFR (MDRD) Non-Af 23 (>60) L 03/04/20 06:13 Glucose 148 mg/dL (75-110) H 03/04/20 06:13 POC Glucose 175 mg/dL (70-110) H 03/04/20 07:35 Hemoglobin A1c % 5.5 % (4.7-6.0) 03/04/20 06:13 Lactic Acid 3.1 mmol/L (0.7-2.1) H 02/28/20 09:42 Calcium 9.5 mg/dL (8.4-10.2) 03/04/20 06:13 Magnesium 2.3 mg/dL (1.6-2.3) 03/04/20 06:13 Ferritin 524.00 ng/mL (11.1-264.0) H 02/28/20 09:42 Total Bilirubin 0.7 mg/dL (0.2-1.3) 03/02/20 06:11 Direct Bilirubin 0.3 mg/dL (0.0-0.4) 03/02/20 06:11 Neonat Total Bilirubin Not Reportable 03/02/20 06:11 Neonat Direct Bilirubin Not Reportable 03/02/20 06:11 Neonat Indirect Bili Not Reportable 03/02/20 06:11 AST 54 U/L (14-36) H 03/02/20 06:11 ALT 23 U/L (<35) 03/02/20 06:11 Alkaline Phosphatase 58 U/L (38-126) 03/02/20 06:11 Creatine Kinase 57 U/L (30-135) 02/28/20 09:42 Troponin I 1.470 ng/mL 02/29/20 08:39 C-Reactive Protein < 5.0 mg/L (<10.0) 02/28/20 09:42 NT-Pro-B Natriuret Pep 3980 pg/mL (<450) H 02/28/20 09:42 Total Protein 6.6 g/dL (6.3-8.2) 03/02/20 06:11 Albumin 2.9 g/dL (3.5-5.0) L 03/02/20 06:11 Triglycerides 109 mg/dL (<150) 02/29/20 08:39 Cholesterol 126.76 mg/dL (0-200) 02/29/20 08:39 LDL Cholesterol Direct 49 mg/dL (<100) 02/29/20 08:39 VLDL Cholesterol 22.0 mg/dL (10-31) 02/29/20 08:39 VLDL Cholesterol, Calc Cancelled 02/29/20 07:01 HDL Cholesterol 42 mg/dL (>40) 02/29/20 08:39 EGFR Cancelled 02/29/20 07:01 Procalcitonin 0.13 ng/mL (0.00-0.08) H 02/28/20 09:42 TSH 0.41 uIU/mL (0.47-4.68) L 02/28/20 18:24 Free T4 1.35 ng/dL (0.78-2.19) 02/29/20 08:39 Free T3 pg/mL 2.16 pg/mL (2.77-5.27) L 02/29/20 08:39 Urine Color YELLOW 03/04/20 01:52 Urine Appearance CLEAR 03/04/20 01:52 Urine pH 5.0 (5.0-9.0) 03/04/20 01:52 Ur Specific [place] 1.010 03/04/20 01:52 Urine Protein NEGATIVE mg/dL (NEGATIVE) 03/04/20 01:52 Urine Glucose (UA) NEGATIVE mg/dL (NEGATIVE) 03/04/20 01:52 Urine Ketones NEGATIVE mg/dL (NEGATIVE) 03/04/20 01:52 Urine Blood NEGATIVE (NEGATIVE) 03/04/20 01:52 Urine Nitrite NEGATIVE (NEGATIVE) 03/04/20 01:52 Urine Bilirubin NEGATIVE (NEGATIVE) 03/04/20 01:52 Urine Urobilinogen NEGATIVE mg/dL (<2.0) 03/04/20 01:52 Ur Leukocyte Esterase NEGATIVE (NEGATIVE) 03/04/20 01:52 Urine WBC (Auto) 0 /HPF 03/04/20 01:52 Urine RBC (Auto) 0 /HPF 03/04/20 01:52 U Hyaline Cast (Auto) 4 /LPF 03/02/20 09:35 Squamous Epi Cells Auto <1 /HPF 03/02/20 09:35 Urine Mucus (Auto) RARE /LPF 03/04/20 01:52 Urine Ascorbic Acid NEGATIVE (NEGATIVE) 03/04/20 01:52 Influenza A (RT-PCR) NEGATIVE (NEGATIVE) 02/28/20 13:01 Influenza B (RT-PCR) NEGATIVE (NEGATIVE) 02/28/20 13:01 RSV (RT-PCR) NEGATIVE (NEGATIVE) 02/28/20 13:01 SARS-CoV-2 Rap RNA(RT-PCR) NEGATIVE (NEGATIVE) 02/28/20 13:01 02/28/20 02/28/20 02/29/20 09:42 18:24 00:50 Troponin I 0.070 1.860 2.100 NT-Pro-B Natriuret Pep 3980 H 02/29/20 02/29/20 07:01 08:39 Troponin I Cancelled 1.470 NT-Pro-B Natriuret Pep Impressions: Venous Doppler Study 02/28/20 00:00 IMPRESSION: NO EVIDENCE DVT OR SVT IN THE RIGHT LEG. Chest X-Ray 02/28/20 09:46 IMPRESSION: Cardiomegaly and bilateral basilar predominant pleural and parenchymal opacities. Clinical correlation for signs and symptoms of CHF is recommended. Plan Time Spent: Greater than 30 Minutes Stroke Is this a Stroke Patient?: No Acute Heart Failure Is this a Heart Failure Patient?: Yes Documentation of LVEF assessment?: Yes LVEF: LVEF Less Than or Equal to 35% Anticoagulant Therapy: Yes Discharged on Evidence-Based Beta Blockers: Yes Discharged on ARNI?: No-Document Contraindications Reason(s) not discharged on ARNI: LINDA Discharged on ARB?: No-document contraindications Reason(s) not Discharged on ARB: LINDA Discharged on ACEI?: Yes For LVEF <35%, discharged on Aldosterone Antagonist?: N/A (LVEF > or = 35%)
--- NOTE | 2020-03-04 15:44 | PDOC PROGRESS REPORT ---
Subjective Date:: 03/04/20 Subjective:: Patient was seen and examined. She ffels much better. Would like to go home. Off Face mask/ BIPAP Reason For Visit: BILATERIAL PNEUMONIA, HYPOXEMIA, ATRIAL FLUTTER, Physical Exam Vital Signs: Temp Pulse Resp BP Pulse Ox 99.1 F 83 16 163/45 H 94 03/04/20 12:07 03/04/20 14:00 03/04/20 13:23 03/04/20 12:07 03/04/20 13:23 Intake & Output 03/03/20 03/04/20 03/05/20 06:59 06:59 06:59 Intake Total 1002 310 260 Output Total 2150 1850 Balance -1148 -1540 260 Weight 135.7 kg 131.6 kg General appearance: PRESENT: cooperative, morbidly obese, well-developed, well- nourished Head exam: PRESENT: atraumatic, normocephalic Eye exam: PRESENT: conjunctiva pink, EOMI Mouth exam: PRESENT: moist Teeth exam: PRESENT: poor dentation Respiratory exam: PRESENT: decreased breath sounds, symmetrical, unlabored Cardiovascular exam: PRESENT: irregular rhythm, +S1, +S2 Pulses: PRESENT: normal radial pulses GI/Abdominal exam: PRESENT: soft Rectal exam: PRESENT: deferred Musculoskeletal exam: PRESENT: deformity - L BKA Neurological exam: PRESENT: alert, awake, oriented to person, oriented to place, oriented to time, oriented to situation Psychiatric exam: PRESENT: appropriate affect Skin exam: PRESENT: dry, intact, normal color Results Laboratory Results: 03/04/20 06:13 03/04/20 06:13 03/04/20 03/04/20 03/04/20 01:52 06:13 06:13 WBC 11.8 H RBC 3.71 L Hgb 9.4 L Hct 28.8 L MCV 78 L MCH 25.3 L MCHC 32.5 RDW 18.1 H Plt Count 160 Sodium 143.2 Potassium 4.5 Chloride 110 H Carbon Dioxide 26 Anion Gap 7 BUN 66 H Creatinine 2.08 H Est GFR ( Amer) 27 L Glucose 148 H Calcium 9.5 Magnesium 2.3 Urine Color YELLOW Urine Appearance CLEAR Urine pH 5.0 Ur Specific [place] 1.010 Urine Protein NEGATIVE Urine Glucose (UA) NEGATIVE Urine Ketones NEGATIVE Urine Blood NEGATIVE Urine Nitrite NEGATIVE Ur Leukocyte Esterase NEGATIVE Urine WBC (Auto) 0 Urine RBC (Auto) 0 02/28/20 10:49 Blood Blood Culture (PCR) - Final Staphylococcus Species 02/28/20 10:49 Blood Blood Culture - Final Staphylococcus Capitis 02/28/20 09:42 Blood Blood Culture (PCR) - Final Staphylococcus Species 02/28/20 09:42 Blood Blood Culture - Final Staphylococcus Capitis 02/28/20 02/28/20 02/28/20 09:42 09:42 18:24 Creatine Kinase 57 Troponin I 0.070 1.860 NT-Pro-B Natriuret Pep 3980 H 02/29/20 02/29/20 02/29/20 00:50 07:01 08:39 Creatine Kinase Troponin I 2.100 Cancelled 1.470 NT-Pro-B Natriuret Pep Impressions: Venous Doppler Study 02/28/20 00:00 IMPRESSION: NO EVIDENCE DVT OR SVT IN THE RIGHT LEG. Chest X-Ray 02/28/20 09:46 IMPRESSION: Cardiomegaly and bilateral basilar predominant pleural and parenchymal opacities. Clinical correlation for signs and symptoms of CHF is recommended. Assessment & Plan - Diagnosis (1) Bilateral pneumonia Qualifiers: Pneumonia type: due to unspecified organism Lung location: lower lobe of lung Qualified Code(s): J18.9 - Pneumonia, unspecified organism Is this a current diagnosis for this admission?: Yes Plan: Pneumonia Noninvasive respiratory support has been stopped Respiratory status much improved Abx (2) Coronary artery disease Qualifiers: Coronary Disease-Associated Artery/Lesion type: bypass graft Is this a current diagnosis for this admission?: Yes Plan: Guideline directed medical therapy Continue atorvastatin Continue carvedilol With LV dysfunction ischemic evaluation is ideally necessary. However this can be pursued later as an outpatient. Preferably pursue noninvasive imaging as with CKD and contrast this could precipitate requirement for renal replacement Will have to have higher threshold for cardiac cath given CKD (3) Atrial fibrillation Qualifiers: Atrial fibrillation type: unspecified Qualified Code(s): I48.91 - Unspecified atrial fibrillation Is this a current diagnosis for this admission?: Yes Plan: Increased risk of stroke Systemic anticoagulation is necessary. (4) NSTEMI (non-ST elevated myocardial infarction) Is this a current diagnosis for this admission?: Yes Plan: Non-ST segment elevation myocardial infarction This is occurred in the setting of respiratory distress and pneumonia with heart failure exacerbation No ongoing chest pain Left ventricular function is depressed and is estimated at about 30% However patient has multiple medical problems and with tenuous respiratory status and with absent chest pain and based on patient discussion medical therapy is being opted for. Continue Clopidogrel. Watch for bleeding Continue systemic anticoagulation orally as indicated for atrial fibrillation. Continue carvedilol 25 mg twice daily Continue atorvastatin 40 mg daily (5) CHF (congestive heart failure), NYHA class II Qualifiers: Congestive heart failure type: systolic Congestive heart failure chronicity : chronic Qualified Code(s): I50.22 - Chronic systolic (congestive) heart failure Is this a current diagnosis for this admission?: Yes Plan: Acute decompensated congestive heart failure LV dysfucntion EF ~30% Maintenance diuretic We will have to monitor renal function She probably has underlying CKD Legs are improved in terms of edema.
[2020-03-04] MEDS ORDERED: CEFTRIAXONE INJ 500 MG VIAL IM ONE (16:00)
[2020-03-04] MEDS ORDERED: LIDOCAINE HCL 1% INJ (FOR 500 MG VIAL) INJ ONE (16:00)
[2020-03-04 17:07] VITALS: BP 135/51
[2020-03-05] MEDS ORDERED: CEFTRIAXONE 2 GM/D5W RTU 2 GM/50 ML RTUPB IV ONE (15:00)
== END 2020-03-04 19:19 | disposition home health service (06) | DRG 280 ==
LOC: ER 09:25 → EH 14:39 → 3S 17:00
PROVIDERS: ADMIT Internal Medicine; ATTEND Internal Medicine
PROC: B24BZZZ Ultrasonography of Heart with Aorta (ICD-10-PCS; principal; 2020-02-28)
PROC: 5A09557 Assistance with Respiratory Ventilation, Greater than 96 Consecutive Hours, Continuous Positive Airway Pressure (ICD-10-PCS; 2020-02-28)
DX: I13.0 Hypertensive heart and chronic kidney disease with heart failure and stage 1 through stage 4 chronic kidney disease, or unspecified chronic kidney disease (principal); J96.01 Acute respiratory failure with hypoxia; I21.4 Non-ST elevation (NSTEMI) myocardial infarction; J18.9 Pneumonia, unspecified organism; I50.41 Acute combined systolic (congestive) and diastolic (congestive) heart failure; R78.81 Bacteremia; Z79.4 Long term (current) use of insulin; I48.0 Paroxysmal atrial fibrillation; E78.5 Hyperlipidemia, unspecified; E66.01 Morbid (severe) obesity due to excess calories; E11.22 Type 2 diabetes mellitus with diabetic chronic kidney disease; N18.32 Chronic kidney disease, stage 3b; B95.8 Unspecified staphylococcus as the cause of diseases classified elsewhere; I44.7 Left bundle-branch block, unspecified; D64.9 Anemia, unspecified; Z20.828 Contact with and (suspected) exposure to other viral communicable diseases; I25.2 Old myocardial infarction; Z79.899 Other long term (current) drug therapy; Z88.0 Allergy status to penicillin; Z95.1 Presence of aortocoronary bypass graft; Z89.512 Acquired absence of left leg below knee; Z99.3 Dependence on wheelchair
CPT/HCPCS: 36415; 71045; 80048; 80053; 80061; 81001; 82550; 82728; 82803; 82962; 83036; 83605; 83735; 83880; 84145; 84439; 84443; 84481; 84484; 85025; 85027; 85379; 86140; 87040; 87077; 87150; 87186; 93005; 93010; 93306; 93971; 94640; 94660; 99285; 0241U; C9803; J0456; J0696; J1650; J1815; J1940; J3490; J7060

== ENCOUNTER 2020-03-22 02:02 | Observation (INO) | payer MEDICARE, MEDICAID ==
[2020-03-22 05:03] LABS: ABSOLUTE EOSINOPHILS # (AUTO) 0.7 10^3/uL (0.0-0.6); ABSOLUTE LYMPHOCYTES (AUTO) 2.5 10^3/uL (0.5-4.7); ABSOLUTE MONOCYTES (AUTO) 0.7 10^3/uL (0.1-1.4); ABSOLUTE NEUT (AUTO) 4.8 10^3/uL (1.7-8.2); BASOPHILS % (AUTO) 0.5 % (0-2); EOSINOPHILS % (AUTO) 8.3 % (0-6); HEMATOCRIT 25.5 % (36.0-47.0); HEMOGLOBIN 8.2 g/dL (12.0-15.5); LYMPHOCYTES % (AUTO) 28.2 % (13-45); MEAN CORPUSCULAR HEMOGLOBIN 24.1 pg (27.0-33.4); MEAN CORPUSCULAR VOLUME 75 fl (80-97); MONOCYTES % (AUTO) 7.6 % (3-13); PLATELET COUNT 289 10^3/uL (150-450); RED BLOOD COUNT 3.38 10^6/uL (3.72-5.28); SEGMENTED NEUTROPHILS % (AUTO) 55.4 % (42-78); TOTAL CELLS COUNTED % (AUTO) 100 %; WHITE BLOOD COUNT 8.7 10^3/uL (4.0-10.5)
[2020-03-22 05:20] LABS: ALBUMIN 2.5 g/dL (3.5-5.0); ALKALINE PHOSPHATASE 86 U/L (38-126); ASPARTATE AMINO TRANSFERASE 44 U/L (14-36); BILIRUBIN,DIRECT 0.3 mg/dL (0.0-0.4); BILIRUBIN,TOTAL 0.5 mg/dL (0.2-1.3); BLOOD UREA NITROGEN 60 mg/dL (7-20); GLUCOSE 134 mg/dL (75-110); POTASSIUM 5.2 mmol/L (3.6-5.0); TOTAL PROTEIN 6.3 g/dL (6.3-8.2)
[2020-03-22 05:25] LABS: CARBON DIOXIDE 28 mmol/L (22-30); CHLORIDE 107 mmol/L (98-107)
[2020-03-22 05:55] LABS: ALCOHOL < 10 mg/dL (NONE DETECTED); ANION GAP 4 (5-19)
[2020-03-22 06:03] LABS: APPEARANCE,URINE CLEAR; BILIRUBIN,URINE NEGATIVE (NEGATIVE); COLOR,URINE YELLOW; GLUCOSE, URINE NEGATIVE (NEGATIVE); KETONES,URINE NEGATIVE (NEGATIVE); LEUKOCYTE ESTERASE,URINE NEGATIVE (NEGATIVE); NITRITE,URINE NEGATIVE (NEGATIVE); PROTEIN,URINE NEGATIVE (NEGATIVE); URINE SPECIFIC GRAVITY 1.011; UROBILINOGEN,URINE NEGATIVE mg/dL (<2.0)
[2020-03-22 06:35] LABS: URINE AMPHETAMINES SCREEN NEGATIVE; URINE BARBITURATES SCREEN NEGATIVE; URINE BENZODIAZEPINES SCREEN NEGATIVE; URINE COCAINE SCREEN NEGATIVE; URINE MARIJUANA (THC) SCREEN NEGATIVE; URINE METHADONE SCREEN NEGATIVE; URINE PHENCYCLIDINE SCREEN NEGATIVE
--- NOTE | 2020-03-22 06:37 | ER Document Report ---
ED General - General Chief Complaint: Altered Mental Status Stated Complaint: WEAKNESS,ALTERED MENTAL STATUS Time Seen by Provider: 03/22/20 06:08 Primary Care Provider: GRAY PATEL MD [Primary Care Provider] - Follow up as needed TRAVEL OUTSIDE OF THE [place] IN LAST 30 DAYS: No - HPI Notes: Chief complaint: Altered mental status History of present illness: 84-year-old female followed by Dr. Gray Patel with multiple chronic medical problems including diabetes mellitus type 2, obesity, CHF, CAD and stage III chronic kidney disease with anemia of chronic disease with discharge from the hospital here approximately 2 weeks ago after admission for treatment of pneumonia and a non-STEMI now being returned by EMS after daughter noted that she had some altered mental status overnight. Daughter states that she was given her usual bedtime medications and her fingerstick blood glucose was checked with a value of 176. At that point the patient star michele asking for relatives who are not currently in the home and also seem to be disoriented as to where she was and what day it was. This lasted for approximately half an hour and then seemed to improve. No focal weakness observed during this time. No complaint of headache and no fever. EMS was [facility] and patient was transported here. She has been resting comfortably since arrival here and no longer seems to be confused. Daughter reports there have been no recent changes in her medications. The patient has not been running a fever. She does not have much appetite and has not been eating and drinking well. There is been no complaint of dysuria. No vomiting. No cough or shortness of breath no complaint of chest pain. - Related Data Allergies/Adverse Reactions: Penicillins Allergy (Verified 02/28/20 09:49) Past Medical History - General Information source: Patient, Relative, [facility] Records - Social History Smoking Status: Never Smoker Frequency of alcohol use: None Drug Abuse: None Lives with: Family Family History: Reviewed & Not Pertinent - Past Medical History Cardiac Medical History: Reports: Hx Congestive Heart Failure, Hx Coronary Artery Disease, Hx Heart Attack, Hx Hypercholesterolemia, Hx Hypertension Pulmonary Medical History: Reports: None Neurological Medical History: Reports: None Endocrine Medical History: Reports: Hx Diabetes Mellitus Type 2 Renal/ Medical History: Reports: Hx Renal Insufficiency Malignancy Medical History: Reports: None GI Medical History: Reports: None Musculoskeletal Medical History: Reports None Psychiatric Medical History: Denies: Hx Depression Past Surgical History: Reports: Hx Cardiac Surgery - CABG X4 in 1999, Hx Orthopedic Surgery - 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 Review of Systems - Review of Systems Notes: Constitutional: Negative for fever. HENT: Negative for sore throat. Eyes: Negative for visual changes. Cardiovascular: Negative for chest pain. Respiratory: Negative for shortness of breath. Gastrointestinal: Negative for abdominal pain, vomiting or diarrhea. Genitourinary: Negative for dysuria. Musculoskeletal: Negative for back pain. Skin: Patient has superficial ulcerations over the left heel in the sacral area. Neurological: Negative for headaches, focal weakness or numbness. 10 point ROS negative except as marked above and in HPI. Physical Exam - Vital signs Vitals: Temp Pulse BP Pulse Ox 97.8 F 70 116/42 L 99 03/22/20 02:41 03/22/20 02:41 03/22/20 02:41 03/22/20 02:41 - Notes Notes: GENERAL: Mildly obese elderly female appearing in no acute distress. SKIN: Good turgor. Superficial ulceration over the right heel without drainage. Minimal tenderness. Stage II decubitus of the sacral area which appears clean without drainage. HEAD: Normocephalic atraumatic. EYES: Bilateral arcus senilis. PERRLA. EOMI. Conjunctivae and sclerae clear. EARS: CANALS AND TMS CLEAR. NOSE: CLEAR. MOUTH: Moist mucosa. Good dentition. No stridor or edema. No drooling. NECK: Supple. No masses or thyromegaly. No adenopathy. Carotids 2+ without bruits. No JVD. BACK: Symmetrical without tenderness. CHEST: Respirations unlabored. Breath sounds clear and symmetrical. HEART: Regular rhythm. No murmur gallop or rub. ABDOMEN: Soft nontender without masses, organomegaly or rebound. Bowel sounds normally active. No bruits. GENITALIA: Deferred. EXTREMITIES: BKA left lower extremity. No edema. No calf tenderness. Cap refill less than 1.5 seconds. Dorsalis pedis and posterior tibial pulses 3+ and symmetrical. NEUROLOGICAL: GCS 13. Patient is appropriately oriented to person and place but not to date. Eyes are closed and she opens these on command. 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 Alert and oriented x3. Fluent speech. Cranial nerves II through XII intact. Sensory, motor and cerebellar normal. Normal tone. PSYCHIATRIC: Appropriate affect. Course - Re-evaluation Re-evalutation: 03/22/20 10:06 Patient looks like she may be mildly dehydrated clinically. She has a superficial ulceration on her heel and small sacral decubitus. Neither appear to be significantly infected. Her head CT showed no acute changes. Her creatinine is bumped slightly from her value at discharge. Her chest x-ray and urine were unremarkable. I am giving her some IV normal saline here and I have discussed the case with the on-call hospitalist Dr. Tran who will bring her in for observation. Findings, clinical impression and plan of treatment have been discussed with patient/family. Understanding of current findings and recommendations has been acknowledged by them and there is agreement regarding disposition and follow-up. - Vital Signs Vital signs: Temp Pulse Resp BP Pulse Ox 97.8 F 70 18 99/47 L 98 03/22/20 02:41 03/22/20 02:41 03/22/20 05:24 03/22/20 05:24 03/22/20 05:24 - Laboratory Results Result Diagrams: 03/22/20 04:37 03/22/20 04:37 Laboratory Results Interpreted: 03/22/20 03/22/20 03/22/20 04:37 04:37 08:47 RBC 3.38 L Hgb 8.2 L Hct 25.5 L MCV 75 L MCH 24.1 L RDW 18.0 H Eos % (Auto) 8.3 H Absolute Eos (auto) 0.7 H Potassium 5.2 H Anion Gap 4 L BUN 60 H Creatinine 3.03 H Est GFR ( Amer) 18 L Est GFR (MDRD) Non-Af 15 L Glucose 134 H AST 44 H Ammonia < 8.7 L Albumin 2.5 L Critical Laboratory Results Reviewed: Yes Attending or Supervising Physician who Reviewed Labs: GAL DE LA GARZA - Radiology Results Critical Radiology Results Reviewed: No Critical Results - EKG Interpretation by Me Additional EKG results interpreted by me: 03/22/20 06:40 Twelve-lead EKG reviewed by me contemporaneously: 0248 hrs. Indication for study: Altered mental status Rhythm: Normal sinus with first-degree AV block Rate: 72 Intervals: QRS prolongation 152 ms QRS axis: -[address]/T wave changes: None Comparison with prior tracing: Compared with prior tracing of 02/28/2020 there is persistence of first-degree AV block and left bundle branch block Interpretation: No significant interval change compared to prior tracing. Discharge - Discharge Clinical Impression: Altered mental status, Dehydration, Acute kidney injury, Sacral decubitus Condition: Good Disposition: ADMITTED OBSERVATION Admitting Provider: Chelsea (Hospitalist) Unit Admitted: Medical Floor Referrals: GRAY PATEL MD [Primary Care Provider] - Follow up as needed
[2020-03-22] MEDS ORDERED: NORMAL SALINE 1000 ML 1,000 ML IV ONE (06:38)
--- NOTE | 2020-03-22 06:55 | RADIOLOGY REPORT (SQ) ---
CT head without contrast on 03/22/2020 at 5:46 AM CLINICAL INDICATION: Altered mental status TECHNIQUE: Multiple axial images are obtained throughout the head without the administration of contrast. This exam was performed according to our departmental dose-optimization program, which includes automated exposure control, adjustment of the mA and/or kV according to patient size and/or use of iterative reconstruction technique. Total DLP is 1070.38 mGy*cm. COMPARISON: None FINDINGS: There is no hydrocephalus. There is no CT evidence of acute infarct. There is no hemorrhage. There are no abnormal extra-axial fluid collections. There is no mass, mass effect or midline shift. No bony abnormality is noted. There is partial opacification of the left mastoid air cells, please correlate clinically if there is any clinical concern for mastoiditis. IMPRESSION: 1. No acute intracranial abnormality. 2. Partial opacification of the left mastoid air cells may just represent mastoid effusion but please correlate clinically.
--- NOTE | 2020-03-22 07:46 | RADIOLOGY REPORT (SQ) ---
CHEST X-RAY 1 VIEW on 03/22/2020 at 6:50 AM CLINICAL INDICATION: Fever COMPARISON: 02/28/2020 FINDINGS: The patient is status post median sternotomy. Vascular calcification is noted in the aorta. Mild cardiomegaly is noted. The lungs now appear clear. Hilar and mediastinal contours are within normal limits. No bony normality is noted. IMPRESSION: Cardiomegaly with no acute pulmonary disease.
--- NOTE | 2020-03-22 09:46 | EKG REPORT ---
SEVERITY:- ABNORMAL ECG - SINUS RHYTHM FIRST DEGREE AV BLOCK LEFT BUNDLE BRANCH BLOCK : Confirmed by: Hunter Fountain MD 22-Mar-2020 09:45:50
[2020-03-22] MEDS ORDERED: MAG HYDROX/AL HYDROX/SIMETH SUSP 30 ML UDCUP PO PRN (13:09)
[2020-03-22] MEDS ORDERED: ONDANSETRON HCL INJ/PF 4 MG/2 ML SDV IV PRN (13:09)
[2020-03-22] MEDS ORDERED: NORMAL SALINE 1000 ML 1,000 ML IV PRN ×2 (13:09→15:03)
[2020-03-22] MEDS ORDERED: DEXTROSE 50%-WATER 25 GM/50 ML DISP.SYRIN IV PRN ×2 (13:39)
[2020-03-22] MEDS ORDERED: GLUCAGON,HUMAN RECOMB 1 MG INJ IM PRN (13:39)
[2020-03-22] MEDS ORDERED: DEXTROSE 40% GEL 15 GM TUBE PO PRN ×2 (13:39)
[2020-03-22] MEDS ORDERED: HEPARIN SOD (PORCINE) 5,000 UNIT/ML 1 ML VIAL SUBCUT SCH (14:00)
--- NOTE | 2020-03-22 14:19 | PDOC H&P ---
History of Present Illness Admission Date/PCP: 03/22/20 10:35 GRAY PATEL MD Patient complains of: acting unusual History of Present Illness: CELSO KENNEDY is a 84 year old female with history of CAD, CHF, recent staph bacteremia, atrial fibrillation, type 2 diabetes, who presents to the hospital via EMS for evaluation of altered mental status. According to patient's daughter who lives with patient, patient has been having poor appetite and decreased p.o. intake for the past several days. She has also been low in energy level. This has been difficult getting her into her wheelchair as before. 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 They also having a tough time taking care of her. Apparently this morning around 1:59 AM, patient seemed to be confused so they brought her to the hospital. She was also noted to be diaphoretic. In the ER she received IV hydration. Her creatinine was noted to be 3.03 which is higher than her baseline of 2. She was subsequently recommended for admission. I did discuss with the daughter and she informs me that upon leaving shortly before patient was scheduled to be brought upstairs, patient seems to be back to her mental baseline. On my encounter, patient does not seem confused. She does admit to poor appetite and fatigue. Also states that the food does not taste good anymore. 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 Social History Lives with: Family Smoking Status: Never Smoker Frequency of Alcohol Use: None Hx Recreational Drug Use: No - Advance Directive Resuscitation Status: Do Not Resuscitate Family History Family History: DM, Hypertension, Other - Obesity Parental Family History Reviewed: Yes Children Family History Reviewed: Yes Sibling(s) Family History Reviewed.: Yes Medication/Allergy Home Medications: Atorvastatin Calcium [Lipitor 40 mg Tablet] 40 mg PO QHS 02/28/20 Carvedilol 25 mg PO BID 02/28/20 Clonidine HCl [Catapres 0.2 mg Tablet] 0.2 mg PO Q8 02/28/20 Clopidogrel Bisulfate [Plavix 75 mg Tablet] 75 mg PO DAILY 02/28/20 Insulin Glargine,Hum.rec.anlog [Lantus Insulin 100 Unit/mL Insulin Pen] 44 units SQ DAILY 02/28/20 Lisinopril [Zestril] 40 mg PO DAILY 02/28/20 Paricalcitol [Zemplar 1 Mcg Capsule] 1 mcg PO DAILY 02/28/20 Apixaban [Eliquis 2.5 mg Tablet] 2.5 mg PO BID #60 tablet 03/04/20 Furosemide [Lasix 40 mg Tablet] 40 mg PO BID #60 tablet 03/04/20 Insulin Lispro [Humalog Kwikpen U-100] 8 unit SQ BID #0 03/04/20 Aspirin [Ecotrin 81 mg EC Tablet] 81 mg PO DAILY 03/22/20 Ferrous Sulfate [Ferosul] 325 mg PO DAILY 03/22/20 Multivitamin [Tab-A-Marilynn (Multiple Vitamin) Tablet] 1 tab PO DAILY 03/22/20 Allergies/Adverse Reactions: Penicillins Allergy (Verified 02/28/20 09:49) Review of Systems Constitutional: PRESENT: fatigue. ABSENT: fever(s) Eyes: ABSENT: visual disturbances Ears: ABSENT: hearing changes Nose, Mouth, and Throat: ABSENT: headache(s) Cardiovascular: ABSENT: chest pain, dyspnea on exertion Respiratory: ABSENT: cough, dyspnea Gastrointestinal: ABSENT: abdominal pain, diarrhea, nausea, vomiting Genitourinary: ABSENT: difficulty urinating, dysuria Neurological: ABSENT: abnormal speech, confusion, dizziness Endocrine: ABSENT: polyuria Hematologic/Lymphatic: ABSENT: easy bleeding Allergic/Immunologic: ABSENT: seasonal rhinorrhea Physical Exam Vital Signs: Temp Pulse Resp BP Pulse Ox 98.2 F 74 16 113/62 99 03/22/20 12:09 03/22/20 12:09 03/22/20 12:09 03/22/20 12:09 03/22/20 12:09 Intake & Output 03/21/20 03/22/20 03/23/20 06:59 06:59 06:59 Weight 123.9 kg General appearance: PRESENT: no acute distress, cooperative Head exam: PRESENT: normocephalic Eye exam: PRESENT: EOMI, PERRLA Neck exam: ABSENT: JVD Respiratory exam: PRESENT: clear to auscultation klaudia, symmetrical, unlabored. ABSENT: accessory muscle use, tachypnea, wheezes Cardiovascular exam: PRESENT: RRR, +S1, +S2, systolic murmur - Mild 2/6. ABSENT: tachycardia GI/Abdominal exam: PRESENT: soft. ABSENT: rebound, rigid, tenderness Extremities exam: PRESENT: other - Left BKA. ABSENT: calf tenderness, pedal edema Neurological exam: PRESENT: alert, awake, oriented to person, oriented to place, oriented to time, oriented to situation, other - Not confused Psychiatric exam: ABSENT: agitated, anxious Focused psych exam: ABSENT: pressured speech Skin exam: ABSENT: jaundice Results Laboratory Results: 03/22/20 04:37 03/22/20 04:37 03/22/20 03/22/20 03/22/20 04:37 04:37 05:11 WBC 8.7 RBC 3.38 L Hgb 8.2 L Hct 25.5 L MCV 75 L MCH 24.1 L MCHC 32.0 RDW 18.0 H Plt Count 289 Seg Neutrophils % 55.4 Sodium 138.6 Potassium 5.2 H Chloride 107 Carbon Dioxide 28 Anion Gap 4 L BUN 60 H Creatinine 3.03 H Est GFR ( Amer) 18 L Glucose 134 H Calcium 9.0 Magnesium 2.3 Total Bilirubin 0.5 AST 44 H Alkaline Phosphatase 86 Ammonia Total Protein 6.3 Albumin 2.5 L Urine Color YELLOW Urine Appearance CLEAR Urine pH 6.0 Ur Specific [place] 1.011 Urine Protein NEGATIVE Urine Glucose (UA) NEGATIVE Urine Ketones NEGATIVE Urine Blood NEGATIVE Urine Nitrite NEGATIVE Ur Leukocyte Esterase NEGATIVE Urine WBC (Auto) 1 Urine RBC (Auto) 1 03/22/20 08:47 WBC RBC Hgb Hct MCV MCH MCHC RDW Plt Count Seg Neutrophils % Sodium Potassium Chloride Carbon Dioxide Anion Gap BUN Creatinine Est GFR ( Amer) Glucose Calcium Magnesium Total Bilirubin AST Alkaline Phosphatase Ammonia < 8.7 L Total Protein Albumin Urine Color Urine Appearance Urine pH Ur Specific [place] Urine Protein Urine Glucose (UA) Urine Ketones Urine Blood Urine Nitrite Ur Leukocyte Esterase Urine WBC (Auto) Urine RBC (Auto) 03/22/20 04:37 Troponin I 0.032 Impressions: Head CT 03/22/20 05:12 IMPRESSION: 1. No acute intracranial abnormality. 2. Partial opacification of the left mastoid air cells may just represent mastoid effusion but please correlate clinically. Chest X-Ray 03/22/20 06:17 IMPRESSION: Cardiomegaly with no acute pulmonary disease. Assessment and Plan - Diagnosis (1) Dehydration Is this a current diagnosis for this admission?: Yes Plan: She appears dehydrated with poor skin turgor. She has had decreased oral intake. We will give her some IV fluids. Cautious fluid rehydration given her history of systolic and diastolic heart failure. Likely dehydration played a role in her confusion this am. (2) Acute kidney injury superimposed on CKD Is this a current diagnosis for this admission?: Yes Plan: Baseline is 2. Creatinine currently at 3. We will give IV fluids and monitor response. (3) Weakness Is this a current diagnosis for this admission?: Yes Plan: Daughter reports difficulty managing patient at home. We will consult social work case manager to see how we can help out. She is wheelchair-bound more requiring my assist as these days getting patient into wheelchair. Also check thyroid levels. (4) Chronic combined systolic and diastolic CHF (congestive heart failure) Is this a current diagnosis for this admission?: Yes Plan: Notably has EF of 35% with grade 2 diastolic dysfunction. Hold Lasix for now. Continue Coreg. Plan to resume lisinopril tomorrow. (5) History of bacteremia Is this a current diagnosis for this admission?: Yes Plan: Completed treatment for coagulase-negative staph bacteremia during last hospitalization. We will repeat blood culture to see if this could be contributing to her recent weakness. (6) Type 2 diabetes mellitus Qualifiers: Diabetes mellitus fpc insulin use: with rn long term care use Diabetes mellitus complication status: with kidney complications Diabetes mellitus complication detail: with chronic kidney disease Chronic kidney disease stage: stage 3 (moderate) Is this a current diagnosis for this admission?: Yes Plan: Sliding scale insulin. Lantus. Accu-Cheks. ADA diet. (7) Advance care planning Is this a current diagnosis for this admission?: Yes Plan: Discussed patient's conditions. Discussed her weakness/chf. Confirm she wants to be a DO NOT RESUSCITATE/DO NOT INTUBATE. Does not want intubation even in the absence of cardiac arrest. Otherwise wants full treatment. I related patient wishes to patient's daughter Tania during our phone conversation. - Time Time Spent with patient: 35 or more minutes Anticipated Discharge Disposition: Snf Facility Anticipated Discharge Timeframe: within 24 hours
[2020-03-22] MEDS: INSULIN LISPRO 100 UNIT/ML 3 ML VIAL SUBCUT SCH ×3 (16:09→22:42)
[2020-03-22] MEDS ORDERED: INSULIN GLARGINE,HUM.REC.ANLOG 1,000 UNIT/10 ML VIAL SUBCUT SCH (22:00)
[2020-03-22] MEDS ORDERED: ATORVASTATIN CALCIUM 40 MG TABLET PO SCH (22:00)
[2020-03-22] MEDS: CLONIDINE HCL 0.2 MG TABLET PO SCH (22:42)
[2020-03-22] MEDS: APIXABAN 2.5 MG TABLET PO SCH (22:42)
[2020-03-22] MEDS: CARVEDILOL 12.5 MG TABLET PO SCH (22:42)
[2020-03-23 05:01] LABS: HEMATOCRIT 26.3 % (36.0-47.0); HEMOGLOBIN 8.4 g/dL (12.0-15.5); MEAN CORPUSCULAR HEMOGLOBIN 24.2 pg (27.0-33.4); MEAN CORPUSCULAR HGB CONC 31.9 g/dL (32.0-36.0); MEAN CORPUSCULAR VOLUME 76 fl (80-97); PLATELET COUNT 293 10^3/uL (150-450); RED BLOOD COUNT 3.47 10^6/uL (3.72-5.28); RED CELL DISTRIBUTION WIDTH 18.1 % (11.5-14.0); WHITE BLOOD COUNT 6.7 10^3/uL (4.0-10.5)
[2020-03-23] MEDS: CLONIDINE HCL 0.2 MG TABLET PO SCH ×2 (05:01→13:28)
[2020-03-23 05:21] LABS: BLOOD UREA NITROGEN 54 mg/dL (7-20); CALCIUM 9.2 mg/dL (8.4-10.2); CARBON DIOXIDE 25 mmol/L (22-30); CHLORIDE 111 mmol/L (98-107); GLUCOSE 82 mg/dL (75-110)
[2020-03-23 05:32] LABS: ANION GAP 4 (5-19); FREE T4 (FREE THYROXINE) 1.49 ng/dL (0.78-2.19)
[2020-03-23 05:46] LABS: THYROID STIMULATING HORMONE 1.39 uIU/mL (0.47-4.68)
[2020-03-23] MEDS ORDERED: NORMAL SALINE 1000 ML 1,000 ML IV ONE (08:03)
[2020-03-23] MEDS: INSULIN LISPRO 100 UNIT/ML 3 ML VIAL SUBCUT SCH ×4 (08:15→12:13)
[2020-03-23] MEDS: APIXABAN 2.5 MG TABLET PO SCH (09:08)
[2020-03-23] MEDS: CARVEDILOL 12.5 MG TABLET PO SCH (09:08)
[2020-03-23] MEDS ORDERED: FERROUS SULFATE 325 MG TABLET PO SCH (10:00)
[2020-03-23] MEDS ORDERED: ONDANSETRON HCL INJ/PF 4 MG/2 ML SDV IV PRN (10:00)
[2020-03-23] MEDS ORDERED: LISINOPRIL 10 MG TABLET PO SCH (10:00)
[2020-03-23] MEDS ORDERED: ASPIRIN 81 MG TABLET, ENT COATED PO SCH (10:00)
[2020-03-23] MEDS ORDERED: MULTIVITAMIN TABLET PO SCH (10:00)
[2020-03-23 13:14] VITALS: BP 134/55
[2020-03-23 14:29] LABS: ANION GAP 8 (5-19); BLOOD UREA NITROGEN 49 mg/dL (7-20); CARBON DIOXIDE 23 mmol/L (22-30); CHLORIDE 108 mmol/L (98-107); GLUCOSE 172 mg/dL (75-110); POTASSIUM 4.5 mmol/L (3.6-5.0)
--- NOTE | 2020-03-23 16:12 | PDOC DISCHARGE SUMMARY ---
Impression - Admit/DC Date/PCP Admission Date/Primary Care Provider: 03/22/20 10:35 GRAY PATEL MD Discharge Date: 03/23/20 - Discharge Diagnosis (1) Dehydration Is this a current diagnosis for this admission?: Yes (2) Acute kidney injury superimposed on CKD Is this a current diagnosis for this admission?: Yes (3) Weakness Is this a current diagnosis for this admission?: Yes (4) Chronic combined systolic and diastolic CHF (congestive heart failure) Is this a current diagnosis for this admission?: Yes (5) History of bacteremia Is this a current diagnosis for this admission?: Yes (6) Type 2 diabetes mellitus Is this a current diagnosis for this admission?: Yes (7) Advance care planning Is this a current diagnosis for this admission?: Yes - Additional Information Resuscitation Status: Do Not Resuscitate Discharge Diet: Cardiac - low sodium diet Referrals: GRAY PATEL MD [Primary Care Provider] - Follow up as needed MIQUEL DESOUZA MD [ACTIVE STAFF] - Home Medications: Atorvastatin Calcium [Lipitor 40 mg Tablet] 40 mg PO QHS 02/28/20 Carvedilol 25 mg PO BID 02/28/20 Clonidine HCl [Catapres 0.2 mg Tablet] 0.2 mg PO Q8 02/28/20 Clopidogrel Bisulfate [Plavix 75 mg Tablet] 75 mg PO DAILY 02/28/20 Lisinopril [Zestril] 40 mg PO DAILY 02/28/20 Paricalcitol [Zemplar 1 Mcg Capsule] 1 mcg PO DAILY 02/28/20 Apixaban [Eliquis 2.5 mg Tablet] 2.5 mg PO BID #60 tablet 03/04/20 Insulin Lispro [Humalog Kwikpen U-100] 8 unit SQ BID #0 03/04/20 Aspirin [Ecotrin 81 mg EC Tablet] 81 mg PO DAILY 03/22/20 Ferrous Sulfate [Ferosul] 325 mg PO DAILY 03/22/20 Multivitamin [Tab-A-Marilynn (Multiple Vitamin) Tablet] 1 tab PO DAILY 03/22/20 Furosemide [Lasix 40 mg Tablet] 40 mg PO DAILY #60 tablet 03/23/20 Insulin Glargine,Hum.rec.anlog [Lantus Insulin 100 Unit/mL Insulin Pen] 30 units SQ DAILY #0 03/23/20 History of Present Illiness History of Present Illness: CELSO KENNEDY is a 84 year old female with history of CAD, CHF, recent staph bacteremia, atrial fibrillation, type 2 diabetes, who presents to the hospital via EMS for evaluation of altered mental status. According to patient's daughter who lives with patient, patient has been having poor appetite and decreased p.o. intake for the past several days. She has also been low in energy level. This has been difficult getting her into her wheelchair as before. 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 They also having a tough time taking care of her. Apparently this morning around 1:59 AM, patient seemed to be confused so they brought her to the hospital. She was also noted to be diaphoretic. In the ER she received IV hydration. Her creatinine was noted to be 3.03 which is higher than her baseline of 2. She was subsequently recommended for admission. I did discuss with the daughter and she informs me that upon leaving shortly before patient was scheduled to be brought upstairs, patient seems to be back to her mental baseline. On my encounter, patient does not seem confused. She does admit to poor appetite and fatigue. Also states that the food does not taste good anymore. Hospital Course Hospital Course: Patient was admitted to the hospital for dehydration. Work-up for other causes of her confusion were unremarkable including urinalysis, chest x-ray metabolic panel. She was noted to have mild CLARA on CKD. He was given IV hydration. On examination she appeared quite dry and her lower extremity swelling was completely resolved. No evidence of fluid overload at all. Notably she has not been eating or drinking very well in the past few days while still taking her Lasix 40 mg twice a day. I think this certainly contributed to her dehydration. We will give her some fluid back with IV hydration. She has actually been at baseline mental status since admission and is willing to go home. I discussed the patient's daughter who was concerned about getting more help at home. I consulted dialysis social worker and had further conversation with patient's daughter today. Patient's daughter would like us to set them up with more frequent physical therapy at least 3 times a week as well as home health aide. I will s et patient up with PT/OT/social work/home health aide and correction to help make managing her at home easier. Patient has also been set up to follow- up with Dr. Desouza in 1 week. I have decreased her Lasix dose from twice a day to 40 mg daily but have instructed that her Lasix be held for now and not resumed until patient's appetite and fluid intake has improved. Physical Exam Vital Signs: Temp Pulse Resp BP Pulse Ox 97.9 F 72 22 H 134/55 H 100 03/23/20 13:12 03/23/20 13:12 03/23/20 13:12 03/23/20 13:12 03/23/20 13:12 Intake & Output 03/22/20 03/23/20 03/24/20 06:59 06:59 06:59 Intake Total 1460 1850 Balance 1460 1850 Weight 124.2 kg General appearance: PRESENT: no acute distress, cooperative Extremities exam: ABSENT: pedal edema Neurological exam: PRESENT: alert, awake, oriented to person, oriented to place, oriented to time Results Laboratory Results: WBC 6.7 10^3/uL (4.0-10.5) 03/23/20 04:27 RBC 3.47 10^6/uL (3.72-5.28) L 03/23/20 04:27 Hgb 8.4 g/dL (12.0-15.5) L 03/23/20 04:27 Hct 26.3 % (36.0-47.0) L 03/23/20 04:27 MCV 76 fl (80-97) L 03/23/20 04:27 MCH 24.2 pg (27.0-33.4) L 03/23/20 04:27 MCHC 31.9 g/dL (32.0-36.0) L 03/23/20 04:27 RDW 18.1 % (11.5-14.0) H 03/23/20 04:27 Plt Count 293 10^3/uL (150-450) 03/23/20 04:27 Lymph % (Auto) 28.2 % (13-45) 03/22/20 04:37 [place] % (Auto) 7.6 % (3-13) 03/22/20 04:37 Eos % (Auto) 8.3 % (0-6) H 03/22/20 04:37 Baso % (Auto) 0.5 % (0-2) 03/22/20 04:37 Absolute Neuts (auto) 4.8 10^3/uL (1.7-8.2) 03/22/20 04:37 Absolute Lymphs (auto) 2.5 10^3/uL (0.5-4.7) 03/22/20 04:37 Absolute Monos (auto) 0.7 10^3/uL (0.1-1.4) 03/22/20 04:37 Absolute Eos (auto) 0.7 10^3/uL (0.0-0.6) H 03/22/20 04:37 Absolute Basos (auto) 0.0 10^3/uL (0.0-0.2) 03/22/20 04:37 Seg Neutrophils % 55.4 % (42-78) 03/22/20 04:37 Sodium 139.2 mmol/L (137-145) 03/23/20 13:50 Potassium 4.5 mmol/L (3.6-5.0) 03/23/20 13:50 Chloride 108 mmol/L (98-107) H 03/23/20 13:50 Carbon Dioxide 23 mmol/L (22-30) 03/23/20 13:50 Anion Gap 8 (5-19) 03/23/20 13:50 BUN 49 mg/dL (7-20) H 03/23/20 13:50 Creatinine 2.95 mg/dL (0.52-1.25) H 03/23/20 13:50 Est GFR ( Amer) 18 (>60) L 03/23/20 13:50 Est GFR (MDRD) Non-Af 15 (>60) L 03/23/20 13:50 Glucose 172 mg/dL (75-110) H 03/23/20 13:50 POC Glucose 148 mg/dL (70-110) H 03/23/20 11:52 Calcium 9.0 mg/dL (8.4-10.2) 03/23/20 13:50 Magnesium 2.3 mg/dL (1.6-2.3) 03/22/20 04:37 Total Bilirubin 0.5 mg/dL (0.2-1.3) 03/22/20 04:37 Direct Bilirubin 0.3 mg/dL (0.0-0.4) 03/22/20 04:37 Neonat Total Bilirubin Not Reportable 03/22/20 04:37 Neonat Direct Bilirubin Not Reportable 03/22/20 04:37 Neonat Indirect Bili Not Reportable 03/22/20 04:37 AST 44 U/L (14-36) H 03/22/20 04:37 ALT 27 U/L (<35) 03/22/20 04:37 Alkaline Phosphatase 86 U/L (38-126) 03/22/20 04:37 Ammonia < 8.7 umol/L (9-33) L 03/22/20 08:47 Troponin I 0.032 ng/mL 03/22/20 04:37 Total Protein 6.3 g/dL (6.3-8.2) 03/22/20 04:37 Albumin 2.5 g/dL (3.5-5.0) L 03/22/20 04:37 TSH 1.39 uIU/mL (0.47-4.68) 03/23/20 04:27 Free T4 1.49 ng/dL (0.78-2.19) 03/23/20 04:27 Urine Color YELLOW 03/22/20 05:11 Urine Appearance CLEAR 03/22/20 05:11 Urine pH 6.0 (5.0-9.0) 03/22/20 05:11 Ur Specific [place] 1.011 03/22/20 05:11 Urine Protein NEGATIVE mg/dL (NEGATIVE) 03/22/20 05:11 Urine Glucose (UA) NEGATIVE mg/dL (NEGATIVE) 03/22/20 05:11 Urine Ketones NEGATIVE mg/dL (NEGATIVE) 03/22/20 05:11 Urine Blood NEGATIVE (NEGATIVE) 03/22/20 05:11 Urine Nitrite NEGATIVE (NEGATIVE) 03/22/20 05:11 Urine Bilirubin NEGATIVE (NEGATIVE) 03/22/20 05:11 Urine Urobilinogen NEGATIVE mg/dL (<2.0) 03/22/20 05:11 Ur Leukocyte Esterase NEGATIVE (NEGATIVE) 03/22/20 05:11 Urine WBC (Auto) 1 /HPF 03/22/20 05:11 Urine RBC (Auto) 1 /HPF 03/22/20 05:11 U Hyaline Cast (Auto) 2 /LPF 03/22/20 05:11 Squamous Epi Cells Auto <1 /HPF 03/22/20 05:11 Urine Mucus (Auto) RARE /LPF 03/22/20 05:11 Urine Ascorbic Acid NEGATIVE (NEGATIVE) 03/22/20 05:11 Urine Opiates Screen NEGATIVE 03/22/20 05:11 Urine Methadone Screen NEGATIVE 03/22/20 05:11 Ur Barbiturates Screen NEGATIVE 03/22/20 05:11 Ur Phencyclidine Scrn NEGATIVE 03/22/20 05:11 Ur Amphetamines Screen NEGATIVE 03/22/20 05:11 U Benzodiazepines Scrn NEGATIVE 03/22/20 05:11 Urine Cocaine Screen NEGATIVE 03/22/20 05:11 U Marijuana (THC) Screen NEGATIVE 03/22/20 05:11 Serum Alcohol < 10 mg/dL (NONE DETECTED) 03/22/20 04:37 Influenza A (RT-PCR) NEGATIVE (NEGATIVE) 03/22/20 12:42 Influenza B (RT-PCR) NEGATIVE (NEGATIVE) 03/22/20 12:42 RSV (RT-PCR) NEGATIVE (NEGATIVE) 03/22/20 12:42 SARS-CoV-2 Rap RNA(RT-PCR) NEGATIVE (NEGATIVE) 03/22/20 12:42 03/22/20 04:37 Troponin I 0.032 Impressions: Head CT 03/22/20 05:12 IMPRESSION: 1. No acute intracranial abnormality. 2. Partial opacification of the left mastoid air cells may just represent mastoid effusion but please correlate clinically. Chest X-Ray 03/22/20 06:17 IMPRESSION: Cardiomegaly with no acute pulmonary disease. Plan Time Spent: Less than 30 Minutes Stroke Is this a Stroke Patient?: No Acute Heart Failure Is this a Heart Failure Patient?: No
== END 2020-03-23 17:13 | disposition home health service (06) ==
LOC: ER 02:02 → EH 10:35 → 4W 12:33
PROVIDERS: ADMIT Internal Medicine; ATTEND Internal Medicine
DX: E86.0 Dehydration (principal); R53.1 Weakness; E11.22 Type 2 diabetes mellitus with diabetic chronic kidney disease; I13.0 Hypertensive heart and chronic kidney disease with heart failure and stage 1 through stage 4 chronic kidney disease, or unspecified chronic kidney disease; N18.30 Chronic kidney disease, stage 3 unspecified; I50.42 Chronic combined systolic (congestive) and diastolic (congestive) heart failure; N17.9 Acute kidney failure, unspecified; I25.10 Atherosclerotic heart disease of native coronary artery without angina pectoris; Z99.3 Dependence on wheelchair; Z20.828 Contact with and (suspected) exposure to other viral communicable diseases; L89.152 Pressure ulcer of sacral region, stage 2; L97.418 Non-pressure chronic ulcer of right heel and midfoot with other specified severity; E66.9 Obesity, unspecified; I44.0 Atrioventricular block, first degree; I25.2 Old myocardial infarction; Z66 Do not resuscitate; Z89.512 Acquired absence of left leg below knee; Z79.899 Other long term (current) drug therapy; Z79.4 Long term (current) use of insulin; Z86.19 Personal history of other infectious and parasitic diseases; Z87.01 Personal history of pneumonia (recurrent); Z95.1 Presence of aortocoronary bypass graft; I44.7 Left bundle-branch block, unspecified; E78.5 Hyperlipidemia, unspecified; I48.91 Unspecified atrial fibrillation; Z79.01 Long term (current) use of anticoagulants
CPT/HCPCS: 93005; 99285; 36415 ×2; 87040; 84439; 82962 ×2; 80307 ×2; 82140; 83735; 84443; 85025; 85027; 0241U ×4; 80048; 80053; 81001; 84484; 71045; 70450; 93010; G0378 ×2; A9270 ×13; J1644; J3490 ×2; J7030 ×2; C9803; J1815